=== PATIENT | female | born 1985 | race Caucasian/White ===

== ENCOUNTER → 2016-04-14 | Outpatient (CLI) | payer OTHER ==
[~2016-04-14] MED LIST: /QUET10TA OR; ACET50TA PO; ANUS2.5C2 PR; COLA50CA3 PO; DEPA500T2 OR; DEPO150I IM; EFFE150C OR; FLUO20SO2 OR; IBUP600T26 PO; MOM30SS PO; NAPR500T2 PO; NEUR300C PO; PRENTAB74 PO; PROT20TA11 PO; SERO1TAB PO; TRAM50TA2 OR; VIST50CA PO; ZANA2CAP PO
== END ==
LOC: M OUTALCOH 12:48
PROVIDERS: ATTEND Psychiatry & Neurology Psychiatry
DX: F11.20 Opioid dependence, uncomplicated (principal); F12.20 Cannabis dependence, uncomplicated

== ENCOUNTER 2016-05-23 10:00 | Outpatient (RCR) | payer OTHER | END 2016-05-26 | LOC: M OUTALCOH 10:00 | PROVIDERS: ATTEND Psychiatry & Neurology Psychiatry | DX: F11.20 Opioid dependence, uncomplicated (principal); F12.20 Cannabis dependence, uncomplicated ==

== ENCOUNTER → 2016-06-07 | Outpatient (REF) | payer MEDICAID | LOC: M LAB REF 19:18 | PROVIDERS: ATTEND Physician Assistant | DX: J06.9 Acute upper respiratory infection, unspecified (principal) ==

== ENCOUNTER 2016-06-20 10:00 | Outpatient (RCR) | payer MEDICAID | END 2016-06-25 | LOC: M OUTALCOH 10:00 | PROVIDERS: ATTEND Psychiatry & Neurology Psychiatry | DX: F11.20 Opioid dependence, uncomplicated (principal); F12.20 Cannabis dependence, uncomplicated ==

== ENCOUNTER 2016-07-18 16:44 | Emergency (ER) | payer MEDICAID, OTHER ==
[~2016-07-18] VITALS: Ht 170.2 cm; Wt 103.4 kg
[2016-07-18 16:45] VITALS: BP 108/67
[2016-07-18] MEDS ORDERED: [UNRECOGNIZED DRUG - OTHER] (16:58)
[2016-07-18] MEDS ORDERED: PROZ20CA11 PO (16:58)
[2016-07-18] MEDS ORDERED: TOPA100T8 PO (16:58)
[2016-07-18] MEDS ORDERED: SUBO8MIS SL (16:58)
[2016-07-18 19:10] LABS: MEAN CORPUSCULAR HEMOGLOBIN 27.9 pg (27.0-33.0); MEAN CORPUSCULAR HGB CONC 33.4 g/dl (32.0-36.5); MEAN CORPUSCULAR VOLUME 83.7 fl (80.0-96.0); RED CELL DISTRIBUTION WIDTH 12.7 % (11.5-14.5); WHITE BLOOD COUNT 8.5 K/mm3 (4.0-10.0)
[2016-07-18 19:17] LABS: CONTROL LINE HCG INT CTR LINE PRESENT
[2016-07-18 19:26] LABS: ALBUMIN 3.2 GM/DL (3.2-5.2); ALBUMIN/GLOBULIN RATIO 0.74 (1.00-1.93); ALKALINE PHOSPHATASE 71 U/L (45-117); ALT/SGPT 28 U/L (12-78); AST/SGOT 30 U/L (15-37); BILIRUBIN,DIRECT < 0.1 MG/DL (0.0-0.2); BILIRUBIN,TOTAL 0.2 MG/DL (0.2-1.0); TOTAL PROTEIN 7.5 GM/DL (6.4-8.2)
[2016-07-18] MEDS ORDERED: CLINDAMYCIN 900 MG in APPROPRIATE DILUENT 1 EA IV ONE (19:30)
[2016-07-18] MEDS ORDERED: CLEO300C2 PO (20:36)
== END 2016-07-18 20:59 | disposition home or self-care (01) ==
LOC: M ED 17:02
DX: L03.113 Cellulitis of right upper limb (principal); L03.114 Cellulitis of left upper limb; F17.200 Nicotine dependence, unspecified, uncomplicated; Z79.899 Other long term (current) drug therapy; Z88.5 Allergy status to narcotic agent

== ENCOUNTER → 2016-08-03 | Outpatient (CLI) | payer MEDICAID ==
[~2016-08-03] MED LIST changes: +CLEO300C2 PO; +PROZ20CA11 PO; +SUBO8MIS SL; +TOPA100T8 PO; +[UNRECOGNIZED DRUG - OTHER]
== END ==
LOC: M OUTALCOH 12:52
PROVIDERS: ATTEND Psychiatry & Neurology Psychiatry
DX: F11.20 Opioid dependence, uncomplicated (principal); F12.20 Cannabis dependence, uncomplicated

== ENCOUNTER → 2016-09-25 | Outpatient (CLI) | payer MEDICAID ==
[~2016-09-25] MED LIST changes: +CELE20TA PO; +CELE40TA PO; +CETI10TA PO; +CLON-412; +CLON-412 PO; +CLONI1TA PO; +COLA100C5 PO; +FLUO20CA19; +FLUO20CA19 PO; +FLUTISP; +GABA-282 PO; +GABA600T PO; +MIRT15TA3 PO; +MIRT30TA3 PO; +NAPR250T45 PO; -NAPR500T2 PO; +NAPR500T3 PO; +NAPR500T6 PO; +QUET1TAB8 PO; +TOPA100T12 PO; -TOPA100T8 PO; +TOPI100T9 PO; +TRAZ50TA11 PO; +TRAZO50TA PO
== END ==
LOC: M OUTALCOH 12:05
PROVIDERS: ATTEND Psychiatry & Neurology Psychiatry
DX: F11.20 Opioid dependence, uncomplicated (principal); F12.20 Cannabis dependence, uncomplicated

== ENCOUNTER 2016-11-15 09:19 | Inpatient (IN) | payer MEDICAID ==
[~2016-11-15] VITALS: Ht 170.2 cm; Wt 98.0 kg
[~2016-11-15 09:19] MED LIST changes: -CELE20TA PO; -CELE40TA PO; -CETI10TA PO; -CLON-412; -CLON-412 PO; -CLONI1TA PO; -COLA100C5 PO; -FLUO20CA19; -FLUO20CA19 PO; -FLUTISP; -GABA-282 PO; -GABA600T PO; -MIRT15TA3 PO; -MIRT30TA3 PO; -NAPR250T45 PO; -NAPR500T6 PO; -QUET1TAB8 PO; -TOPI100T9 PO; -TRAZ50TA11 PO; -TRAZO50TA PO
[2016-11-15] MEDS ORDERED: FLUO20CA19 (09:28)
[2016-11-15] MEDS ORDERED: CLON-412 (09:28)
[2016-11-15 11:23] LABS: METHADONE URINE NEGATIVE (NEGATIVE)
[2016-11-15 12:41] LABS: MEAN CORPUSCULAR HEMOGLOBIN 27.7 pg (27.0-33.0); MEAN CORPUSCULAR HGB CONC 31.7 g/dl (32.0-36.5); MEAN CORPUSCULAR VOLUME 87.2 fl (80.0-96.0); WHITE BLOOD COUNT 9.7 K/mm3 (4.0-10.0)
[2016-11-15 12:42] LABS: RED CELL DISTRIBUTION WIDTH 13.3 % (11.5-14.5)
[2016-11-15 13:34] LABS: BLOOD UREA NITROGEN 5 MG/DL (7-18); GLUCOSE, FASTING 110 MG/DL (70-105)
[2016-11-15 13:35] LABS: ALBUMIN 4.3 GM/DL (3.2-5.2); ALBUMIN/GLOBULIN RATIO 1.05 (1.00-1.93); ALKALINE PHOSPHATASE 80 U/L (45-117); ALT/SGPT 39 U/L (12-78); ANION GAP 8 MEQ/L (8-16); AST/SGOT 39 U/L (15-37); BILIRUBIN,DIRECT 0.2 MG/DL (0.0-0.2); BILIRUBIN,TOTAL 0.5 MG/DL (0.2-1.0); CALCIUM LEVEL 9.7 MG/DL (8.5-10.1); CARBON DIOXIDE LEVEL 25 MEQ/L (21-32); CHLORIDE LEVEL 105 MEQ/L (98-107); CREATININE FOR GFR 0.74 MG/DL (0.55-1.02); GLOMERULAR FILTRATION RATE > 60.0 (>60); POTASSIUM SERUM 4.5 MEQ/L (3.5-5.1); SODIUM LEVEL 138 MEQ/L (136-145); TOTAL PROTEIN 8.4 GM/DL (6.4-8.2)
[2016-11-15] MEDS ORDERED: GABA600T PO (19:00)
[2016-11-15] MEDS ORDERED: NAPR500T6 PO (19:00)
[2016-11-15] MEDS ORDERED: FLUO20CA19 PO (19:00)
[2016-11-15] MEDS ORDERED: TOPI100T9 PO (19:00)
[2016-11-15] MEDS ORDERED: SUBO8MIS SL (19:00)
[2016-11-15] MEDS ORDERED: CLON-412 PO (19:00)
[2016-11-15 20:02] VITALS: BP 128/79
[2016-11-15] MEDS ORDERED: MAALOX 30 ML SUSP *UDC PO PRN (21:00)
[2016-11-16 06:58] VITALS: BP 109/55
--- NOTE | 2016-11-16 09:47 | HPEPDOC ---
[facility] Medical History & Physical Date of Admission Nov 16, 2016 History and Physical PCP: Dr Brown ATTENDING: Dr. Nicholas Weber HPI: 31yoF admitted to [facility] for unspecified psychotic disorder, being medically examined today. Patient is a somewhat vague historian and reluctant to provide information at this time. Patient states she is prescribed Suboxone as per Dr. Debby Linares in [facility]. No acute medical complaints today. Denies any fevers, chills, weakness, fatigue , SEGURA, CP, SOB, cough, palpitations, abdominal pain, N/V/D or changes in bowel or bladder habits. PMHx: Anxiety Depression Bipolar disorder Self-mutilation Substance use Chronic back pain Chronic back pain Chronic shoulder pain Chronic pain Chronic headaches. Follows with neurology at [facility]. Follows with neurology at [facility] Astigmatism bilateral eyes. PSHX: Denies SOCHX: Resides in: [facility] Marital Status: Kids: 2 Employment: Unemployed Tobacco use: One half pack per day ETOH: Denies Illicit Drugs: Patient is reluctant to provide history. History of marijuana, opiates. IV Drug Use: Patient is reluctant to provide history, states methamphetamine a few weeks ago, Eboni. Tattoos done unprofessionally: Denies FAMHX: Mother: Unknown Father: Unknown Siblings: One sister Alive, well Children: Alive, diabetes Unexpected deaths due to medical reasons: None. ROS: As noted in HPI, otherwise 11pt ROS of systems reviewed and remarkable only for LMP 10/25/16. PE: GEN: 31 yo F, appears stated age. Well-nourished, well developed. No acute distress. Alert and oriented x 3. Avoids eye contact, reluctant to answer questions. HEENT: Normocephalic, atraumatic. Pupils are equal, round, and reactive to light. Extraocular movements are intact. No nystagmus appreciated. Sclera are nonicteric. Conjunctiva without injection. Nose midline. Nasal turbinates without bogginess. EACs both patent BL. TMs both visualized and beck with good cone of light, no bulging or erythema. No facial asymmetry. Moist mucous membranes. Dentition poor. Pharynx pink and moist. Neck supple, trachea midline. No lymphadenopathy or thyromegaly appreciated. CHEST: Regular rate and rhythm, +S1, +S2 LUNGS: Clear to auscultation bilaterally. No wheezes, rales, or rhonchi. Breathing appears symmetric and easy. Patient is speaking in full sentences. No accessory muscle use. ABD: Round, soft, non-tender, non-distended. +Bowel sounds throughout. No rebound or guarding. No costovertebral angle tenderness. EXT: Pulses 2+ bilaterally dorsalis pedis and radial. No lower extremity edema appreciated. SKIN: [place], dry, warm. Capillary refill <2sec. No rashes. NEURO: Alert and oriented x 3. Cranial nerves III-XII are intact. No focal deficits appreciated. EKG: Pending. A&P: 31yoF admitted to [facility] for unspecified psychotic disorder 1. Psych. Plan per Psychiatry. Obtain baseline EKG to assure the safety of psychiatric medications as they can prolong the QT interval. Check UA/urine culture. 2. Nicotine dependence. Patch available. 3. Chronic migraine headache. Continue Topamax 100 mg by mouth daily. Continue outpatient follow-up with neurology at [facility]. 4. Follow up with PCP on discharge. 5. Substance abuse. Per psychiatry. 6. History of IVDU. Patient declines HIV and hepatitis screening. 7. Chronic neck pain/chronic back pain/chronic shoulder pain/chronic pain. Patient states she does not feel she needs to be evaluated by pain management at this time. Continue gabapentin 600 mg by mouth twice a day. Continue naproxen 500 mg by mouth twice a day as needed. Continue outpatient follow-up. 8. Elevated AST. Recheck CMP in a.m. 9. Abnormal TSH. Recheck TFTs in a.m. 10. Staff member Josselyn SWANSON present throughout exam. Vital Signs Vital Signs Date Time Temp Pulse Resp B/P (MAP) Pulse Ox O2 Delivery O2 Flow Rate FiO2 11/16/16 06:58 98.5 81 16 109/55 (73) Room Air 11/15/16 20:02 18 Laboratory Data Labs 24H Laboratory Tests 2 11/15/16 10:19: Urine Amphetamines Screen NEGATIVE, Urine Benzodiazepines Screen NEGATIVE, Urine Opiates Screen NEGATIVE, Urine Methadone Screen NEGATIVE, Urine Barbiturates Screen NEGATIVE, Urine Phencyclidine Screen NEGATIVE, Urine Cocaine Metabolite Screen NEGATIVE, Urine Cannabinoids Screen NEGATIVE 11/15/16 12:19: Anion Gap 8, Glomerular Filtration Rate > 60.0, Calcium Level 9.7, Aspartate Amino Transf (AST/SGOT) 39H, Alanine Aminotransferase (ALT/SGPT) 39, Alkaline Phosphatase 80, Total Bilirubin 0.5, Direct Bilirubin 0.2, Total Protein 8.4H, Albumin 4.3, Albumin/Globulin Ratio 1.05, Thyroid Stimulating Hormone (TSH) 0.314L, Salicylates Level 5.1, Acetaminophen Level < 2.0L, Ethyl Alcohol Level < 0.003 CBC/BMP Laboratory Tests 11/15/16 12:18 Red Blood Count 5.37, Mean Corpuscular Volume 87.2, Mean Corpuscular Hemoglobin 27.7, Mean Corpuscular Hemoglobin Concent 31.7 L, Red Cell Distribution Width 13.3 11/15/16 12:19 Home Medications Scheduled Buprenorphine/Naloxone (Suboxone 8-2 mg) 1 Mis Mis, 1 MIS SL DAILY Clonidine Hydrochloride (Clonidine HCl) 0.1 Mg Tab, 0.1 MG PO QHS Fluoxetine Hcl (Fluoxetine HCl) 20 Mg Cap, 20 MG PO DAILY Gabapentin (Gabapentin) 600 Mg Tab, 600 MG PO BID Topiramate (Topiramate) 100 Mg Tab, 100 MG PO DAILY Scheduled PRN Naproxen (Naproxen Dr) 500 Mg Tab, 500 MG PO BID PRN for PAIN Allergies Coded Allergies: Codeine (Unverified Allergy, Intermediate, swelling, 11/05/14) Sherice Stack Nov 16, 2016 09:47
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
[2016-11-16] MEDS: TOPIRAMATE (TopAMAX) 100 MG TAB PO SCH (11:34)
[2016-11-16] MEDS: GABAPENTIN 300 MG CAP PO SCH ×2 (11:34→21:14)
[2016-11-16 18:00] VITALS: BP 114/58
--- NOTE | 2016-11-16 19:55 | ECGEPIP ---
Stationary ECG Study [facility] Test Date: 2016-11-16 Pat Name: ARPITA ALBRIGHT Department: Room: [place] [address] Gender: F [employer]: DANNI : 1985 Requested By: Sherice Stack Order Number: [id number] Reading MD: Librado Otero Measurements Intervals [place] Rate: 67 P: 54 MA: 169 QRS: 53 QRSD: 91 T: 28 QT: 399 QTc: 422 Interpretive Statements Normal sinus rhythm Nonspecific ST-T wave abnormalities No significant change when compared to prior tracing of 11/06/2014 Electronically Signed On 11-16-2016 19:55:09 EDT by Librado Otero
[2016-11-17 06:00] VITALS: BP 97/54
[2016-11-17] MEDS: GABAPENTIN 300 MG CAP PO SCH ×2 (09:41→20:03)
[2016-11-17] MEDS: TOPIRAMATE (TopAMAX) 100 MG TAB PO SCH (09:41)
[2016-11-17 10:57] LABS: ALBUMIN 3.7 GM/DL (3.2-5.2); ALBUMIN/GLOBULIN RATIO 1.09 (1.00-1.93); ALKALINE PHOSPHATASE 65 U/L (45-117); ALT/SGPT 31 U/L (12-78); ANION GAP 8 MEQ/L (8-16); AST/SGOT 22 U/L (15-37); BILIRUBIN,TOTAL 0.4 MG/DL (0.2-1.0); BLOOD UREA NITROGEN 11 MG/DL (7-18); CALCIUM LEVEL 9.5 MG/DL (8.5-10.1); CARBON DIOXIDE LEVEL 28 MEQ/L (21-32); CHLORIDE LEVEL 109 MEQ/L (98-107); CREATININE FOR GFR 0.79 MG/DL (0.55-1.02); GLOMERULAR FILTRATION RATE > 60.0 (>60); GLUCOSE, FASTING 87 MG/DL (70-105); POTASSIUM SERUM 4.1 MEQ/L (3.5-5.1); SODIUM LEVEL 145 MEQ/L (136-145); T UPTAKE 36 % (30-39); THYROXINE (T4) 9.4 UG/DL (4.5-12.0); TOTAL PROTEIN 7.1 GM/DL (6.4-8.2)
--- NOTE | 2016-11-17 12:27 | MHIPN ---
DATE: 11/17/2016 Wanda Pina seems slightly clearer today. She is exceptionally tearful. She stated she did Eboni two days ago. The rest of her discussion is vague. She states she does not know where she is going to live, that everyone hates her and that she wants to leave the hospital and that she has been sleeping constantly, but she does not know whether she has a home. MENTAL STATUS EXAMINATION: Her speech initially in the conversation was normal. Thought processes still delayed, poorly associated. The patient may still be having psychotic thoughts, but she is responding to her hallucinations. Judgment and insight are poor. She is fully oriented. Recent and remote memory not able to be determined. Attention and concentration poor. Fund of knowledge not able to be determined. Mood is low. Affect is tearful IMPRESSION: Depression by history. Substance abuse. Psychotic episode, drug induced. At this time, further observation with no immediate treatment decided.
[2016-11-17 12:39] VITALS: BP 124/77
[2016-11-17 18:23] VITALS: BP 115/57
[2016-11-17 19:54] LABS: CONTROL LINE HCG INT CTR LINE PRESENT
[2016-11-17] MEDS: OLANZapine ORAL DISINTEGRATING TAB 5MG PO PRN (20:03)
[2016-11-18 07:06] VITALS: BP 112/56
[2016-11-18] MEDS: TOPIRAMATE (TopAMAX) 100 MG TAB PO SCH (09:15)
[2016-11-18] MEDS: GABAPENTIN 300 MG CAP PO SCH ×2 (09:16→20:30)
[2016-11-18 11:53] VITALS: BP 104/58
--- NOTE | 2016-11-18 17:36 | IPN ---
DATE: 11/18/2016 SUBJECTIVE: Ms. Pina becomes tearful on interview. She feels she has screwed her life up. She is embarrassed that she has walked around town and everyone knows that she has been intoxicated on drugs. She states she would like to go home but she is unable to go home due to the problems she has caused her parents, and is stating she would like to go to rehabilitation. She was in rehabilitation in 2013. MENTAL STATUS EXAMINATION: Speech is sparse. Patient is exceptionally tearful. Thought processes somewhat scattered. No loose associations. No psychotic thoughts. Judgment and insight are good. Fully oriented. Recent and remote memory intact. Attention and concentration normal. No disturbance of language. Full fund of knowledge. Affect is tearful, mood is low. PLAN: At this time, consider preparing the patient to go to drug rehabilitation. DIAGNOSES: 1. Depression reaction. 2. Substance dependence and abuse.
[2016-11-18] MEDS: NAPROXEN 250 MG TAB PO PRN (17:40)
[2016-11-18] MEDS: OLANZapine ORAL DISINTEGRATING TAB 5MG PO PRN (17:41)
[2016-11-18 18:16] VITALS: BP 109/60
[2016-11-19 06:42] VITALS: BP 113/55
[2016-11-19] MEDS: TOPIRAMATE (TopAMAX) 100 MG TAB PO SCH (08:51)
[2016-11-19] MEDS: GABAPENTIN 300 MG CAP PO SCH ×2 (08:51→21:23)
[2016-11-19 12:05] VITALS: BP 112/60
[2016-11-19] MEDS: OLANZapine ORAL DISINTEGRATING TAB 5MG PO PRN ×2 (12:28→18:12)
--- NOTE | 2016-11-19 15:17 | MHIPN ---
DATE: 11/19/2016 Wanda again had difficulty with eye contact and became tearful. She states "I need to take my medicine." She states she wants to get out of here, but she has no significant plan. She says prior to her getting high, she was planning to go to a [facility]'s intermediate and go back to [facility]. She states, "I have no control of things when I am in here." She states, "I don't want anything to happen to my family." She is irritable and states, "I messed everything up." She has numerous worries and concerns, some of which she is sharing, for instance, will she be able to go back to her doctors in [place]. It is my opinion she has other concerns that she is not sharing yet. MENTAL STATUS EXAMINATION: Her thoughts are scattered. No loose associations. No disturbance of speech or language. No psychotic thoughts. Judgment and insight are poor. Fully oriented. Recent and remote memory hard to determine. Attention and concentration are poor. Fund of knowledge seems adequate. Mood is sad and downcast and affect is tearful. PLAN: Further information will be gathered. Patient is presently on her medications that she came in on, gabapentin and Topamax. DIAGNOSES: 1. Affective disorder not otherwise specified (NOS). 2. Substance dependence and abuse.
[2016-11-19] MEDS: ACETAMINOPHEN TAB 650MG DOSE (2X325MG) PO PRN (18:13)
[2016-11-19 18:21] VITALS: BP 116/66
[2016-11-19] MEDS: traZODone 50 MG TAB PO PRN (21:23)
[2016-11-20 06:28] VITALS: BP 120/64
[2016-11-20 06:38] VITALS: BP 110/65
[2016-11-20] MEDS: GABAPENTIN 300 MG CAP PO SCH ×2 (08:46→20:38)
[2016-11-20] MEDS: TOPIRAMATE (TopAMAX) 100 MG TAB PO SCH (08:46)
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
[2016-11-20] MEDS: CitaloPRAM (CeleXA) 20 MG TAB PO SCH (12:22)
[2016-11-20 12:24] VITALS: BP 125/70
[2016-11-20 18:00] VITALS: BP 113/51
[2016-11-20] MEDS: OLANZapine ORAL DISINTEGRATING TAB 5MG PO PRN (19:48)
[2016-11-20] MEDS: NAPROXEN 250 MG TAB PO PRN (20:39)
[2016-11-20 21:00] VITALS: BP 124/66
[2016-11-21 06:23] VITALS: BP 106/59
--- NOTE | 2016-11-21 07:59 | REP ---
Clinical: Abnormal thyroid function tests. Technique: Real time beck scale and color evaluation using linear high frequency transducer. Findings: The thyroid gland is normal in contour, size, echogenicity and overall appearance. No thyroid nodule or cystic changes are appreciated. Right lobe measures 5.6 x 1.9 x 1.8 cm. Left lobe measures 5.6 x 1.4 x 1.1 cm. Isthmus measures 3.3 mm in width. Impression: Normal thyroid ultrasound. Signed by Christopher Ramos MD 11/21/2016 07:50 A
[2016-11-21] MEDS: CitaloPRAM (CeleXA) 20 MG TAB PO SCH (08:48)
[2016-11-21] MEDS: GABAPENTIN 300 MG CAP PO SCH ×2 (08:49→21:33)
[2016-11-21] MEDS: TOPIRAMATE (TopAMAX) 100 MG TAB PO SCH (08:49)
[2016-11-21] MEDS: OLANZapine ORAL DISINTEGRATING TAB 5MG PO PRN ×2 (14:09→21:33)
[2016-11-21] MEDS: ACETAMINOPHEN TAB 650MG DOSE (2X325MG) PO PRN (14:11)
--- NOTE | 2016-11-21 16:42 | IPN ---
DATE: 11/20/2016 Wanda Pina is much clearer today. She states "I need to be tough on myself." She states "I am a piece of shit." She did previously think there were people out to hurt her or her family but she thinks it was due to the drugs. She states she needs to speak with her transitional living services ([facility]) worker and she needs to begin looking for inpatient rehabilitation. She is much clearer today. She was not tearful and was able to complete full sentences. She was less vague. MENTAL STATUS EXAMINATION: Speech was returned to normal. Thought processes seemed clearer and continuous. No loose associations. No psychotic thoughts expressed. Judgment and insight intact. Fully oriented. Recent and remote memory intact. Attention and concentration normal. Full fund of knowledge. Mood is sad. Affect is congruently downcast. IMPRESSION: 1. Acute psychotic reaction. 2. Drug-induced psychosis. 3. Polysubstance dependence. PLAN: To begin appointing the patient towards rehabilitation again.
[2016-11-21 18:00] VITALS: BP 100/50
[2016-11-21] MEDS: traZODone 50 MG TAB PO PRN (21:33)
[2016-11-22 06:55] VITALS: BP 127/71
[2016-11-22] MEDS: CitaloPRAM (CeleXA) 20 MG TAB PO SCH (08:22)
[2016-11-22] MEDS: TOPIRAMATE (TopAMAX) 100 MG TAB PO SCH (08:22)
[2016-11-22] MEDS: GABAPENTIN 300 MG CAP PO SCH ×2 (08:22→20:36)
[2016-11-22] MEDS: OLANZapine ORAL DISINTEGRATING TAB 5MG PO PRN (15:58)
--- NOTE | 2016-11-22 16:27 | MHIPN ---
DATE: 11/22/2016 Wanda Pina discussed how she had, under the influence of drugs, thought that she was being electronically bugged. She states that she needs to go to rehabilitation, but she continues to show ambivalence because she does not want to stay in the hospital and wants to go home prior to going to rehabilitation. She states that she spoke with her parents and that they would allow her to stay at home before going to rehabilitation. I am suggesting that she speak with the town planner, who then can speak with the parents and confirm treatment plan. MENTAL STATUS EXAMINATION: Speech is normal. No disturbance of thought processes. No loose associations. No psychotic thoughts. Judgment and insight are fair. Fully oriented. Recent and remote memory intact. Full attention and concentration. No disturbance of language. Full fund of knowledge. Mood is good. Affect is slightly anxious. DIAGNOSES: 1. Adjustment disorder with depressed mood. 2. Mixed substance abuse.
[2016-11-22 18:00] VITALS: BP 119/75
[2016-11-22] MEDS: NAPROXEN 250 MG TAB PO PRN (20:36)
[2016-11-22] MEDS: traZODone 50 MG TAB PO PRN (20:36)
[2016-11-23 06:00] VITALS: BP 100/55
[2016-11-23] MEDS: GABAPENTIN 300 MG CAP PO SCH ×2 (08:17→20:18)
[2016-11-23] MEDS: OLANZapine ORAL DISINTEGRATING TAB 5MG PO PRN ×2 (08:17→17:06)
[2016-11-23] MEDS: CitaloPRAM (CeleXA) 20 MG TAB PO SCH (08:17)
[2016-11-23] MEDS: TOPIRAMATE (TopAMAX) 100 MG TAB PO SCH (08:17)
--- NOTE | 2016-11-23 10:56 | MHIPN ---
DATE: 11/23/2016 Wanda Pina met with me today. Her mood is better. Her affect is brighter. She does admit that she was feeling that the staff had been talking about her and attempting to cause her harm. She states today she is not feeling that way. Most of these thoughts seem to be attributed to her drug use and the effect it has had on her. She also states that using Prozac also made her hear voices and become extremely anxious. She feels she has "no control" in here. MENTAL STATUS: The patient's speech is normal. Possible continuation of paranoid psychotic thoughts. No loose associations. Judgment and insight are poor. Fully oriented. Recent and remote memory intact. Attention and concentration intact. Full fund of knowledge. Mood is improved. Affect is brighter. DIAGNOSES: Substance induced psychosis. Depression. Polysubstance dependence and abuse. PLAN: Continued observation with regards to patient's paranoia related to drug use and continued planning on patient going to drug rehabilitation.
[2016-11-23] MEDS: ACETAMINOPHEN TAB 650MG DOSE (2X325MG) PO PRN (17:06)
[2016-11-23] MEDS: MOM 30ML SUSPENSION UDC PO PRN (17:46)
[2016-11-23 18:00] VITALS: BP 110/70
[2016-11-23] MEDS: NAPROXEN 250 MG TAB PO PRN (20:18)
[2016-11-23] MEDS: traZODone 50 MG TAB PO PRN (20:18)
[2016-11-24 06:26] VITALS: BP 104/56
[2016-11-24] MEDS: TOPIRAMATE (TopAMAX) 100 MG TAB PO SCH (08:55)
[2016-11-24] MEDS: GABAPENTIN 300 MG CAP PO SCH ×2 (08:55→20:38)
[2016-11-24] MEDS: CitaloPRAM (CeleXA) 20 MG TAB PO SCH (08:55)
--- NOTE | 2016-11-24 10:30 | MHIPN ---
DATE: 11/24/2016 Wanda Pina is anxious to hear which decisions need to be made regarding her going to rehabilitation. She is no longer feeling persecutory. Her mood is improving. Her affect is brighter. She is not denying any type of hallucinations or delusions. MENTAL STATUS EXAMINATION: Speech is normal. No disturbance of thought process. No loose associations. No psychotic thoughts at this time. Judgment and insight are improved. Fully oriented. Recent and remote memory intact. Attention and concentration are intact. No disturbance of language. Full fund of knowledge. Mood is good. Affect is improved, slightly anxious. The patient is having no difficulties with medication and is presently taking citalopram 40 mg by mouth daily, as well as her past medications, which include Topamax and gabapentin. DIAGNOSES: 1. Adjustment disorder with depressed mood. 2. Polysubstance dependence and abuse.
[2016-11-24] MEDS: ACETAMINOPHEN TAB 650MG DOSE (2X325MG) PO PRN (13:12)
[2016-11-24] MEDS: MOM 30ML SUSPENSION UDC PO PRN (13:12)
[2016-11-24] MEDS: OLANZapine ORAL DISINTEGRATING TAB 5MG PO PRN ×2 (13:13→20:38)
[2016-11-24 18:00] VITALS: BP 148/91
[2016-11-24] MEDS: traZODone 50 MG TAB PO PRN (20:39)
[2016-11-25 06:56] VITALS: BP 123/65
[2016-11-25] MEDS: CitaloPRAM (CeleXA) 20 MG TAB PO SCH (08:14)
[2016-11-25] MEDS: TOPIRAMATE (TopAMAX) 100 MG TAB PO SCH (08:14)
[2016-11-25] MEDS: GABAPENTIN 300 MG CAP PO SCH ×2 (08:14→22:19)
[2016-11-25] MEDS: NAPROXEN 250 MG TAB PO PRN ×2 (12:33→20:27)
[2016-11-25] MEDS: OLANZapine ORAL DISINTEGRATING TAB 5MG PO PRN ×2 (12:33→20:27)
[2016-11-25 18:00] VITALS: BP 99/57
[2016-11-25] MEDS: ACETAMINOPHEN TAB 650MG DOSE (2X325MG) PO PRN (18:09)
[2016-11-25] MEDS: traZODone 50 MG TAB PO PRN (20:26)
[2016-11-26 06:00] VITALS: BP 114/62
[2016-11-26] MEDS: TOPIRAMATE (TopAMAX) 100 MG TAB PO SCH (08:27)
[2016-11-26] MEDS: GABAPENTIN 300 MG CAP PO SCH ×2 (08:27→20:21)
[2016-11-26] MEDS: CitaloPRAM (CeleXA) 20 MG TAB PO SCH (08:27)
[2016-11-26] MEDS: NAPROXEN 250 MG TAB PO PRN ×2 (08:27→20:21)
[2016-11-26] MEDS: OLANZapine ORAL DISINTEGRATING TAB 5MG PO PRN ×2 (12:57→20:21)
[2016-11-26 18:00] VITALS: BP 103/59
[2016-11-26] MEDS: traZODone 50 MG TAB PO PRN (20:21)
[2016-11-27 06:38] VITALS: BP 106/63
[2016-11-27] MEDS: TOPIRAMATE (TopAMAX) 100 MG TAB PO SCH (09:03)
[2016-11-27] MEDS: GABAPENTIN 300 MG CAP PO SCH ×2 (09:03→20:35)
[2016-11-27] MEDS: CitaloPRAM (CeleXA) 20 MG TAB PO SCH (09:03)
[2016-11-27] MEDS: OLANZapine ORAL DISINTEGRATING TAB 5MG PO PRN ×2 (09:03→16:55)
--- NOTE | 2016-11-27 15:33 | MHIPNPDOC ---
[facility] Progress Note Progress Note DATE OF SERVICE: 11/27/16 HISTORY: . Patient is a 31 years old female that was admitted to the inpatient unit with acute psychotic symptoms, possible due to substance induced. She was smoking amphetamines. Just before she presented with disorganized thought processes and paranoia. Currently, she denied any psychotic symptoms, however, feels with depressed mood. Currently taking Topamax, citalopram without any side effects. She carried a diagnosis of bipolar disorder that seems to be possible mood disorder due to substance abuse. She denied any ideas of self harm, harm to others. She has fair insight about her substance use, benefits and consequences of use met amphetamine VITAL SIGNS: See below. NEW TEST RESULTS: . CURRENT MEDICATIONS: See below. MENTAL STATUS EXAMINATION: Patient is a 31 years old, female, casually dressed, looks stated age Speech: Is . Clear and coherent Language skills are . Normal Thought processes including: . Linear and goal-directed Thought content: . Abstract reasoning, and computation: . Description of associations: . No ideas of self-harm or harm to others. No hallucinations. No delusions elicited Description of abnormal or psychotic thoughts: . No psychosis Judgment: . Fair to limited Insight: very limited, good, fair. poor. Fair Orientation: . Oriented by 3 Recent and remote memory: . Intact Attention span and concentration: . Adequate Language: . Fluent and coherent Fund of knowledge: . Adequate Mood: ." Ok" Affect: . Full range DIAGNOSES: 1. . Amphetamines abuse versus dependence. Rule out polysubstance abuse 2. . Substance-induced psychosis, resolved Substance-induced mood disorder 3. . ASSESSMENT: 31 years old female that came with symptoms of acute psychosis in the context of substance abuse, currently without psychosis, endorsing depressed mood and anxiety at the tolerating well medications without side effects. Patient is willing to participate in an outpatient substance abuse program MANAGEMENT PLAN: . Continue current medications including citalopram and Trileptal. Discharge plan outpatient substance abuse program TIME SPENT: 25 minutes. Vital Signs Vital Signs Date Time Temp Pulse Resp B/P (MAP) Pulse Ox O2 Delivery O2 Flow Rate FiO2 11/27/16 06:38 97.7 69 14 106/63 (77) 11/26/16 06:00 Room Air Current Medications Current Medications Acetaminophen (Tylenol Tab) 650 mg Q6HP PRN PO HEADACHE or DISCOMFORT Last administered on 11/25/16 18:09; Start 11/15/16 at 21:00; Stop 12/15/16 at 20: 59 Al Hydrox/Mg Hydrox/Simethicone (Mylanta) 30 ml Q4HP PRN PO HEARTBURN/ INDIGESTION; Start 11/15/16 at 21:00; Stop 12/15/16 at 20:59 Citalopram Hydrobromide (CeleXA) 20 mg DAILY PO Last administered on 11/23/16 08:17; Start 11/20/16 at 09:00; Stop 11/24/16 at 06:47; Status DC Citalopram Hydrobromide (CeleXA) 40 mg DAILY PO Last administered on 11/27/16 09:03; Start 11/24/16 at 09:00; Stop 12/24/16 at 08:59 Gabapentin (Neurontin) 600 mg BID PO Last administered on 11/27/16 09:03; Start 11/16/16 at 09:00; Stop 12/16/16 at 08:59 Home Med (Med Rec Complete!) ASDIRECTED XX ; Start 11/15/16 at 19:15; Stop at 19:15; Status DC Magnesium Hydroxide (Milk Of Magnesia) 30 ml DAILYPRN PRN PO CONSTIPATION Last administered on 11/24/16 13:12; Start 11/15/16 at 21:00; Stop 12/15/16 at 20: 59 Naproxen (Naprosyn) 500 mg BID PRN PO PAIN Last administered on 11/26/16 20:21 ; Start 11/16/16 at 09:45; Stop 12/16/16 at 09:44 Olanzapine (ZyPREXA ZYDIS) 5 mg Q4HP PRN PO AGITATION Last administered on 11/27/16 09:03; Start 11/15/16 at 21:00; Stop 12/15/16 at 20:59 Topiramate (TopAMAX) 100 mg DAILY PO Last administered on 11/27/16 09:03; Start 11/16/16 at 09:00; Stop 12/16/16 at 08:59 Trazodone HCl (Desyrel) 50 mg QHSP PRN PO INSOMNIA Last administered on 20:21; Start 11/15/16 at 21:00; Stop 12/15/16 at 20:59 Allergies Coded Allergies: Codeine (Unverified Allergy, Intermediate, swelling, 11/05/14) LISSETTE HUTCHINSON MD Nov 27, 2016 15:33
[2016-11-27] MEDS: ACETAMINOPHEN TAB 650MG DOSE (2X325MG) PO PRN (16:55)
[2016-11-27 18:10] VITALS: BP 102/54
[2016-11-27] MEDS: traZODone 50 MG TAB PO PRN (20:36)
[2016-11-28 06:37] VITALS: BP 117/67
[2016-11-28] MEDS: GABAPENTIN 300 MG CAP PO SCH (08:31)
[2016-11-28] MEDS: CitaloPRAM (CeleXA) 20 MG TAB PO SCH (08:32)
[2016-11-28] MEDS: TOPIRAMATE (TopAMAX) 100 MG TAB PO SCH (08:32)
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
[2016-11-28] MEDS ORDERED: CELE20TA PO (11:14)
[2016-11-28] MEDS ORDERED: TRAZO50TA PO (11:14)
[2016-11-28] MEDS: ACETAMINOPHEN TAB 650MG DOSE (2X325MG) PO PRN (11:57)
== END 2016-11-28 13:15 | disposition home or self-care (01) | DRG 896 ==
LOC: M ED 09:19 → M ED INP 18:29 → M PSY 19:58
PROVIDERS: ADMIT Psychiatry & Neurology Psychiatry; ATTEND Psychiatry & Neurology Psychiatry
DX: F19.94 Other psychoactive substance use, unspecified with psychoactive substance-induced mood disorder (principal); G93.5 Compression of brain; F31.9 Bipolar disorder, unspecified; F15.10 Other stimulant abuse, uncomplicated; G47.00 Insomnia, unspecified; Z88.5 Allergy status to narcotic agent; M54.5 Low back pain; G89.29 Other chronic pain; G43.909 Migraine, unspecified, not intractable, without status migrainosus; M54.2 Cervicalgia; E07.89 Other specified disorders of thyroid; R94.5 Abnormal results of liver function studies; Z79.899 Other long term (current) drug therapy

== ENCOUNTER 2016-11-30 02:44 | Emergency (ER) | payer MEDICAID, OTHER ==
[~2016-11-30] VITALS: Ht 170.2 cm; Wt 107.0 kg
[~2016-11-30 02:44] MED LIST changes: +CELE20TA PO; +CLON-412; +CLON-412 PO; +FLUO20CA19; +FLUO20CA19 PO; +GABA600T PO; +NAPR500T6 PO; +TOPI100T9 PO; +TRAZO50TA PO
[2016-11-30 04:38] LABS: METHADONE URINE NEGATIVE (NEGATIVE)
[2016-11-30 04:48] LABS: MEAN CORPUSCULAR HEMOGLOBIN 27.4 pg (27.0-33.0); MEAN CORPUSCULAR HGB CONC 32.5 g/dl (32.0-36.5); MEAN CORPUSCULAR VOLUME 84.3 fl (80.0-96.0); RED CELL DISTRIBUTION WIDTH 13.6 % (11.5-14.5)
[2016-11-30 05:13] LABS: CONTROL LINE HCG INT CTR LINE PRESENT
[2016-11-30 05:28] LABS: ALBUMIN 4.2 GM/DL (3.2-5.2); ALKALINE PHOSPHATASE 72 U/L (45-117); ALT/SGPT 28 U/L (12-78); ANION GAP 11 MEQ/L (8-16); AST/SGOT 13 U/L (15-37); BILIRUBIN,DIRECT < 0.1 MG/DL (0.0-0.2); BILIRUBIN,TOTAL 0.3 MG/DL (0.2-1.0); BLOOD UREA NITROGEN 8 MG/DL (7-18); CALCIUM LEVEL 9.2 MG/DL (8.5-10.1); CARBON DIOXIDE LEVEL 28 MEQ/L (21-32); CHLORIDE LEVEL 101 MEQ/L (98-107); CREATININE FOR GFR 0.83 MG/DL (0.55-1.02); GLOMERULAR FILTRATION RATE > 60.0 (>60); GLUCOSE, FASTING 120 MG/DL (70-105); POTASSIUM SERUM 4.3 MEQ/L (3.5-5.1); SODIUM LEVEL 140 MEQ/L (136-145); TOTAL PROTEIN 8.4 GM/DL (6.4-8.2)
[2016-11-30] MEDS ORDERED: SERO1TAB PO ×2 (09:44→21:28)
[2016-11-30 10:15] VITALS: BP 137/88
[2016-11-30] MEDS ORDERED: CELE40TA PO (21:28)
[2016-11-30] MEDS ORDERED: MIRT30TA3 PO (21:28)
[2016-11-30] MEDS ORDERED: TRAZ50TA11 PO (21:28)
--- NOTE | 2016-12-01 08:20 | ECGEPIP ---
Stationary ECG Study [facility] - ED Test Date: 2016-11-30 Pat Name: ARPITA ALBRIGHT Department: Room: - Gender: F Watch Assembly Inspector: negrita : 1985 Requested By: Samira Metzger Order Number: [id number] Reading MD: Samira Metzger Measurements Intervals [place] Rate: 72 P: 49 WA: 171 QRS: 46 QRSD: 82 T: -3 QT: 381 QTc: 419 Interpretive Statements SINUS RHYTHM NONSPECIFIC T-WAVE ABNORMALITY SIMILAR 11/16/16 Electronically Signed On 12-01-2016 8:20:03 EDT by Samira Metzger
== END 2016-11-30 10:16 | disposition home or self-care (01) ==
LOC: M ED 02:44
DX: F99 Mental disorder, not otherwise specified (principal); F19.10 Other psychoactive substance abuse, uncomplicated; F17.200 Nicotine dependence, unspecified, uncomplicated; Z79.899 Other long term (current) drug therapy; Z88.5 Allergy status to narcotic agent

== ENCOUNTER 2016-11-30 18:42 | Inpatient (IN) | payer OTHER ==
[~2016-11-30] VITALS: Ht 170.2 cm; Wt 97.3 kg
[2016-11-30 20:18] LABS: METHADONE URINE NEGATIVE (NEGATIVE)
[2016-11-30 20:24] LABS: MEAN CORPUSCULAR HEMOGLOBIN 27.9 pg (27.0-33.0); MEAN CORPUSCULAR VOLUME 84.4 fl (80.0-96.0); RED CELL DISTRIBUTION WIDTH 13.6 % (11.5-14.5); WHITE BLOOD COUNT 13.4 10^3/uL (4.0-10.0)
[2016-11-30 20:52] LABS: CONTROL LINE HCG INT CTR LINE PRESENT
[2016-11-30] MEDS: GABAPENTIN 300 MG CAP PO SCH (21:00)
[2016-11-30] MEDS: cloNIDine 0.1 MG TAB PO SCH (21:00)
[2016-11-30 21:03] LABS: ALBUMIN 4.5 GM/DL (3.2-5.2); ALBUMIN/GLOBULIN RATIO 1.25 (1.00-1.93); ALKALINE PHOSPHATASE 69 U/L (45-117); ALT/SGPT 27 U/L (12-78); ANION GAP 10 MEQ/L (8-16); AST/SGOT 14 U/L (15-37); BILIRUBIN,DIRECT 0.1 MG/DL (0.0-0.2); BILIRUBIN,TOTAL 0.3 MG/DL (0.2-1.0); BLOOD UREA NITROGEN 7 MG/DL (7-18); CALCIUM LEVEL 9.3 MG/DL (8.5-10.1); CARBON DIOXIDE LEVEL 28 MEQ/L (21-32); CHLORIDE LEVEL 103 MEQ/L (98-107); CREATININE FOR GFR 0.83 MG/DL (0.55-1.02); GLOMERULAR FILTRATION RATE > 60.0 (>60); GLUCOSE, FASTING 102 MG/DL (70-105); POTASSIUM SERUM 4.5 MEQ/L (3.5-5.1); SODIUM LEVEL 141 MEQ/L (136-145); TOTAL PROTEIN 8.1 GM/DL (6.4-8.2)
[2016-11-30] MEDS ORDERED: MAALOX 30 ML SUSP *UDC PO PRN (21:15)
[2016-11-30] MEDS ORDERED: traZODone 50 MG TAB PO PRN (21:15)
[2016-11-30] MEDS ORDERED: SERO1TAB PO (21:28)
[2016-11-30] MEDS ORDERED: MIRT30TA3 PO (21:28)
[2016-11-30] MEDS ORDERED: TRAZ50TA11 PO (21:28)
[2016-11-30] MEDS ORDERED: CELE40TA PO (21:28)
[2016-11-30] MEDS ORDERED: OLANZapine ORAL DISINTEGRATING TAB 5MG PO ONE (21:30)
[2016-11-30] MEDS ORDERED: NAPROXEN 250 MG TAB PO PRN (22:00)
[2016-11-30] MEDS ORDERED: QUEtiapine FUMARATE 50 MG TAB PO ONE (22:00)
[2016-12-01 01:01] VITALS: BP 126/93
--- NOTE | 2016-12-01 09:12 | HPEPDOC ---
[facility] Medical History & Physical Date of Admission Nov 30, 2016 History and Physical PCP: Dr Brown ATTENDING: Dr. Nicholas Weber HPI: 31yoF admitted to [facility] for unspecified depressive disorder, being medically examined today. Patient is a somewhat vague historian and has difficult time to provide information at this time. Patient states she is prescribed Suboxone as per Dr. Debby Linares in [facility]. No acute medical complaints today. Denies any fevers, chills, weakness, fatigue , SEGURA, CP, SOB, cough, palpitations, abdominal pain, N/V/D or changes in bowel or bladder habits. PMHx: Anxiety Depression Bipolar disorder Self-mutilation Substance use Chronic back pain Chronic back pain Chronic shoulder pain Chronic pain Chronic headaches. Follows with neurology at [facility]. Follows with neurology at [facility] Astigmatism bilateral eyes. Obesity. BMI 33.6 PSHX: Denies SOCHX: Resides in: [facility] Marital Status: Kids: 2 Employment: Unemployed Tobacco use: One half pack per day ETOH: Denies Illicit Drugs: Patient is reluctant to provide history. History of marijuana, opiates. IV Drug Use: Patient is reluctant to provide history, states methamphetamine a few weeks ago, [place]. Tattoos done unprofessionally: Denies FAMHX: Mother: Unknown Father: Unknown Siblings: One sister Alive, well Children: Alive, diabetes Unexpected deaths due to medical reasons: None. ROS: As noted in HPI, otherwise 11pt ROS of systems reviewed and remarkable only for LMP pt states unknown. PE: GEN: 31 yo F, appears stated age. Well-nourished, well developed. No acute distress. Alert and oriented x 3. Avoids eye contact, reluctant to answer questions. HEENT: Normocephalic, atraumatic. Pupils are equal, round, and reactive to light. Extraocular movements are intact. No nystagmus appreciated. Sclera are nonicteric. Conjunctiva without injection. Nose midline. Nasal turbinates without bogginess. EACs both patent BL. TMs both visualized and beck with good cone of light, no bulging or erythema. No facial asymmetry. Moist mucous membranes. Dentition poor. Pharynx pink and moist. Neck supple, trachea midline. No lymphadenopathy or thyromegaly appreciated. CHEST: Regular rate and rhythm, +S1, +S2 LUNGS: Clear to auscultation bilaterally. No wheezes, rales, or rhonchi. Breathing appears symmetric and easy. Patient is speaking in full sentences. No accessory muscle use. ABD: Round, soft, non-tender, non-distended. +Bowel sounds throughout. No rebound or guarding. No costovertebral angle tenderness. EXT: Pulses 2+ bilaterally dorsalis pedis and radial. No lower extremity edema appreciated. SKIN: [place], dry, warm. Capillary refill <2sec. No rashes. NEURO: Alert and oriented x 3. Cranial nerves III-XII are intact. No focal deficits appreciated. EKG: Pending. A&P: 31yoF admitted to [facility] for unspecified depressive disorder 1. Psych. Plan per Psychiatry. Obtain baseline EKG to assure the safety of psychiatric medications as they can prolong the QT interval. 2. Nicotine dependence. Patch available. 3. Chronic migraine headache. Continue Topamax 100 mg by mouth daily. Continue outpatient follow-up with neurology at [facility]. 4. Follow up with PCP on discharge. 5. Substance use. Per psychiatry. Suboxone as per Dr Vijay CARDONA. 6. History of IVDU. Patient declines HIV and hepatitis screening. 7. Chronic neck pain/chronic back pain/chronic shoulder pain/chronic pain. Patient states she does not feel she needs to be evaluated by pain management at this time. Continue gabapentin 600 mg by mouth twice a day. Continue naproxen 500 mg by mouth twice a day as needed. Continue outpatient follow-up. 8. Leukocytosis. Pt afebrile, asymptomatic. Recheck CBC in AM. 9. Staff member Mahnaz present throughout exam. Vital Signs Vital Signs Date Time Temp Pulse Resp B/P (MAP) Pulse Ox O2 Delivery O2 Flow Rate FiO2 12/01/16 01:01 97.2 73 20 126/93 (104) Room Air 12/01/16 00:50 95 Laboratory Data Labs 24H Laboratory Tests 2 11/30/16 19:44: Urine Amphetamines Screen NEGATIVE, Urine Benzodiazepines Screen NEGATIVE, Urine Opiates Screen NEGATIVE, Urine Methadone Screen NEGATIVE, Urine Barbiturates Screen NEGATIVE, Urine Phencyclidine Screen NEGATIVE, Urine Cocaine Metabolite Screen NEGATIVE, Urine Cannabinoids Screen NEGATIVE 11/30/16 20:13: Anion Gap 10, Glomerular Filtration Rate > 60.0, Calcium Level 9.3, Aspartate Amino Transf (AST/SGOT) 14L, Alanine Aminotransferase (ALT/SGPT) 27, Alkaline Phosphatase 69, Total Bilirubin 0.3, Direct Bilirubin 0.1, Total Protein 8.1, Albumin 4.5, Albumin/Globulin Ratio 1.25, Thyroid Stimulating Hormone (TSH) 2.270, Human Chorionic Gonadotropin, Qual NEGATIVE, Salicylates Level 2.5L, Acetaminophen Level < 2.0L, Ethyl Alcohol Level < 0.003 CBC/BMP Laboratory Tests 11/30/16 20:13 Red Blood Count 5.24, Mean Corpuscular Volume 84.4, Mean Corpuscular Hemoglobin 27.9, Mean Corpuscular Hemoglobin Concent 33.0, Red Cell Distribution Width 13.6 Home Medications Scheduled Buprenorphine/Naloxone (Suboxone 8-2 mg) 1 Mis Mis, 1 MIS SL DAILY Citalopram Hydrobromide (Celexa) 40 Mg Tab, 40 MG PO DAILY Clonidine Hydrochloride (Clonidine HCl) 0.1 Mg Tab, 0.1 MG PO BID Gabapentin (Gabapentin) 600 Mg Tab, 600 MG PO BID Quetiapine Fumerate (Seroquel) 100 Mg Tab, 100 MG PO QHS PATIENT HAS NOT STARTED YET Topiramate (Topiramate) 100 Mg Tab, 100 MG PO DAILY Scheduled PRN Mirtazapine (Mirtazapine) 30 Mg Tab, 30 MG PO QHS PRN for SLEEP Naproxen (Naproxen Dr) 500 Mg Tab, 500 MG PO BID PRN for PAIN Trazodone HCl (Trazodone HCl) 50 Mg Tab, 50 MG PO QHS PRN for INSOMNIA Allergies Coded Allergies: Codeine (Unverified Allergy, Intermediate, swelling, 11/05/14) Sherice Stack Dec 01, 2016 09:12
[2016-12-01] MEDS: BUPRENORPHINE/NALOXONE 8-2MG SUBLINGUAL TABLET(SUBOXONE) SL SCH (09:13)
[2016-12-01] MEDS: CitaloPRAM (CeleXA) 20 MG TAB PO SCH (09:14)
[2016-12-01] MEDS: GABAPENTIN 300 MG CAP PO SCH ×2 (09:14→20:28)
[2016-12-01] MEDS: cloNIDine 0.1 MG TAB PO SCH ×2 (09:14→20:28)
[2016-12-01] MEDS: TOPIRAMATE (TopAMAX) 100 MG TAB PO SCH (09:14)
[2016-12-01] MEDS: QUEtiapine FUMARATE 50 MG TAB PO SCH (09:16)
--- NOTE | 2016-12-01 15:46 | MHHPEPDOC ---
[facility] History & Physical History and Physical DATE OF ADMISSION: Nov 30, 2016 at 21:09 LEGAL STATUS AT ADMISSION: . 9:39 emergency admission CHIEF COMPLAINT: . Worsening paranoid delusions, ideas of self-harm danger to others at home HISTORY OF THE PRESENT ILLNESS: Patient is a 31-year-old female, who was discharged last week from the unit after being admitted inpatient for about 2 weeks. Patient went home and according to the mother started to elicit paranoid delusions, ideas of self-harm with plans to overdose on pills. Mother is concerned as patient has a daughter living with her home and she has been paranoid with the daughter telling her that she will hurt herself. Mother doesn' t feel safe with her at home. Mother thinks that if she is going out of the house by herself, She will hurt herself or hurt other people as she is paranoid. On interview yesterday morning in the E.D she did not elicit any delusions, denied any symptoms of psychosis or ideas of self-harm. Patient then went home and began with the described behaviors and was brought to ED then admitted. Patient has been isolated mostly in bed. Reports that she is tired, denied any symptoms of psychosis, denied making any statements of self harm. Denied had any paranoid ideas. Patient was taken the medications after discharge as prescribed. She is scheduled to go to inpatient rehabilitation program next Sunday. Patient was started on the medications that she had on discharge and was started on Seroquel 150 mg daily to be titrated to therapeutic doses. Patient denied smoking or using any other drugs after discharged. Urine toxicology is negative PSYCHIATRIC REVIEW OF SYSTEMS: Affective: . Endorsed depressed mood Anxiety: . Denied Trauma: . Denied recent trauma Psychosis: . No psychosis observed, but reported paranoid ideas and self-harm ideas PAST PSYCHIATRIC HISTORY: Prior Psychiatric Disorder: . Suspected bipolar disorder versus substance- induced psychosis/mood disorder Outpatient Treatment: . He has included multiple substance abuse treatments before Suicidal/Self injurious: . No known Psychotropic Medication History: . Patient has been taking antipsychotic somewhat stubborn answers before reportedly has taken Seroquel before with improvement of symptoms. However, she has been compliant on and off due to substance abuse ALLERGIES: Please see below. FAMILY PSYCHIATRIC HISTORY: . Unknown SOCIAL HISTORY: Patient is single, unemployed, living with parents, and she has a daughter. Family is very supportive SUBSTANCE ABUSE HISTORY: . History of amphetamines, alcohol, marijuana recent use of amphetamines that led her to a recent inpatient admission due to psychosis after smoking PAST MEDICAL/SURGICAL HISTORY: VITAL SIGNS: Temperature , pulse , respiratory rate , blood pressure , pulse oximetry % on room air. MENTAL STATUS EXAMINATION: General appearance: Patient 31 years old female looks stated age with fair grooming and hygiene, cooperative Speech: . Fluent and coherent Thought processes: . Linear and goal directed Thought content: . No suicidal or homicidal ideas. No delusions elicited. No perceptual disturbances Abstract reasoning and computation: . Intact Description of associations: . Adequate Description of abnormal or psychotic thoughts: . No psychosis Judgment: . Limited Insight: . Limited Orientation: . Oriented 3 Recent and remote memory: . Intact Attention span and concentration: . Adequate Fund of knowledge: . Average Mood: "I think okay." Affect: Constricted. DIAGNOSES: 1. . Substance-induced psychosis/ mood disorder 2. . 3. . ASSESSMENT: None 11 years old female readmitted to the inpatient unit after being discharged several days ago, according to family patient was paranoid, endorsing ideas of self-harm by overdosing on pills. Patient is a danger to others ,cannot function in the community. Patient is scheduled to go to a substance abuse rehabilitation program next week. She is starting Seroquel 150 mg daily to be titrated for treatment of symptoms of psychosis and mood stabilization PROBLEM LIST: 1. . Mood Symptoms, psychotic symptoms 2. . Substance abuse including amphetamines, alcohol, cannabis 3. . INITIAL TREATMENT PLAN: 1. Patient was admitted on an involuntary basis 2. Complete history was obtained. 3. With patients permission, family will be contacted and database will be expanded. 4. Patients medication regimen will be reviewed and changed accordingly. 5. Patient will be provided with protected environment. 6. Patient will be treated with individual, group, and milieu therapies. 7. Patient will receive supportive psych-education. 8. Discharge planning will commence immediately. 9. Outpatient follow-up treatment will be strongly recommended. 10. The initial treatment plan will focus initially on: * Depression/psychotic symptoms. * Substance abuse. ESTIMATED LENGTH OF STAY: 4-6 days TIME SPENT COUNSELING AND COORDINATING INITIAL CARE: 50 minutes. Laboratory Data 24H Labs Laboratory Tests 2 11/30/16 19:44: Urine Amphetamines Screen NEGATIVE, Urine Benzodiazepines Screen NEGATIVE, Urine Opiates Screen NEGATIVE, Urine Methadone Screen NEGATIVE, Urine Barbiturates Screen NEGATIVE, Urine Phencyclidine Screen NEGATIVE, Urine Cocaine Metabolite Screen NEGATIVE, Urine Cannabinoids Screen NEGATIVE 11/30/16 20:13: Anion Gap 10, Glomerular Filtration Rate > 60.0, Calcium Level 9.3, Aspartate Amino Transf (AST/SGOT) 14L, Alanine Aminotransferase (ALT/SGPT) 27, Alkaline Phosphatase 69, Total Bilirubin 0.3, Direct Bilirubin 0.1, Total Protein 8.1, Albumin 4.5, Albumin/Globulin Ratio 1.25, Thyroid Stimulating Hormone (TSH) 2.270, Human Chorionic Gonadotropin, Qual NEGATIVE, Salicylates Level 2.5L, Acetaminophen Level < 2.0L, Ethyl Alcohol Level < 0.003 CBC/BMP Laboratory Tests 11/30/16 20:13 Red Blood Count 5.24, Mean Corpuscular Volume 84.4, Mean Corpuscular Hemoglobin 27.9, Mean Corpuscular Hemoglobin Concent 33.0, Red Cell Distribution Width 13.6 Medications Scheduled Buprenorphine/Naloxone (Suboxone 8-2 mg) 1 Mis Mis, 1 MIS SL DAILY, (Reported) Citalopram Hydrobromide (Celexa) 40 Mg Tab, 40 MG PO DAILY, (Reported) Clonidine Hydrochloride (Clonidine HCl) 0.1 Mg Tab, 0.1 MG PO BID, (Reported) Gabapentin (Gabapentin) 600 Mg Tab, 600 MG PO BID, (Reported) Quetiapine Fumerate (Seroquel) 100 Mg Tab, 100 MG PO QHS, (Reported) PATIENT HAS NOT STARTED YET Topiramate (Topiramate) 100 Mg Tab, 100 MG PO DAILY, (Reported) Scheduled PRN Mirtazapine (Mirtazapine) 30 Mg Tab, 30 MG PO QHS PRN for SLEEP, (Reported) Naproxen (Naproxen Dr) 500 Mg Tab, 500 MG PO BID PRN for PAIN, (Reported) Trazodone HCl (Trazodone HCl) 50 Mg Tab, 50 MG PO QHS PRN for INSOMNIA, ( Reported) Allergies Coded Allergies: Codeine (Unverified Allergy, Intermediate, swelling, 11/05/14) LISSETTE HUTCHINSON MD Dec 01, 2016 15:37
[2016-12-01 18:00] VITALS: BP 126/76
[2016-12-01] MEDS: MIRTAZAPINE 15 MG TAB PO SCH (20:27)
[2016-12-01] MEDS: ACETAMINOPHEN TAB 650MG DOSE (2X325MG) PO PRN (20:29)
[2016-12-01] MEDS ORDERED: QUEtiapine FUMARATE 100 MG TAB PO SCH (21:00)
[2016-12-02 07:02] LABS: MEAN CORPUSCULAR HEMOGLOBIN 27.5 pg (27.0-33.0); MEAN CORPUSCULAR HGB CONC 32.2 g/dl (32.0-36.5); MEAN CORPUSCULAR VOLUME 85.3 fl (80.0-96.0); RED CELL DISTRIBUTION WIDTH 13.8 % (11.5-14.5); WHITE BLOOD COUNT 8.1 10^3/uL (4.0-10.0)
[2016-12-02 07:03] VITALS: BP 82/52
[2016-12-02] MEDS: BUPRENORPHINE/NALOXONE 8-2MG SUBLINGUAL TABLET(SUBOXONE) SL SCH (08:44)
[2016-12-02] MEDS: CitaloPRAM (CeleXA) 20 MG TAB PO SCH (08:44)
[2016-12-02] MEDS: GABAPENTIN 300 MG CAP PO SCH ×2 (08:45→21:08)
[2016-12-02] MEDS: TOPIRAMATE (TopAMAX) 100 MG TAB PO SCH (08:45)
[2016-12-02] MEDS: QUEtiapine FUMARATE 50 MG TAB PO SCH (08:46)
[2016-12-02] MEDS: cloNIDine 0.1 MG TAB PO SCH ×2 (08:46→21:08)
--- NOTE | 2016-12-02 13:37 | MHIPNPDOC ---
[facility] Progress Note Progress Note DATE OF SERVICE: 12/02/16 HISTORY: . Patient is a 31-year-old full female with history of substance abuse, suspected bipolar disorder by history that was readmitted to the unit after reported paranoid delusions and self-harm ideas at home. Patient denied any symptoms of psychosis. No delusions elicited. No ideas of self-harm. Denied any side effects of medications. Patient is scheduled for going to long-term rehabilitation earlier next week and was started recently in Seroquel and will continue titrating the medication to therapeutic doses VITAL SIGNS: See below. NEW TEST RESULTS: . CURRENT MEDICATIONS: See below. MENTAL STATUS EXAMINATION: General appearance: Patient 31 years old female looks stated age with fair grooming and hygiene, cooperative Speech: . Fluent and coherent Thought processes: . Linear and goal directed Thought content: . No suicidal or homicidal ideas. No delusions elicited. No perceptual disturbances Abstract reasoning and computation: . Intact Description of associations: . Adequate Description of abnormal or psychotic thoughts: . No psychosis Judgment: . Limited Insight: . Limited Orientation: . Oriented 3 Recent and remote memory: . Intact Attention span and concentration: . Adequate Fund of knowledge: . Average Mood: "okay." Affect: Constricted. DIAGNOSES: 1. . Substance-induced psychosis versus substance-induced mood disorder 2. . 3. . ASSESSMENT: 31-year-old female was admitted due to paranoid delusions and self-harm ideas clearly doing better. No symptoms of psychosis. No mood symptoms or self-harm ideas. Patient scheduled to be discharged to long-term rehabilitation facility earlier next week MANAGEMENT PLAN: . Continue current medications including titration of Seroquel to therapeutic doses Discharge to long-term rehabilitation earlier in the week TIME SPENT: 25 minutes. Vital Signs Vital Signs Date Time Temp Pulse Resp B/P (MAP) Pulse Ox O2 Delivery O2 Flow Rate FiO2 12/02/16 08:46 128/75 12/02/16 07:03 97.3 81 18 12/01/16 01:01 Room Air 12/01/16 00:50 95 Laboratory Data CBC/BMP Laboratory Tests 12/02/16 06:54 Red Blood Count 4.84, Mean Corpuscular Volume 85.3, Mean Corpuscular Hemoglobin 27.5, Mean Corpuscular Hemoglobin Concent 32.2, Red Cell Distribution Width 13.8 Current Medications Current Medications Acetaminophen (Tylenol Tab) 650 mg Q6HP PRN PO HEADACHE or DISCOMFORT Last administered on 12/01/16 20:29; Start 11/30/16 at 21:15; Stop 12/30/16 at 21:14 Al Hydrox/Mg Hydrox/Simethicone (Mylanta) 30 ml Q4HP PRN PO HEARTBURN/ INDIGESTION; Start 11/30/16 at 21:15; Stop 12/30/16 at 21:14 Buprenorphine/ Naloxone (Suboxone 8/2mg) 1 tab DAILY SL Last administered on 08:44; Start 12/01/16 at 09:00; Stop 12/08/16 at 08:59 Citalopram Hydrobromide (CeleXA) 40 mg DAILY PO Last administered on 12/02/16 08:44; Start 12/01/16 at 09:00; Stop 12/31/16 at 08:59 Clonidine HCl (Catapres) 0.1 mg BID PO Last administered on 12/02/16 08:46; Start 11/30/16 at 21:00; Stop 12/30/16 at 20:59 Gabapentin (Neurontin) 600 mg BID PO Last administered on 12/02/16 08:45; Start 11/30/16 at 21:00; Stop 12/30/16 at 20:59 Home Med (Med Rec Complete!) ASDIRECTED XX ; Start 11/30/16 at 21:30; Stop 11/30/16 at 21:33; Status DC Magnesium Hydroxide (Milk Of Magnesia) 30 ml DAILYPRN PRN PO CONSTIPATION; Start 11/30/16 at 21:15; Stop 12/30/16 at 21:14 Mirtazapine (Remeron) 30 mg QHS PO Last administered on 12/01/16 20:27; Start 12/01/16 at 21:00; Stop 12/31/16 at 20:59 Naproxen (Naprosyn) 500 mg BIDP PRN PO PAIN; Start 11/30/16 at 22:00; Stop 12/30/16 at 21:59 Quetiapine Fumarate (SEROquel) 50 mg QAM PO Last administered on 12/02/16 08: 46; Start 12/01/16 at 09:00; Stop 12/31/16 at 08:59 Quetiapine Fumarate (SEROquel) 100 mg QHS PO Last administered on 12/01/16 20: 28; Start 12/01/16 at 21:00; Stop 12/31/16 at 20:59 Topiramate (TopAMAX) 100 mg DAILY PO Last administered on 12/02/16 08:45; Start 12/01/16 at 09:00; Stop 12/31/16 at 08:59 Trazodone HCl (Desyrel) 50 mg QHSP PRN PO INSOMNIA; Start 11/30/16 at 21:15; Stop 11/30/16 at 22:11; Status DC Allergies Coded Allergies: Codeine (Unverified Allergy, Intermediate, swelling, 11/05/14) LISSETTE HUTCHINSON MD Dec 02, 2016 13:37
[2016-12-02] MEDS ORDERED: QUEtiapine FUMARATE 200 MG TAB PO SCH (21:00)
[2016-12-02] MEDS: MIRTAZAPINE 15 MG TAB PO SCH (21:08)
[2016-12-02] MEDS: MOM 30ML SUSPENSION UDC PO PRN (21:08)
[2016-12-03 06:33] VITALS: BP 101/51
[2016-12-03] MEDS: GABAPENTIN 300 MG CAP PO SCH ×2 (08:31→21:04)
[2016-12-03] MEDS: BUPRENORPHINE/NALOXONE 8-2MG SUBLINGUAL TABLET(SUBOXONE) SL SCH (08:32)
[2016-12-03] MEDS: CitaloPRAM (CeleXA) 20 MG TAB PO SCH (08:32)
[2016-12-03] MEDS: cloNIDine 0.1 MG TAB PO SCH ×2 (08:32→21:05)
[2016-12-03] MEDS: TOPIRAMATE (TopAMAX) 100 MG TAB PO SCH (08:32)
[2016-12-03] MEDS: ACETAMINOPHEN TAB 650MG DOSE (2X325MG) PO PRN (13:43)
--- NOTE | 2016-12-03 14:23 | MHIPNPDOC ---
[facility] Progress Note Progress Note DATE OF SERVICE: 12/03/16 HISTORY: . Patient is a 31-year-old full female with history of substance abuse, suspected bipolar disorder by history that was readmitted to the unit after reported paranoid delusions and self-harm ideas at home. Patient denied any symptoms of psychosis. No delusions elicited. No ideas of self-harm. Denied any side effects of medications. Will continue to titrate seroquel to therapeutic doses. VITAL SIGNS: See below. NEW TEST RESULTS: . CURRENT MEDICATIONS: See below. MENTAL STATUS EXAMINATION: General appearance: Patient 31 years old female looks stated age with fair grooming and hygiene, cooperative Speech: . Fluent and coherent Thought processes: . Linear and goal directed Thought content: . No suicidal or homicidal ideas. No delusions elicited. No perceptual disturbances Abstract reasoning and computation: . Intact Description of associations: . Adequate Description of abnormal or psychotic thoughts: . No psychosis Judgment: . Limited Insight: . Limited Orientation: . Oriented 3 Recent and remote memory: . Intact Attention span and concentration: . Adequate Fund of knowledge: . Average Mood: "okay." Affect: Constricted. DIAGNOSES: 1. . Substance-induced psychosis versus substance-induced mood disorder 2. . 3. . ASSESSMENT: 31-year-old female was admitted due to paranoid delusions and self-harm ideas clearly doing better. No symptoms of psychosis. No mood symptoms or self-harm ideas. Patient scheduled to be discharged to long-term rehabilitation facility earlier next week MANAGEMENT PLAN: . Continue current medications including titration of Seroquel to therapeutic doses Discharge to long-term rehabilitation earlier in the week TIME SPENT: 25 minutes. Vital Signs Vital Signs Date Time Temp Pulse Resp B/P (MAP) Pulse Ox O2 Delivery O2 Flow Rate FiO2 12/03/16 08:32 114/59 12/03/16 06:33 98.1 69 18 12/01/16 01:01 Room Air 12/01/16 00:50 95 Current Medications Current Medications Acetaminophen (Tylenol Tab) 650 mg Q6HP PRN PO HEADACHE or DISCOMFORT Last administered on 12/03/16t 13:43; Start 11/30/16 at 21:15; Stop 12/30/16 at 21:14 Al Hydrox/Mg Hydrox/Simethicone (Mylanta) 30 ml Q4HP PRN PO HEARTBURN/ INDIGESTION; Start 11/30/16 at 21:15; Stop 12/30/16 at 21:14 Buprenorphine/ Naloxone (Suboxone 8/2mg) 1 tab DAILY SL Last administered on 08:32; Start 12/01/16 at 09:00; Stop 12/08/16 at 08:59 Citalopram Hydrobromide (CeleXA) 40 mg DAILY PO Last administered on 12/03/16 08:32; Start 12/01/16 at 09:00; Stop 12/31/16 at 08:59 Clonidine HCl (Catapres) 0.1 mg BID PO Last administered on 12/03/16 08:32; Start 11/30/16 at 21:00; Stop 12/30/16 at 20:59 Gabapentin (Neurontin) 600 mg BID PO Last administered on 12/03/16 08:31; Start 11/30/16 at 21:00; Stop 12/30/16 at 20:59 Home Med (Med Rec Complete!) ASDIRECTED XX ; Start 11/30/16 at 21:30; Stop 11/30/16 at 21:33; Status DC Magnesium Hydroxide (Milk Of Magnesia) 30 ml DAILYPRN PRN PO CONSTIPATION Last administered on 12/02/16 21:08; Start 11/30/16 at 21:15; Stop 12/30/16 at 21:14 Mirtazapine (Remeron) 30 mg QHS PO Last administered on 12/02/16 21:08; Start 12/01/16 at 21:00; Stop 12/31/16 at 20:59 Naproxen (Naprosyn) 500 mg BIDP PRN PO PAIN; Start 11/30/16 at 22:00; Stop 12/30/16 at 21:59 Quetiapine Fumarate (SEROquel) 50 mg QAM PO Last administered on 12/02/16 08: 46; Start 12/01/16 at 09:00; Stop 12/02/16 at 13:38; Status DC Quetiapine Fumarate (SEROquel) 100 mg QHS PO Last administered on 12/01/16 20: 28; Start 12/01/16 at 21:00; Stop 12/02/16 at 13:38; Status DC Quetiapine Fumarate (SEROquel) 200 mg QHS PO ; Start 12/02/16 at 21:00; Stop at 20:59 Topiramate (TopAMAX) 100 mg DAILY PO Last administered on 12/03/16t 08:32; Start 12/01/16 at 09:00; Stop 12/31/16 at 08:59 Trazodone HCl (Desyrel) 50 mg QHSP PRN PO INSOMNIA; Start 11/30/16 at 21:15; Stop 11/30/16 at 22:11; Status DC Allergies Coded Allergies: Codeine (Unverified Allergy, Intermediate, swelling, 11/05/14) LISSETTE HUTCHINSON MD Dec 03, 2016 14:23
[2016-12-03] MEDS: MOM 30ML SUSPENSION UDC PO PRN (15:11)
[2016-12-03 18:00] VITALS: BP 113/55
[2016-12-03] MEDS: QUEtiapine FUMARATE 100 MG TAB PO SCH (21:04)
[2016-12-03] MEDS: MIRTAZAPINE 15 MG TAB PO SCH (21:05)
[2016-12-04 07:16] VITALS: BP 109/55
[2016-12-04] MEDS: BUPRENORPHINE/NALOXONE 8-2MG SUBLINGUAL TABLET(SUBOXONE) SL SCH (08:36)
[2016-12-04] MEDS: CitaloPRAM (CeleXA) 20 MG TAB PO SCH (08:37)
[2016-12-04] MEDS: cloNIDine 0.1 MG TAB PO SCH ×2 (08:37→20:18)
[2016-12-04] MEDS: GABAPENTIN 300 MG CAP PO SCH ×2 (08:37→20:17)
[2016-12-04] MEDS: TOPIRAMATE (TopAMAX) 100 MG TAB PO SCH (08:37)
--- NOTE | 2016-12-04 14:11 | MHIPNPDOC ---
[facility] Progress Note Progress Note DATE OF SERVICE: 12/04/16 HISTORY: . Patient is a 31-year-old full female with history of substance abuse, suspected bipolar disorder by history that was readmitted to the unit after reported paranoid delusions and self-harm ideas at home. Patient denied any symptoms of psychosis. No delusions elicited. No ideas of self-harm. Denied any side effects of medications. Will continue to titrate seroquel to therapeutic doses. She complained of urinary retention, it takes her sometime to be able to void. Denied dysuria, urgency or burning on urination. UA is negative, no UTI. VITAL SIGNS: See below. NEW TEST RESULTS: . CURRENT MEDICATIONS: See below. MENTAL STATUS EXAMINATION: General appearance: Patient 31 years old female looks stated age with fair grooming and hygiene, cooperative Speech: . Fluent and coherent Thought processes: . Linear and goal directed Thought content: . No suicidal or homicidal ideas. No delusions elicited. No perceptual disturbances Abstract reasoning and computation: . Intact Description of associations: . Adequate Description of abnormal or psychotic thoughts: . No psychosis Judgment: . Limited Insight: . Limited Orientation: . Oriented 3 Recent and remote memory: . Intact Attention span and concentration: . Adequate Fund of knowledge: . Average Mood: "okay." Affect: Constricted. DIAGNOSES: 1. . Substance-induced psychosis versus substance-induced mood disorder 2. . 3. . ASSESSMENT: 31-year-old female was admitted due to paranoid delusions and self-harm ideas clearly doing better. No symptoms of psychosis. No mood symptoms or self-harm ideas. Patient scheduled to be discharged to rehab on 12/05 in am. MANAGEMENT PLAN: . Continue current medications including titration of Seroquel to therapeutic doses Discharge plan will consult medical services fro urinary retention TIME SPENT: 25 minutes. Vital Signs Vital Signs Date Time Temp Pulse Resp B/P (MAP) Pulse Ox O2 Delivery O2 Flow Rate FiO2 12/04/16 08:37 109/55 12/04/16 07:16 98.8 79 18 Room Air 12/01/16 00:50 95 Laboratory Data 24H Labs Laboratory Tests 2 12/03/16 17:55: Urine Appearance CLEAR, Urine Color STRAW, Urine pH 7.0, Urine Specific [place] 1.004, Urine Protein NEGATIVE, Urine Glucose (UA) NEGATIVE, Urine Ketones NEGATIVE, Urine Urobilinogen 0.2, Urine Bilirubin NEGATIVE, Urine Leukocyte Esterase NEGATIVE, Urine Blood NEGATIVE, Urine Nitrite NEGATIVE, Urine WBC (Auto ) 0, Urine RBC (Auto) 0, Urine Hyaline Casts (Auto) 0, Urine Bacteria (Auto) 1+H , Urine Squamous Epithelial Cells 0, Urine Mucus (Auto) SMALL, Urine Sperm (Auto ) Current Medications Current Medications Acetaminophen (Tylenol Tab) 650 mg Q6HP PRN PO HEADACHE or DISCOMFORT Last administered on 12/03/16 13:43; Start 11/30/16 at 21:15; Stop 12/30/16 at 21:14 Al Hydrox/Mg Hydrox/Simethicone (Mylanta) 30 ml Q4HP PRN PO HEARTBURN/ INDIGESTION; Start 11/30/16 at 21:15; Stop 12/30/16 at 21:14 Buprenorphine/ Naloxone (Suboxone 8/2mg) 1 tab DAILY SL Last administered on 08:36; Start 12/01/16 at 09:00; Stop 12/08/16 at 08:59 Citalopram Hydrobromide (CeleXA) 40 mg DAILY PO Last administered on 12/04/16 08:37; Start 12/01/16 at 09:00; Stop 12/31/16 at 08:59 Clonidine HCl (Catapres) 0.1 mg BID PO Last administered on 12/04/16 08:37; Start 11/30/16 at 21:00; Stop 12/30/16 at 20:59 Gabapentin (Neurontin) 600 mg BID PO Last administered on 12/04/16 08:37; Start 11/30/16 at 21:00; Stop 12/30/16 at 20:59 Home Med (Med Rec Complete!) ASDIRECTED XX ; Start 11/30/16 at 21:30; Stop 11/30/16 at 21:33; Status DC Magnesium Hydroxide (Milk Of Magnesia) 30 ml DAILYPRN PRN PO CONSTIPATION Last administered on 12/03/16 15:11; Start 11/30/16 at 21:15; Stop 12/30/16 at 21:14 Mirtazapine (Remeron) 30 mg QHS PO Last administered on 12/03/16 21:05; Start 12/01/16 at 21:00; Stop 12/31/16 at 20:59 Naproxen (Naprosyn) 500 mg BIDP PRN PO PAIN; Start 11/30/16 at 22:00; Stop 12/30/16 at 21:59 Quetiapine Fumarate (SEROquel) 50 mg QAM PO Last administered on 12/02/16 08: 46; Start 12/01/16 at 09:00; Stop 12/02/16 at 13:38; Status DC Quetiapine Fumarate (SEROquel) 100 mg QHS PO Last administered on 12/01/16 20: 28; Start 12/01/16 at 21:00; Stop 12/02/16 at 13:38; Status DC Quetiapine Fumarate (SEROquel) 200 mg QHS PO ; Start 12/02/16 at 21:00; Stop at 16:01; Status DC Quetiapine Fumarate (SEROquel) 250 mg QHS PO Last administered on 12/03/16 21: 04; Start 12/03/16 at 21:00; Stop 01/02/17 at 20:59 Topiramate (TopAMAX) 100 mg DAILY PO Last administered on 12/04/16 08:37; Start 12/01/16 at 09:00; Stop 12/31/16 at 08:59 Trazodone HCl (Desyrel) 50 mg QHSP PRN PO INSOMNIA; Start 11/30/16 at 21:15; Stop 11/30/16 at 22:11; Status DC Allergies Coded Allergies: Codeine (Unverified Allergy, Intermediate, swelling, 11/05/14) LISSETTE HUTCHINSON MD Dec 04, 2016 14:11
[2016-12-04 18:00] VITALS: BP 115/57
[2016-12-04] MEDS: MIRTAZAPINE 15 MG TAB PO SCH (20:17)
[2016-12-04] MEDS: QUEtiapine FUMARATE 100 MG TAB PO SCH (21:00)
[2016-12-05 06:57] VITALS: BP 109/56
[2016-12-05] MEDS: MOM 30ML SUSPENSION UDC PO PRN (08:37)
[2016-12-05] MEDS: TOPIRAMATE (TopAMAX) 100 MG TAB PO SCH (08:38)
[2016-12-05] MEDS: cloNIDine 0.1 MG TAB PO SCH ×2 (08:38→20:49)
[2016-12-05] MEDS: CitaloPRAM (CeleXA) 20 MG TAB PO SCH (08:38)
[2016-12-05] MEDS: BUPRENORPHINE/NALOXONE 8-2MG SUBLINGUAL TABLET(SUBOXONE) SL SCH (08:39)
[2016-12-05] MEDS: GABAPENTIN 300 MG CAP PO SCH ×2 (08:39→20:48)
[2016-12-05] MEDS ORDERED: MIRALAX *UNIT DOSE* 17GM PACKET PO PRN (09:00)
[2016-12-05] MEDS ORDERED: DOCUSATE SODIUM 100 MG CAP PO PRN (09:00)
--- NOTE | 2016-12-05 09:06 | IPNPDOC ---
Date Seen The patient was seen on 12/05/16. Progress Note HPI: 31yoF admitted to [facility] for unspecified depressive disorder, being medically examined today. Patient states she is prescribed Suboxone as per Dr. Debby Linares in [facility]. I'm requested to reevaluate the patient today. Patient states she is having constipation. She uses milk of magnesia on December 02 and , she states with no results. She is denying abdominal pain. No nausea, vomiting, or diarrhea. She states she is having some dysuria. No frequency, urgency, or hematuria. She did have a UA completed which was unremarkable. She states she is having some throat irritation with postnasal drip. Some pressure in her ears. Some rhinorrhea which has been clear. Eyes any sinus pressure. No cough. No sputum production. No fevers or chills. Denies any weakness, fatigue, SEGURA, CP, SOB, palpitations, N/V/D. PMHx: Anxiety Depression Bipolar disorder Self-mutilation Substance use Chronic back pain Chronic back pain Chronic shoulder pain Chronic pain Chronic headaches. Follows with neurology at [facility] Chiari malformation. Follows with neurology at [facility] Astigmatism bilateral eyes. Obesity. BMI 33.6 PSHX: Denies PE: GEN: 31 yo F, appears stated age. Well-nourished, well developed. No acute distress. Alert and oriented x 3. Avoids eye contact, reluctant to answer questions. HEENT: Normocephalic, atraumatic. No tenderness with palpation over sinus areas. Pupils are equal, round, and reactive to light. Extraocular movements are intact. No nystagmus appreciated. Sclera are nonicteric. Conjunctiva without injection. Nose midline. Nasal turbinates without bogginess. EACs both patent BL. TMs both visualized and beck with good cone of light, no bulging or erythema. No facial asymmetry. Moist mucous membranes. Dentition poor. Pharynx pink and moist, no exudate. Neck supple, trachea midline. No lymphadenopathy or thyromegaly appreciated. CHEST: Regular rate and rhythm, +S1, +S2 LUNGS: Clear to auscultation bilaterally. No wheezes, rales, or rhonchi. Breathing appears symmetric and easy. Patient is speaking in full sentences. No accessory muscle use. ABD: Round, soft, non-tender, non-distended. +Bowel sounds throughout. No rebound or guarding. No costovertebral angle tenderness. EXT: Pulses 2+ bilaterally dorsalis pedis and radial. No lower extremity edema appreciated. SKIN: [place], dry, warm. Capillary refill <2sec. No rashes. NEURO: No focal deficits appreciated. EKG: Pending. A&P: 31yoF admitted to [facility] for unspecified depressive disorder 1. Psych. Plan per Psychiatry. Obtain baseline EKG to assure the safety of psychiatric medications as they can prolong the QT interval. 2. Nicotine dependence. Patch available. 3. Chronic migraine headache. Continue Topamax 100 mg by mouth daily. Continue outpatient follow-up with neurology at [facility]. 4. Follow up with PCP on discharge. 5. Substance use. Per psychiatry. Suboxone as per Dr Vijay CADRONA. 6. History of IVDU. Patient declines HIV and hepatitis screening. 7. Chronic neck pain/chronic back pain/chronic shoulder pain/chronic pain. Patient states she does not feel she needs to be evaluated by pain management at this time. Continue gabapentin 600 mg by mouth twice a day. Continue naproxen 500 mg by mouth twice a day as needed. Continue outpatient follow-up. 8. Dysuria. Update UA/urine culture. 9. Postnasal drip/nasal congestion. Patient is afebrile. CBC 12/02 with no leukocytosis. Rhinorrhea has been clear. Possible mild viral illness versus allergic rhinitis. Patient is in agreement. Add Zyrtec 10 mg daily. Flonase 2 sprays each nostril daily. Monitor. 10. Constipation. Add Colace 100 mg twice a day as needed, MiraLAX daily as needed. Continue with milk of magnesia daily as needed. Monitor. 11. Staff member Adeline present throughout exam. VS, I&O, 24H, Fishbone Vital Signs/I&O Vital Signs Date Time Temp Pulse Resp B/P (MAP) Pulse Ox O2 Delivery O2 Flow Rate FiO2 12/05/16 08:38 109/56 12/05/16 06:57 98.0 60 16 Room Air 12/01/16 00:50 95 Sherice Stack Dec 05, 2016 09:06
[2016-12-05] MEDS: CETIRIZINE (ZyrTEC) 10 MG TAB PO SCH (09:50)
[2016-12-05] MEDS: FLUTICASONE PROP 0.05% NASAL SPRAY 16 GM (FLONASE) SCH (09:51)
[2016-12-05] MEDS ORDERED: CETI10TA PO (11:44)
[2016-12-05] MEDS ORDERED: GABA-282 PO (11:44)
[2016-12-05] MEDS ORDERED: QUET1TAB8 PO (11:44)
[2016-12-05] MEDS ORDERED: COLA100C5 PO (11:44)
[2016-12-05] MEDS ORDERED: CLONI1TA PO (11:44)
[2016-12-05] MEDS ORDERED: MIRT15TA3 PO (11:44)
[2016-12-05] MEDS ORDERED: TOPA100T12 PO (11:44)
[2016-12-05] MEDS ORDERED: NAPR250T45 PO (11:44)
[2016-12-05] MEDS ORDERED: FLUTISP (11:44)
[2016-12-05] MEDS ORDERED: CELE20TA PO (11:44)
--- NOTE | 2016-12-05 14:02 | MHIPNPDOC ---
[facility] Progress Note Progress Note DATE OF SERVICE: 12/05/16 HISTORY: . Patient is a 31-year-old full female with history of substance abuse, suspected bipolar disorder by history that was readmitted to the unit after reported paranoid delusions and self-harm ideas at home. Patient denied any symptoms of psychosis. No delusions elicited. No ideas of self-harm. Denied any side effects of medications. She has been refusing on-off doses of Seroquel, education was given about benefits from this medication .Reported feeling better and is determined to get the help that she needs for her substance abuse problem at the rehab program that she will go tomorrow. Denied any urinary difficulty today or urinary tract symptoms. VITAL SIGNS: See below. NEW TEST RESULTS: . CURRENT MEDICATIONS: See below. MENTAL STATUS EXAMINATION: General appearance: Patient 31 years old female looks stated age with fair grooming and hygiene, cooperative Speech: . Fluent and coherent Thought processes: . Linear and goal directed Thought content: . No suicidal or homicidal ideas. No delusions elicited. No perceptual disturbances Abstract reasoning and computation: . Intact Description of associations: . Adequate Description of abnormal or psychotic thoughts: . No psychosis Judgment: . Limited Insight: . Limited Orientation: . Oriented 3 Recent and remote memory: . Intact Attention span and concentration: . Adequate Fund of knowledge: . Average Mood: "okay." Affect: full range DIAGNOSES: 1. . Substance-induced psychosis versus substance-induced mood disorder 2. . 3. . ASSESSMENT: 31-year-old female was admitted due to paranoid delusions and self-harm ideas clearly doing better. No symptoms of psychosis. No mood symptoms or self-harm ideas. Patient scheduled to be discharged to rehab on 12/06 in am. MANAGEMENT PLAN: . Continue current medications including titration of Seroquel to therapeutic doses Discharge plan TIME SPENT: 25 minutes. Vital Signs Vital Signs Date Time Temp Pulse Resp B/P (MAP) Pulse Ox O2 Delivery O2 Flow Rate FiO2 12/05/16 08:38 109/56 12/05/16 06:57 98.0 60 16 Room Air 12/01/16 00:50 95 Laboratory Data 24H Labs Laboratory Tests 2 12/05/16 10:30: Urine Appearance CLEAR, Urine Color STRAW, Urine pH 7.0, Urine Specific [place] 1.002, Urine Protein NEGATIVE, Urine Glucose (UA) NEGATIVE, Urine Ketones NEGATIVE, Urine Urobilinogen 0.2, Urine Bilirubin NEGATIVE, Urine Leukocyte Esterase NEGATIVE, Urine Blood NEGATIVE, Urine Nitrite NEGATIVE, Urine WBC (Auto ) 1, Urine RBC (Auto) 1, Urine Hyaline Casts (Auto) 0, Urine Bacteria (Auto) 1+H , Urine Squamous Epithelial Cells 0, Urine Sperm (Auto) Current Medications Current Medications Acetaminophen (Tylenol Tab) 650 mg Q6HP PRN PO HEADACHE or DISCOMFORT Last administered on 12/03/16 13:43; Start 11/30/16 at 21:15; Stop 12/30/16 at 21:14 Al Hydrox/Mg Hydrox/Simethicone (Mylanta) 30 ml Q4HP PRN PO HEARTBURN/ INDIGESTION; Start 11/30/16 at 21:15; Stop 12/30/16 at 21:14 Buprenorphine/ Naloxone (Suboxone 8/2mg) 1 tab DAILY SL Last administered on 08:39; Start 12/01/16 at 09:00; Stop 12/08/16 at 08:59 Cetirizine HCl (ZyrTEC) 10 mg DAILY PO Last administered on 12/05/16 09:50; Start 12/05/16 at 09:00; Stop 01/04/17 at 08:59 Citalopram Hydrobromide (CeleXA) 40 mg DAILY PO Last administered on 08:38; Start 12/01/16 at 09:00; Stop 12/31/16 at 08:59 Clonidine HCl (Catapres) 0.1 mg BID PO Last administered on 12/05/16 08:38; Start 11/30/16 at 21:00; Stop 12/30/16 at 20:59 Docusate Sodium (Colace) 100 mg BIDP PRN PO CONSTIPATION; Start 12/05/16 at 09 :00; Stop 01/04/17 at 08:59 Fluticasone Propionate (Flonase 0.05% Nasal [place]) 2 spray DAILY NA Last administered on 12/05/16 09:51; Start 12/05/16 at 09:00; Stop 01/04/17 at 08: 59 Gabapentin (Neurontin) 600 mg BID PO Last administered on 12/05/16 08:39; Start 11/30/16 at 21:00; Stop 12/30/16 at 20:59 Home Med (Med Rec Complete!) ASDIRECTED XX ; Start 11/30/16 at 21:30; Stop 11/30/16 at 21:33; Status DC Magnesium Hydroxide (Milk Of Magnesia) 30 ml DAILYPRN PRN PO CONSTIPATION Last administered on 12/05/16 08:37; Start 11/30/16 at 21:15; Stop 12/30/16 at 21: 14 Mirtazapine (Remeron) 30 mg QHS PO Last administered on 12/04/16 20:17; Start 12/01/16 at 21:00; Stop 12/31/16 at 20:59 Naproxen (Naprosyn) 500 mg BIDP PRN PO PAIN Last administered on 12/05/16 08: 39; Start 11/30/16 at 22:00; Stop 12/30/16 at 21:59 Polyethylene Glycol (Miralax) 1 pkt DAILYPRN PRN PO CONSTIPATION; Start at 09:00; Stop 01/04/17 at 08:59 Quetiapine Fumarate (SEROquel) 50 mg QAM PO Last administered on 12/02/16 08: 46; Start 12/01/16 at 09:00; Stop 12/02/16 at 13:38; Status DC Quetiapine Fumarate (SEROquel) 100 mg QHS PO Last administered on 12/01/16 20: 28; Start 12/01/16 at 21:00; Stop 12/02/16 at 13:38; Status DC Quetiapine Fumarate (SEROquel) 200 mg QHS PO ; Start 12/02/16 at 21:00; Stop at 16:01; Status DC Quetiapine Fumarate (SEROquel) 250 mg QHS PO Last administered on 12/03/16 21: 04; Start 12/03/16 at 21:00; Stop 01/02/17 at 20:59 Topiramate (TopAMAX) 100 mg DAILY PO Last administered on 12/05/16 08:38; Start 12/01/16 at 09:00; Stop 12/31/16 at 08:59 Trazodone HCl (Desyrel) 50 mg QHSP PRN PO INSOMNIA; Start 11/30/16 at 21:15; Stop 11/30/16 at 22:11; Status DC Allergies Coded Allergies: Codeine (Unverified Allergy, Intermediate, swelling, 11/05/14) LISSETTE HUTCHINSON MD Dec 05, 2016 14:02
--- NOTE | 2016-12-05 14:16 | MHDSPDOC ---
[facility] Discharge Summary Discharge Summary DATE OF ADMISSION: Nov 30, 2016 at 21:09 DATE OF DISCHARGE: November AT 7:00 DISCHARGE DIAGNOSES: 1. . 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 . REASON FOR ADMISSION: Worsening paranoid delusions, ideas of self-harm danger to others at home HISTORY OF THE PRESENT ILLNESS: Patient is a 31-year-old female, who was discharged last week from the unit after being admitted inpatient for about 2 weeks. Patient went home and according to the mother started to elicit paranoid delusions, ideas of self-harm with plans to overdose on pills. Mother is concerned as patient has a daughter living with her home and she has been paranoid with the daughter telling her that she will hurt herself. Mother doesn' t feel safe with her at home. Mother thinks that if she is going out of the house by herself, She will hurt herself or hurt other people as she is paranoid. On interview yesterday morning in the E.D she did not elicit any delusions, denied any symptoms of psychosis or ideas of self-harm. Patient then went home and began with the described behaviors and was brought to ED then admitted. Patient has been isolated mostly in bed. Reports that she is tired, denied any symptoms of psychosis, denied making any statements of self harm. Denied had any paranoid ideas. Patient was taken the medications after discharge as prescribed. She is scheduled to go to inpatient rehabilitation program next Sunday. Patient was started on the medications that she had on discharge and was started on Seroquel 150 mg daily to be titrated to therapeutic doses. Patient denied smoking or using any other drugs after discharged. Urine toxicology is negative CONSULTANTS INVOLVED: none TREATMENT AND PROGRESS ON THE UNIT : . She was readmitted to the unit after being at home for 2 days after discharged, according to the mother, she was getting worsening paranoid ideas and having suicidal ideas with a plan to overdose on her pills. She was not sleeping, she was locking herself in the home as she was feeling that someone wanted to hurt her. Patient denied using any drugs after she was discharged from the hospital. She was seen the morning of admission in the emergency room and discharged as she was not psychotic. During the unit stay this time, she was isolated at the beginning and doesn't depressed mood, but denying any suicidal ideas or any symptoms of psychosis. She was restarted in Seroquel for mood stabilization and for symptoms of psychosis and was titrated up to 250 mg daily at bedtime. However, she lost not compliance several times with the medications as reported that she was tired and that the Seroquel will make her more tired and sleepy. She reported feeling at her baseline and ready to be discharged to her 28 days rehabilitation program in [facility] COURSE: DISCHARGE ASSESSMENT: Patient is a 31-year-old full female with history of substance abuse, suspected bipolar disorder by history that was readmitted to the unit after reported paranoid delusions and self-harm ideas at home. Patient denied any symptoms of psychosis. No delusions elicited. No ideas of self-harm. Denied any side effects of medications. Will continue her home medications and seroquel was started for mood stabilization and symptoms of psychosis.Patient will continue follow up at a rehab/[facility] program in [place]. MENTAL STATUS EXAMINATION ON DISCHARGE: General appearance: Patient 31 years old female looks stated age with fair grooming and hygiene, cooperative Speech: . Fluent and coherent Thought processes: . Linear and goal directed Thought content: . No suicidal or homicidal ideas. No delusions elicited. No perceptual disturbances Abstract reasoning and computation: . Intact Description of associations: . Adequate Description of abnormal or psychotic thoughts: . No psychosis Judgment: . Limited Insight: . Limited Orientation: . Oriented 3 Recent and remote memory: . Intact Attention span and concentration: . Adequate Fund of knowledge: . Average Mood: "okay." Affect: Constricted. MEDICATIONS ON DISCHARGE: Buprenorphine/ Naloxone (Suboxone 8/2mg) 1 tab DAILY SL Cetirizine HCl (ZyrTEC) 10 mg DAILY PO Citalopram Hydrobromide (CeleXA) 40 mg DAILY PO Clonidine HCl (Catapres) 0.1 mg BID PO Fluticasone Propionate (Flonase 0.05% Nasal [place]) 2 spray DAILY NA Gabapentin (Neurontin) 600 mg BID PO Mirtazapine (Remeron) 30 mg QHS PO Quetiapine Fumarate (SEROquel) 50 mg QAM PO Quetiapine Fumarate (SEROquel) 100 mg QHS PO Quetiapine Fumarate (SEROquel) 200 mg QHS PO ; Quetiapine Fumarate (SEROquel) 250 mg QHS PO Topiramate (TopAMAX) 100 mg DAILY PO Trazodone HCl (Desyrel) 50 mg QHSP PRN PO INSOMNIA; PLAN/FOLLOWUP ARRANGEMENTS: . Patient will be discharged to a substance rehabilitation program tomorrow morning, December 06. In [place], [place] The amount of time spent in the coordination of care for this patient was approximately 30 minutes. Vital Signs/I&Os Vital Signs Date Time Temp Pulse Resp B/P (MAP) Pulse Ox O2 Delivery O2 Flow Rate FiO2 12/05/16 08:38 109/56 12/05/16 06:57 98.0 60 16 Room Air 12/01/16 00:50 95 Laboratory Data Labs 24H Laboratory Tests 2 12/05/16 10:30: Urine Appearance CLEAR, Urine Color STRAW, Urine pH 7.0, Urine Specific [place] 1.002, Urine Protein NEGATIVE, Urine Glucose (UA) NEGATIVE, Urine Ketones NEGATIVE, Urine Urobilinogen 0.2, Urine Bilirubin NEGATIVE, Urine Leukocyte Esterase NEGATIVE, Urine Blood NEGATIVE, Urine Nitrite NEGATIVE, Urine WBC (Auto ) 1, Urine RBC (Auto) 1, Urine Hyaline Casts (Auto) 0, Urine Bacteria (Auto) 1+H , Urine Squamous Epithelial Cells 0, Urine Sperm (Auto) Microbiology Microbiology 12/05/16 Urine Culture, Received Pending Medications Scheduled Buprenorphine/Naloxone (Suboxone 8-2 mg) 1 Mis Mis, 1 MIS SL DAILY, (Reported) Cetirizine HCl (Cetirizine HCl) 10 Mg Tab, 10 MG PO DAILY for alergies, #14 Citalopram Hydrobromide (Celexa) 40 Mg Tab, 40 MG PO DAILY, (Reported) Citalopram Hydrobromide (Celexa) 20 Mg Tab, 40 MG PO DAILY for DEPRESSION, #14 Clonidine Hcl (Catapres) 0.1 Mg Tab, 0.1 MG PO BID for hypertension, #14 Clonidine Hydrochloride (Clonidine HCl) 0.1 Mg Tab, 0.1 MG PO BID, (Reported) Fluticasone Propionate (Fluticasone Propionate) 50 Mcg/Act Spr, 2 SPRAY NA DAILY for asthma, #1 Gabapentin (Gabapentin) 600 Mg Tab, 600 MG PO BID, (Reported) Gabapentin (Gabapentin) 300 Mg Cap, 600 MG PO BID for anxiety, neuropathy, #20 Mirtazapine (Mirtazapine) 15 Mg Tab, 30 MG PO QHS for DEPRESSION, #14 Quetiapine Fumerate (Quetiapine Fumarate) 100 Mg Tab, 250 MG PO QHS for MOOD, # 20 Topiramate (Topiramate) 100 Mg Tab, 100 MG PO DAILY, (Reported) Topiramate (Topamax) 100 Mg Tab, 100 MG PO DAILY for bipolar disorder, #14 Scheduled PRN Docusate Sodium (Colace) 100 Mg Cap, 100 MG PO BIDP PRN for CONSTIPATION, #28 Mirtazapine (Mirtazapine) 30 Mg Tab, 30 MG PO QHS PRN for SLEEP, (Reported) Naproxen (Naproxen Dr) 500 Mg Tab, 500 MG PO BID PRN for PAIN, (Reported) Naproxen (Naprosyn) 250 Mg Tab, 500 MG PO BIDP PRN for PAIN, #20 Trazodone HCl (Trazodone HCl) 50 Mg Tab, 50 MG PO QHS PRN for INSOMNIA, ( Reported) Allergies Coded Allergies: Codeine (Unverified Allergy, Intermediate, swelling, 11/05/14) LISSETTE HUTCHINSON MD Dec 05, 2016 11:46
--- NOTE | 2016-12-05 17:06 | ECGEPIP ---
Stationary ECG Study [facility] Test Date: 2016-12-05 Pat Name: ARPITA ALBRIGHT Department: Room: [place] [address] Gender: F [employer]er [employer] Photo Inspector: : 1985 Requested By: Sherice Stack Order Number: [id number] Reading MD: Hallie Lawson Measurements Intervals [place] Rate: 62 P: 42 PA: 187 QRS: 48 QRSD: 90 T: 17 QT: 405 QTc: 413 Interpretive Statements SINUS RHYTHM NORMAL STABLE C/W 11/30/16 Electronically Signed On 12-05-2016 17:06:25 EDT by Hallie Lawson
[2016-12-05 18:00] VITALS: BP 107/59
[2016-12-05] MEDS: MIRTAZAPINE 15 MG TAB PO SCH (20:48)
[2016-12-05] MEDS: QUEtiapine FUMARATE 100 MG TAB PO SCH (20:49)
[2016-12-06 06:00] VITALS: BP 122/83
[2016-12-06 08:06] VITALS: BP 122/83
[2016-12-06] MEDS: FLUTICASONE PROP 0.05% NASAL SPRAY 16 GM (FLONASE) SCH (08:06)
[2016-12-06] MEDS: CETIRIZINE (ZyrTEC) 10 MG TAB PO SCH (08:06)
[2016-12-06] MEDS: TOPIRAMATE (TopAMAX) 100 MG TAB PO SCH (08:06)
[2016-12-06] MEDS: GABAPENTIN 300 MG CAP PO SCH (08:06)
[2016-12-06] MEDS: cloNIDine 0.1 MG TAB PO SCH (08:06)
[2016-12-06] MEDS: CitaloPRAM (CeleXA) 20 MG TAB PO SCH (08:06)
[2016-12-06] MEDS: BUPRENORPHINE/NALOXONE 8-2MG SUBLINGUAL TABLET(SUBOXONE) SL SCH (08:07)
== END 2016-12-06 08:45 | DRG 776 ==
LOC: M ED 18:42 → M ED INP 21:09 → M PSY 12-01 00:56
PROVIDERS: ADMIT Psychiatry & Neurology Psychiatry; ATTEND Psychiatry & Neurology Psychiatry
DX: F19.94 Other psychoactive substance use, unspecified with psychoactive substance-induced mood disorder (principal); F31.9 Bipolar disorder, unspecified; F15.10 Other stimulant abuse, uncomplicated; Z79.899 Other long term (current) drug therapy; Z88.5 Allergy status to narcotic agent; E66.9 Obesity, unspecified; M54.5 Low back pain; G89.29 Other chronic pain; Z68.33 Body mass index [BMI] 33.0-33.9, adult; G93.5 Compression of brain; H52.203 Unspecified astigmatism, bilateral; F17.200 Nicotine dependence, unspecified, uncomplicated; G43.909 Migraine, unspecified, not intractable, without status migrainosus; M54.2 Cervicalgia; D72.829 Elevated white blood cell count, unspecified; K59.00 Constipation, unspecified

== ENCOUNTER 2017-01-27 18:37 | Inpatient (IN) | payer OTHER ==
[~2017-01-27] VITALS: Ht 170.2 cm; Wt 104.0 kg
[~2017-01-27 18:37] MED LIST changes: +CELE40TA PO; +CETI10TA PO; +CLONI1TA PO; +COLA100C5 PO; +FLUTISP; +GABA-282 PO; +MIRT15TA3 PO; +MIRT30TA3 PO; +NAPR250T45 PO; +QUET1TAB8 PO; +TRAZ50TA11 PO
[2017-01-27] MEDS ORDERED: LORazepam 1 MG TAB PO STA (19:48)
[2017-01-27 20:11] LABS: MEAN CORPUSCULAR HEMOGLOBIN 27.5 pg (27.0-33.0); MEAN CORPUSCULAR HGB CONC 33.1 g/dl (32.0-36.5); MEAN CORPUSCULAR VOLUME 83.2 fl (80.0-96.0); PLATELET COUNT, AUTOMATED 317 10^3/uL (150-450); RED CELL DISTRIBUTION WIDTH 13.5 % (11.5-14.5); WHITE BLOOD COUNT 12.2 10^3/uL (4.0-10.0)
[2017-01-27 20:29] LABS: CONTROL LINE HCG INT CTR LINE PRESENT
[2017-01-27 20:50] LABS: ALKALINE PHOSPHATASE 68 U/L (45-117); ALT/SGPT 28 U/L (12-78); ANION GAP 9 MEQ/L (8-16); AST/SGOT 39 U/L (7-37); BILIRUBIN,DIRECT 0.2 MG/DL (0.0-0.2); BILIRUBIN,TOTAL 0.6 MG/DL (0.2-1.0); BLOOD UREA NITROGEN 13 MG/DL (7-18); CARBON DIOXIDE LEVEL 24 MEQ/L (21-32); CHLORIDE LEVEL 105 MEQ/L (98-107); CREATININE FOR GFR 0.79 MG/DL (0.55-1.02); GLOMERULAR FILTRATION RATE > 60.0 (>60); GLUCOSE, FASTING 93 MG/DL (70-105); POTASSIUM SERUM 3.8 MEQ/L (3.5-5.1); SODIUM LEVEL 138 MEQ/L (136-145)
[2017-01-27] MEDS ORDERED: TRAZ50TA11 PO (20:56)
[2017-01-27] MEDS ORDERED: TOPI50TA9 PO (20:56)
[2017-01-27] MEDS ORDERED: GABA-283 PO (20:56)
[2017-01-27] MEDS ORDERED: NAPR375T4 PO (20:56)
[2017-01-27] MEDS ORDERED: SERO1TAB2 PO (20:56)
[2017-01-27] MEDS ORDERED: CITA40TA4 PO (20:56)
[2017-01-27] MEDS ORDERED: STOO100C PO (20:56)
[2017-01-27] MEDS ORDERED: HYDR1CAP25 PO (20:56)
[2017-01-27] MEDS ORDERED: CETI10TA PO (20:56)
[2017-01-27] MEDS ORDERED: CLON-412 PO (20:56)
[2017-01-27 22:16] LABS: METHADONE URINE NEGATIVE (NEGATIVE)
[2017-01-27] MEDS ORDERED: METOPROLOL SUCC *XL* 25MG TAB (TopROL *XL*) PO ONE (22:45)
[2017-01-28] MEDS ORDERED: MOM 30ML SUSPENSION UDC PO PRN (01:15)
[2017-01-28] MEDS ORDERED: DOCUSATE SODIUM 100 MG CAP PO PRN (01:15)
[2017-01-28] MEDS ORDERED: MAALOX 30 ML SUSP *UDC PO PRN (01:15)
[2017-01-28] MEDS ORDERED: NAPROXEN 250 MG TAB PO PRN (01:15)
[2017-01-28 06:44] VITALS: BP 115/63
[2017-01-28] MEDS: TOPIRAMATE (TopAMAX) 25 MG TAB PO SCH (09:17)
[2017-01-28] MEDS: GABAPENTIN 400 MG CAP PO SCH (09:17)
[2017-01-28] MEDS: CitaloPRAM (CeleXA) 20 MG TAB PO SCH (09:17)
[2017-01-28] MEDS: cloNIDine 0.1 MG TAB PO SCH ×2 (09:18→21:51)
[2017-01-28] MEDS: NICOTINE 21MG/24HR 1 EA TRANSDERMAL TD SCH (09:18)
[2017-01-28] MEDS: CETIRIZINE (ZyrTEC) 10 MG TAB PO SCH (09:18)
[2017-01-28] MEDS: OLANZapine ORAL DISINTEGRATING TAB 5MG PO PRN (09:50)
[2017-01-28] MEDS: BUPRENORPHINE/NALOXONE 8-2MG SUBLINGUAL TABLET(SUBOXONE) SL SCH (09:50)
[2017-01-28 12:00] VITALS: BP 132/76
[2017-01-28 18:00] VITALS: BP 129/73
[2017-01-28] MEDS ORDERED: QUEtiapine FUMARATE 100 MG TAB PO SCH (21:00)
[2017-01-29 07:00] VITALS: BP 90/48
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
[2017-01-29 08:22] LABS: THYROXINE (T4) 12.1 UG/DL (4.5-12.0)
[2017-01-29] MEDS ORDERED: INFLUENZA QUADRIVALENT PF VACCINE 0.5ML SYRINGE (90686) IM ONE (09:00)
[2017-01-29] MEDS: cloNIDine 0.1 MG TAB PO SCH ×2 (09:12→22:10)
[2017-01-29] MEDS: GABAPENTIN 400 MG CAP PO SCH (09:12)
[2017-01-29] MEDS: CitaloPRAM (CeleXA) 20 MG TAB PO SCH (09:12)
[2017-01-29] MEDS: BUPRENORPHINE/NALOXONE 8-2MG SUBLINGUAL TABLET(SUBOXONE) SL SCH (09:12)
[2017-01-29] MEDS: TOPIRAMATE (TopAMAX) 25 MG TAB PO SCH (09:12)
[2017-01-29] MEDS: CETIRIZINE (ZyrTEC) 10 MG TAB PO SCH (09:13)
[2017-01-29] MEDS: NICOTINE 21MG/24HR 1 EA TRANSDERMAL TD SCH (09:14)
[2017-01-29 18:00] VITALS: BP 115/57
--- NOTE | 2017-01-29 18:06 | MHIPNPDOC ---
[facility] Progress Note Progress Note DATE OF SERVICE: 01/29/17 HISTORY: According to Dr. Medina's progress note: "Has a history of bipolar disorder, and has been misusing methamphetamines. She was in rehabilitation in [facility], just completed a 30-day stay, and this is per the patient and the emergency room (ER) records. She was discharged in the last week or so, and has relapsed using methamphetamines." The patient says she has been taking Suboxone for 2 years. she relapsed on methamphetamines because she had relationship problems VITAL SIGNS: See below. NEW TEST RESULTS: 24H Labs Laboratory Tests 2 01/29/17 07:15: Thyroid Stimulating Hormone (TSH) 2.280, Free Thyroxine Index 3.6, Thyroxine (T4 ) 12.1H, Triiodothyronine (T3) Uptake 30, HIV Antigen/Antibody Combo Qual NEGATIVE CURRENT MEDICATIONS: See below. MENTAL STATUS EXAMINATION: Patient is a 31-year old female, who is alert, cooperative, dressed in hospital clothes, . Speech: Coherent. Language skills are fair Thought processes including: Intact Thought content: Anxious about finding an apartment, finding a job, about her children Abstract reasoning, and computation: Not assessed at this time Description of associations: Good Description of abnormal or psychotic thoughts: Denies A/V hallucinations, feels a little bit paranoid, denies SI/HI Judgment: Poor Insight: Poor Orientation: oriented x 3 Recent and remote memory: Intact Attention span and concentration: Easily distractible Language: Fair Fund of knowledge: Limited. Mood: "I feel anxious" Affect: irritable/constricted DIAGNOSES: 1. Schizoaffective disorder 2. Borderline Personality disorder ASSESSMENT: Patient is very sedated, she received suboxone and Seroquel 300 mgs. last night. suboxone has been changed to Suboxone 2/0.5 mgs sublingual BID. Patient is irritable due to high anxiety levels and she is sleepy. she can t provide much information right now. MANAGEMENT PLAN: continue with the same medications TIME SPENT: 20 minutes. Vital Signs Vital Signs Date Time Temp Pulse Resp B/P (MAP) Pulse Ox O2 Delivery O2 Flow Rate FiO2 01/29/17 10:37 Room Air 01/29/17 09:12 122/64 01/29/17 07:00 98.5 69 14 01/27/17 23:23 98 Laboratory Data 24H Labs Laboratory Tests 2 01/29/17 07:15: Thyroid Stimulating Hormone (TSH) 2.280, Free Thyroxine Index 3.6, Thyroxine (T4 ) 12.1H, Triiodothyronine (T3) Uptake 30, HIV Antigen/Antibody Combo Qual NEGATIVE Current Medications Current Medications Al Hydrox/Mg Hydrox/Simethicone (Mylanta) 30 ml Q4HP PRN PO HEARTBURN/ INDIGESTION; Start 01/28/17 at 01:15; Stop 02/27/17 at 01:14 Buprenorphine/ Naloxone (Suboxone 2/ 0.5mg) 1 tab BID SL ; Start 01/29/17 at 21: 00; Stop 02/05/17 at 20:59 Buprenorphine/ Naloxone (Suboxone 8/2mg) 1 tab DAILY SL Last administered on 09:12; Start 01/28/17 at 09:00; Stop 01/29/17 at 13:34; Status DC Cetirizine HCl (ZyrTEC) 10 mg DAILY PO Last administered on 01/29/17 09:13; Start 01/28/17 at 09:00; Stop 02/27/17 at 08:59 Citalopram Hydrobromide (CeleXA) 40 mg DAILY PO Last administered on 01/29/17 09:12; Start 01/28/17 at 09:00; Stop 02/27/17 at 08:59 Clonidine HCl (Catapres) 0.1 mg BID PO Last administered on 01/29/17 09:12; Start 01/28/17 at 09:00; Stop 02/27/17 at 08:59 Docusate Sodium (Colace) 100 mg BID PRN PO CONSTIPATION; Start 01/28/17 at 01: 15; Stop 02/27/17 at 01:14 Gabapentin (Neurontin) 400 mg DAILY PO Last administered on 01/29/17 09:12; Start 01/28/17 at 09:00; Stop 02/27/17 at 08:59 Home Med (Med Rec Complete!) ASDIRECTED XX ; Start 01/27/17 at 21:00; Stop 01/27/17 at 21:04; Status DC Lorazepam (Ativan) 1 mg STAT STAT PO Last administered on 01/27/17 19:53; Start 01/27/17 at 19:48; Stop 01/27/17 at 19:49; Status DC Magnesium Hydroxide (Milk Of Magnesia) 30 ml DAILYPRN PRN PO CONSTIPATION; Start 01/28/17 at 01:15; Stop 02/27/17 at 01:14 Naproxen (Naprosyn) 375 mg BIDP PRN PO PAIN OR DISCOMFORT; Start 01/28/17 at 01 :15; Stop 02/27/17 at 01:14 Nicotine (Nicoderm Cq 21mg) 1 patch DAILY TD Last administered on 01/29/17 09: 14; Start 01/28/17 at 09:00; Stop 02/27/17 at 08:59 Olanzapine (ZyPREXA ZYDIS) 5 mg Q4HP PRN PO ANXIETY/AGITATION Last administered on 01/28/17 09:50; Start 01/28/17 at 01:15; Stop 02/27/17 at 01:14 Quetiapine Fumarate (SEROquel) 150 mg QHS PO ; Start 01/29/17 at 21:00; Stop 02/28/17 at 20:59 Quetiapine Fumarate (SEROquel) 300 mg QHS PO Last administered on 01/28/17 21: 51; Start 01/28/17 at 21:00; Stop 01/29/17 at 13:32; Status DC Topiramate (TopAMAX) 50 mg DAILY PO Last administered on 01/29/17 09:12; Start 01/28/17 at 09:00; Stop 02/27/17 at 08:59 Trazodone HCl (Desyrel) 50 mg QHS PRN PO INSOMNIA; Start 01/28/17 at 01:15; Stop 02/27/17 at 01:14 Allergies Coded Allergies: Codeine (Unverified Allergy, Intermediate, swelling, 11/05/14) LAYNE RODRIGUES MD Jan 29, 2017 18:06
[2017-01-29] MEDS: QUEtiapine FUMARATE 50 MG TAB PO SCH (22:09)
[2017-01-29] MEDS: BUPRENORPHINE/NALOXONE 2-0.5MG SUBLINGUAL TABLET(SUBOXONE) SL SCH (22:09)
[2017-01-30 07:00] VITALS: BP 103/56
[2017-01-30 07:26] LABS: BASO % 0.3 % (0.0-1.0); EOS # 0.2 10^3/uL (0.0-0.50); EOS % 3.1 % (0.0-3.0); IMMATURE GRANULOCYTE % 0.3 % (0-0); LYMPH % 41.5 % (24.0-44.0); MEAN CORPUSCULAR HEMOGLOBIN 27.8 pg (27.0-33.0); MEAN CORPUSCULAR HGB CONC 32.3 g/dl (32.0-36.5); MEAN CORPUSCULAR VOLUME 86.2 fl (80.0-96.0); MONO # 0.5 10^3/uL (0.0-0.8); NEUTROPHILS # 3.5 10^3/uL (1.8-7.7); NEUTROPHILS % 47.8 % (36.0-66.0); PLATELET COUNT, AUTOMATED 260 10^3/uL (150-450); RED CELL DISTRIBUTION WIDTH 13.6 % (11.5-14.5); WHITE BLOOD COUNT 7.3 10^3/uL (4.0-10.0)
[2017-01-30 07:53] LABS: ALBUMIN 3.1 GM/DL (3.2-5.2); ALBUMIN/GLOBULIN RATIO 0.86 (1.00-1.93); ALKALINE PHOSPHATASE 60 U/L (45-117); ALT/SGPT 21 U/L (12-78); ANION GAP 8 MEQ/L (8-16); AST/SGOT 14 U/L (7-37); BILIRUBIN,TOTAL 0.1 MG/DL (0.2-1.0); BLOOD UREA NITROGEN 10 MG/DL (7-18); CALCIUM LEVEL 8.4 MG/DL (8.5-10.1); CARBON DIOXIDE LEVEL 26 MEQ/L (21-32); CHLORIDE LEVEL 109 MEQ/L (98-107); CREATININE FOR GFR 0.73 MG/DL (0.55-1.02); GLOMERULAR FILTRATION RATE > 60.0 (>60); GLUCOSE, FASTING 92 MG/DL (70-105); POTASSIUM SERUM 4.4 MEQ/L (3.5-5.1); SODIUM LEVEL 143 MEQ/L (136-145); TOTAL PROTEIN 6.7 GM/DL (6.4-8.2)
--- NOTE | 2017-01-30 08:13 | HPE ---
DATE OF ADMISSION: 01/27/2017 HISTORY OF THE PRESENT ILLNESS: Please refer to psychiatric history and evaluation for further details on this admission. This examination and history is intended for medical issues, which may need treatment, follow-up or consult on this 31-year-old female. ALLERGIES: 1. CODEINE. SOCIAL HISTORY: She is . She lives in [place]. She smokes half a pack of cigarettes per day. ETOH none. PRIMARY CARE PROVIDER: Dr. Brown. She has a history of opiate abuse, she takes Suboxone. She follows with Dr. Debby Linares in [place]. PAST MEDICAL HISTORY: Anxiety. Depression. Bipolar disorder. Self mutilation. Substance abuse. Chronic back pain. Chronic shoulder pain. Chronic headaches. Follows with neurology at [facility]. Chiari malformation. Follows with neurology at [facility]. Astigmatism bilateral eyes. Obesity. PAST SURGICAL HISTORY: Negative. FAMILY HISTORY: Noncontributory. REVIEW OF SYSTEMS: 10-systems review was done and other than chronic back pain and headaches, the patient states she would like HIV testing. She states her was unfaithful to her. HIV testing will be ordered. She would like a OCCASIONAL BABYSITTER consult to check for sexually transmitted diseases. No complaints of any vaginal irritation or discharge. LABORATORY STUDIES: WBC 12, hemoglobin and hematocrit 13.1 and 39.6, platelet count 317. Electrolytes were normal. BUN 13, creatinine 0.79, AST 39, ALT 28, TSH 5.27. Toxicology showed positive for amphetamines. HOME MEDICATIONS: - gabapentin 400 mg by mouth three times a day - hydroxyzine 25 mg by mouth three times a day as needed anxiety - Seroquel 600 mg by mouth at bedtime - naproxen 375 mg by mouth twice a day as needed for pain PHYSICAL EXAMINATION: GENERAL: 31-year-old female in no acute distress. Height 67 inches, weight 97.3 kg, BMI 33.6, blood pressure 132/76, pulse 90, respirations 16, temperature 98. The patient is alert and oriented times three. HEENT: Pupils equal and react to light. EOM's are intact. Cornea and sclerae are clear. Conjunctivae are normal. No facial asymmetry. Pharynx, tongue and gums are pink and moist. Tongue is midline. NECK: Supple without lymphadenopathy. No thyromegaly. No goiter. Carotids 2+ without bruit. CHEST: Clear to auscultation without wheeze or retraction. HEART: Regular. ABDOMEN: Benign. Bowel sounds are positive. /RECTAL: Not done. EXTREMITIES: Show equal strength. Full [id number]. No cyanosis, clubbing or edema. Superficial laceration left forearm, self inflicted. No redness or drainage, is scabbed. Peripheral pulses are equal and palpable bilaterally. SKIN: Warm and dry. IMPRESSION/PLAN: 1. Psychiatric plan per psychiatry. 2. HIV testing ordered. Patient requesting OCCASIONAL BABYSITTER consult, is asymptomatic. Recommended she follow for testing. [facility], which is where she goes for her gynecologic care. 3. Chronic migraines headaches. Continue outpatient followup with neurology at [facility]. 4. Substance abuse use. Followup with Dr. Linares in [place]. 5. Leukocytosis. Will recheck CBC. 6. Slightly elevated liver enzyme. Will recheck in the morning. 7. Slightly elevated TSH. Will order thyroid profile.
[2017-01-30] MEDS: CitaloPRAM (CeleXA) 20 MG TAB PO SCH (09:37)
[2017-01-30] MEDS: GABAPENTIN 400 MG CAP PO SCH (09:37)
[2017-01-30] MEDS: TOPIRAMATE (TopAMAX) 25 MG TAB PO SCH (09:37)
[2017-01-30] MEDS: cloNIDine 0.1 MG TAB PO SCH ×2 (09:37→20:41)
[2017-01-30] MEDS: BUPRENORPHINE/NALOXONE 2-0.5MG SUBLINGUAL TABLET(SUBOXONE) SL SCH ×2 (09:37→20:39)
[2017-01-30] MEDS: CETIRIZINE (ZyrTEC) 10 MG TAB PO SCH (09:37)
[2017-01-30] MEDS: NICOTINE 21MG/24HR 1 EA TRANSDERMAL TD SCH (09:38)
--- NOTE | 2017-01-30 11:37 | MHIPNPDOC ---
[facility] Progress Note Progress Note DATE OF SERVICE: 01/30/17 HISTORY: According to Dr. Medina's progress note: "Has a history of bipolar disorder, and has been misusing methamphetamines. She was in rehabilitation in [facility], just completed a 30-day stay, and this is per the patient and the emergency room (ER) records. She was discharged in the last week or so, and has relapsed using methamphetamines." The patient says she has been taking Suboxone for 2 years. she relapsed on methamphetamines because she had relationship problems VITAL SIGNS: See below. NEW TEST RESULTS: [facility] Laboratory Tests 2 01/29/17 07:15: Thyroid Stimulating Hormone (TSH) 2.280, Free Thyroxine Index 3.6, Thyroxine (T4 ) 12.1H, Triiodothyronine (T3) Uptake 30, HIV Antigen/Antibody Combo Qual NEGATIVE CURRENT MEDICATIONS: See below. MENTAL STATUS EXAMINATION: Patient is a 31-year old female, who is alert, mildly uncooperative, dressed in hospital clothes,guarded. Speech: Sparse but normal in rate, tone and volume Language skills are fair Thought processes including: Intact Thought content: Anxious about finding an apartment, finding a job, about her children Abstract reasoning, and computation: Fair Description of associations: Normal Description of abnormal or psychotic thoughts: Denies A/V hallucinations, feels a little bit paranoid, denies SI/HI Judgment: Poor Insight: Poor Orientation: oriented x 3 Recent and remote memory: Fair Attention span and concentration: Easily distractible Language: Fair Fund of knowledge: Limited. Mood: "I continue to feel anxious" Affect: irritable/constricted DIAGNOSES: 1. Schizoaffective disorder 2. Borderline Personality disorder ASSESSMENT: The patient had no complaints, she continues to feel sleepy, she says this dose of Suboxone is holding her well, she thinks that Seroquel 150 mgs PO QHS is good enough. She says that she is sleeping well, she feels less anxious and less depressed, her appetite is good but she still has low energy levels, which could be secondary to Suboxone. MANAGEMENT PLAN: Continue with the same medications T Vital Signs Vital Signs Date Time Temp Pulse Resp B/P (MAP) Pulse Ox O2 Delivery O2 Flow Rate FiO2 01/30/17 09:37 116/56 01/30/17 09:24 Room Air 01/30/17 07:00 97.9 58 16 01/27/17 23:23 98 Laboratory Data [facility] Laboratory Tests 2 01/30/17 07:12: Immature Granulocyte % (Auto) 0.3H, White Blood Count 7.3, Red Blood Count 4.35 , Hemoglobin 12.1, Hematocrit 37.5, Mean Corpuscular Volume 86.2, Mean Corpuscular Hemoglobin 27.8, Mean Corpuscular Hemoglobin Concent 32.3, Red Cell Distribution Width 13.6, Platelet Count 260, Neutrophils (%) (Auto) 47.8, Lymphocytes (%) (Auto) 41.5, Monocytes (%) (Auto) 7.0H, Eosinophils (%) (Auto) 3.1H, Basophils (%) (Auto) 0.3, Neutrophils # (Auto) 3.5, Lymphocytes # (Auto) 3.0, Monocytes # (Auto) 0.5, Eosinophils # (Auto) 0.2, Basophils # (Auto) 0.0, Immature Granulocyte # (Auto) 0.0, Nucleated Red Blood Cells % (auto) 0.0, Anion Gap 8, Glomerular Filtration Rate > 60.0, Blood Urea Nitrogen 10, Creatinine 0.73, Sodium Level 143, Potassium Level 4.4, Chloride Level 109H, Carbon Dioxide Level 26, Calcium Level 8.4L, Aspartate Amino Transf (AST/SGOT) 14, Alanine Aminotransferase (ALT/SGPT) 21, Alkaline Phosphatase 60, Total Bilirubin 0.1#L, Total Protein 6.7, Albumin 3.1#L, Albumin/Globulin Ratio 0.86L CBC/BMP Laboratory Tests 01/30/17 07:12 Red Blood Count 4.35, Mean Corpuscular Volume 86.2, Mean Corpuscular Hemoglobin 27.8, Mean Corpuscular Hemoglobin Concent 32.3, Red Cell Distribution Width 13.6 , Neutrophils (%) (Auto) 47.8, Lymphocytes (%) (Auto) 41.5, Monocytes (%) (Auto ) 7.0 H, Eosinophils (%) (Auto) 3.1 H, Basophils (%) (Auto) 0.3, Neutrophils # ( Auto) 3.5, Lymphocytes # (Auto) 3.0, Monocytes # (Auto) 0.5, Eosinophils # (Auto ) 0.2, Basophils # (Auto) 0.0, Calcium Level 8.4 L, Aspartate Amino Transf (AST/ SGOT) 14, Alanine Aminotransferase (ALT/SGPT) 21, Alkaline Phosphatase 60, Total Bilirubin 0.1 #L, Total Protein 6.7, Albumin 3.1 #L Current Medications Current Medications Al Hydrox/Mg Hydrox/Simethicone (Mylanta) 30 ml Q4HP PRN PO HEARTBURN/ INDIGESTION; Start 01/28/17 at 01:15; Stop 02/27/17 at 01:14 Buprenorphine/ Naloxone (Suboxone 2/ 0.5mg) 1 tab BID SL Last administered on 01/30/17 09:37; Start 01/29/17 at 21:00; Stop 02/05/17 at 20:59 Buprenorphine/ Naloxone (Suboxone 8/2mg) 1 tab DAILY SL Last administered on 09:12; Start 01/28/17 at 09:00; Stop 01/29/17 at 13:34; Status DC Cetirizine HCl (ZyrTEC) 10 mg DAILY PO Last administered on 01/30/17 09:37; Start 01/28/17 at 09:00; Stop 02/27/17 at 08:59 Citalopram Hydrobromide (CeleXA) 40 mg DAILY PO Last administered on 01/30/17 09:37; Start 01/28/17 at 09:00; Stop 02/27/17 at 08:59 Clonidine HCl (Catapres) 0.1 mg BID PO Last administered on 01/30/17 09:37; Start 01/28/17 at 09:00; Stop 02/27/17 at 08:59 Docusate Sodium (Colace) 100 mg BID PRN PO CONSTIPATION; Start 01/28/17 at 01: 15; Stop 02/27/17 at 01:14 Gabapentin (Neurontin) 400 mg DAILY PO Last administered on 01/30/17 09:37; Start 01/28/17 at 09:00; Stop 02/27/17 at 08:59 Home Med (Med Rec Complete!) ASDIRECTED XX ; Start 01/27/17 at 21:00; Stop 01/27/17 at 21:04; Status DC Lorazepam (Ativan) 1 mg STAT STAT PO Last administered on 12/2/17at 19:53; Start 01/27/17 at 19:48; Stop 01/27/17 at 19:49; Status DC Magnesium Hydroxide (Milk Of Magnesia) 30 ml DAILYPRN PRN PO CONSTIPATION; Start 01/28/17 at 01:15; Stop 02/27/17 at 01:14 Naproxen (Naprosyn) 375 mg BIDP PRN PO PAIN OR DISCOMFORT; Start 01/28/17 at 01 :15; Stop 02/27/17 at 01:14 Nicotine (Nicoderm Cq 21mg) 1 patch DAILY TD Last administered on 01/30/17 09: 38; Start 01/28/17 at 09:00; Stop 02/27/17 at 08:59 Olanzapine (ZyPREXA ZYDIS) 5 mg Q4HP PRN PO ANXIETY/AGITATION Last administered on 01/28/17 09:50; Start 01/28/17 at 01:15; Stop 02/27/17 at 01:14 Quetiapine Fumarate (SEROquel) 150 mg QHS PO Last administered on 01/29/17 22: 09; Start 01/29/17 at 21:00; Stop 02/28/17 at 20:59 Quetiapine Fumarate (SEROquel) 300 mg QHS PO Last administered on 01/28/17 21: 51; Start 01/28/17 at 21:00; Stop 01/29/17 at 13:32; Status DC Topiramate (TopAMAX) 50 mg DAILY PO Last administered on 01/30/17 09:37; Start 01/28/17 at 09:00; Stop 02/27/17 at 08:59 Trazodone HCl (Desyrel) 50 mg QHS PRN PO INSOMNIA; Start 01/28/17 at 01:15; Stop 02/27/17 at 01:14 Allergies Coded Allergies: Codeine (Unverified Allergy, Intermediate, swelling, 11/05/14) LAYNE RODRIGUES MD Jan 30, 2017 11:37
[2017-01-30 18:00] VITALS: BP 108/66
[2017-01-30] MEDS: QUEtiapine FUMARATE 50 MG TAB PO SCH (20:41)
[2017-01-31 06:44] VITALS: BP 98/53
[2017-01-31] MEDS: CETIRIZINE (ZyrTEC) 10 MG TAB PO SCH (09:00)
[2017-01-31] MEDS: NICOTINE 21MG/24HR 1 EA TRANSDERMAL TD SCH (09:00)
[2017-01-31] MEDS ORDERED: CEPACOL LOZENGE PO PRN (15:15)
[2017-01-31] MEDS ORDERED: IBUPROFEN 600 MG TAB PO PRN (15:15)
--- NOTE | 2017-01-31 15:23 | MHIPNPDOC ---
[facility] Progress Note Progress Note DATE OF SERVICE: 01/31/17 HISTORY: According to Dr. Medina's progress note: "Has a history of bipolar disorder, and has been misusing methamphetamines. She was in rehabilitation in [facility], just completed a 30-day stay, and this is per the patient and the emergency room (ER) records. She was discharged in the last week or so, and has relapsed using methamphetamines." The patient says she has been taking Suboxone for 2 years. She relapsed on methamphetamines because she had relationship problems VITAL SIGNS: See below. NEW TEST RESULTS: N/A CURRENT MEDICATIONS: See below. MENTAL STATUS EXAMINATION: Patient is a 31-year old female, who is alert, dressed in hospital clothes, guarded, mildly cooperative Speech: Sparse speech, low in volume, normal tone, normal rate Language skills are f good Thought processes including: Linear, coherent Thought content: Worried about feeling sick, she's got a sore throat Abstract reasoning, and computation: Fair Description of associations: Normal Description of abnormal or psychotic thoughts: Denies A/V hallucinations, continues to feel a little bit paranoid, denies SI/HI Judgment: Poor Insight: Poor Orientation: oriented x 3 Recent and remote memory: Fair Attention span and concentration: A little less distractible Language: Fair Fund of knowledge: Limited. Mood: "I feel very tired " Affect: Constricted DIAGNOSES: 1. Schizoaffective disorder 2. Borderline Personality disorder ASSESSMENT: Patient complains of having sore throat, muscle aches and pains and a green sputum. I ordered chest x-rays, PA and lateral + Cepacol 1 lozenge by mouth every 3-4 hours when necessary for sore throat, ibuprofen 600 mg every 6 hours by mouth when necessary for fever and pain. Order a CBC with differential to decide whether we should give her antibiotics or not. She continues to say that she feels depressed and tired, but her upper respiratory infection is contributing to this. MANAGEMENT PLAN: Continue with the same medications and started on ibuprofen and Cepacol for sore throat, pain and fever. Chest x-ray and CBC with differential to rule out bacterial infection (bronchitis/pneumonia) Vital Signs Vital Signs Date Time Temp Pulse Resp B/P (MAP) Pulse Ox O2 Delivery O2 Flow Rate FiO2 01/31/17 06:44 99.6 59 18 98/53 (68) 01/30/17 09:24 Room Air 01/27/17 23:23 98 Current Medications Current Medications Al Hydrox/Mg Hydrox/Simethicone (Mylanta) 30 ml Q4HP PRN PO HEARTBURN/ INDIGESTION; Start 01/28/17 at 01:15; Stop 02/27/17 at 01:14 Buprenorphine/ Naloxone (Suboxone 2/ 0.5mg) 1 tab BID SL Last administered on 01/30/17 20:39; Start 01/29/17 at 21:00; Stop 01/31/17 at 09:18; Status DC Buprenorphine/ Naloxone (Suboxone 2/ 0.5mg) 1 tab DAILY SL ; Start 01/31/17 at 09:00; Stop 02/07/17 at 08:59 Buprenorphine/ Naloxone (Suboxone 8/2mg) 1 tab DAILY SL Last administered on 09:12; Start 01/28/17 at 09:00; Stop 01/29/17 at 13:34; Status DC Cetirizine HCl (ZyrTEC) 10 mg DAILY PO Last administered on 01/30/17 09:37; Start 01/28/17 at 09:00; Stop 02/27/17 at 08:59 Citalopram Hydrobromide (CeleXA) 40 mg DAILY PO Last administered on 01/30/17 09:37; Start 01/28/17 at 09:00; Stop 02/27/17 at 08:59 Clonidine HCl (Catapres) 0.1 mg BID PO Last administered on 01/30/17 20:41; Start 01/28/17 at 09:00; Stop 01/31/17 at 09:18; Status DC Clonidine HCl (Catapres) 0.1 mg QHS PO ; Start 01/31/17 at 21:00; Stop 02/27/17 at 08:59 Docusate Sodium (Colace) 100 mg BID PRN PO CONSTIPATION; Start 01/28/17 at 01: 15; Stop 02/27/17 at 01:14 Gabapentin (Neurontin) 400 mg DAILY PO Last administered on 01/30/17 09:37; Start 01/28/17 at 09:00; Stop 02/27/17 at 08:59 Home Med (Med Rec Complete!) ASDIRECTED XX ; Start 01/27/17 at 21:00; Stop 01/27/17 at 21:04; Status DC Lorazepam (Ativan) 1 mg STAT STAT PO Last administered on 01/27/17 19:53; Start 01/27/17 at 19:48; Stop 01/27/17 at 19:49; Status DC Magnesium Hydroxide (Milk Of Magnesia) 30 ml DAILYPRN PRN PO CONSTIPATION; Start 01/28/17 at 01:15; Stop 02/27/17 at 01:14 Naproxen (Naprosyn) 375 mg BIDP PRN PO PAIN OR DISCOMFORT; Start 01/28/17 at 01 :15; Stop 02/27/17 at 01:14 Nicotine (Nicoderm Cq 21mg) 1 patch DAILY TD Last administered on 01/30/17 09: 38; Start 01/28/17 at 09:00; Stop 02/27/17 at 08:59 Olanzapine (ZyPREXA ZYDIS) 5 mg Q4HP PRN PO ANXIETY/AGITATION Last administered on 01/28/17 09:50; Start 01/28/17 at 01:15; Stop 02/27/17 at 01:14 Quetiapine Fumarate (SEROquel) 75 mg QHS PO ; Start 01/31/17 at 21:00; Stop 03/02 at 20:59 Quetiapine Fumarate (SEROquel) 150 mg QHS PO Last administered on 01/30/17 20: 41; Start 01/29/17 at 21:00; Stop 01/31/17 at 09:18; Status DC Quetiapine Fumarate (SEROquel) 300 mg QHS PO Last administered on 01/28/17 21: 51; Start 01/28/17 at 21:00; Stop 01/29/17 at 13:32; Status DC Topiramate (TopAMAX) 50 mg DAILY PO Last administered on 01/30/17 09:37; Start 01/28/17 at 09:00; Stop 02/27/17 at 08:59 Trazodone HCl (Desyrel) 50 mg QHS PRN PO INSOMNIA; Start 01/28/17 at 01:15; Stop 02/27/17 at 01:14 Allergies Coded Allergies: Codeine (Unverified Allergy, Intermediate, swelling, 11/05/14) LAYNE RODRIGUES MD Jan 31, 2017 15:23
[2017-01-31] MEDS: TOPIRAMATE (TopAMAX) 25 MG TAB PO SCH (15:24)
[2017-01-31] MEDS: BUPRENORPHINE/NALOXONE 2-0.5MG SUBLINGUAL TABLET(SUBOXONE) SL SCH (15:24)
[2017-01-31] MEDS: CitaloPRAM (CeleXA) 20 MG TAB PO SCH (15:24)
[2017-01-31] MEDS: GABAPENTIN 400 MG CAP PO SCH (15:24)
[2017-01-31 16:06] LABS: BASO % 0.5 % (0.0-1.0); EOS # 0.2 10^3/uL (0.0-0.50); EOS % 2.1 % (0.0-3.0); IMMATURE GRANULOCYTE % 0.3 % (0-0); LYMPH # 2.6 10^3/uL (1.5-6.5); LYMPH % 33.6 % (24.0-44.0); MEAN CORPUSCULAR HEMOGLOBIN 27.5 pg (27.0-33.0); MEAN CORPUSCULAR HGB CONC 32.3 g/dl (32.0-36.5); MONO # 0.5 10^3/uL (0.0-0.8); MONO % 6.1 % (0.0-5.0); NEUTROPHILS # 4.4 10^3/uL (1.8-7.7); NEUTROPHILS % 57.4 % (36.0-66.0); PLATELET COUNT, AUTOMATED 291 10^3/uL (150-450); RED CELL DISTRIBUTION WIDTH 13.3 % (11.5-14.5); WHITE BLOOD COUNT 7.7 10^3/uL (4.0-10.0)
[2017-01-31 18:00] VITALS: BP 120/64
--- NOTE | 2017-01-31 19:05 | REP ---
CHEST X-RAY PA AND LATERAL: 01/31/2017. Comparison: 06/12/2013. Clinical history: Productive cough, green sputum. Findings: The two-views show the lung meier well inflated. There is no dense consolidation, pleural effusion, atelectasis or mass. The heart, mediastinal, and hilar contours are normal. A few cuffed bronchi in the perihilar regions are noted that may reflect reactive airway disease or bronchitis. No bony abnormalities. No free air under the diaphragm. Impression: 1. Some perihilar changes of bronchitis or reactive airway disease. No dense consolidation or effusion. Signed by Demar Vail MD 01/31/2017 07:50 P
[2017-01-31] MEDS: AUGMENTIN 875 MG TAB PO SCH (22:08)
[2017-01-31] MEDS: QUEtiapine FUMARATE 50 MG TAB PO SCH (22:09)
[2017-01-31] MEDS: cloNIDine 0.1 MG TAB PO SCH (22:09)
[2017-02-01 06:36] VITALS: BP 99/53
[2017-02-01] MEDS: CETIRIZINE (ZyrTEC) 10 MG TAB PO SCH (09:00)
[2017-02-01] MEDS: NICOTINE 21MG/24HR 1 EA TRANSDERMAL TD SCH (09:00)
[2017-02-01] MEDS: AUGMENTIN 875 MG TAB PO SCH ×2 (10:02→21:18)
[2017-02-01] MEDS: TOPIRAMATE (TopAMAX) 25 MG TAB PO SCH (10:02)
[2017-02-01] MEDS: CitaloPRAM (CeleXA) 20 MG TAB PO SCH (10:02)
[2017-02-01] MEDS: GABAPENTIN 400 MG CAP PO SCH (10:02)
[2017-02-01] MEDS: BUPRENORPHINE/NALOXONE 2-0.5MG SUBLINGUAL TABLET(SUBOXONE) SL SCH (10:02)
--- NOTE | 2017-02-01 16:01 | MHIPNPDOC ---
[facility] Progress Note Progress Note DATE OF SERVICE: 02/01/17 HISTORY: According to Dr. Medina's progress note: "Has a history of bipolar disorder, and has been misusing methamphetamines. She was in rehabilitation in [facility], just completed a 30-day stay, and this is per the patient and the emergency room (ER) records. She was discharged in the last week or so, and has relapsed using methamphetamines." The patient says she has been taking Suboxone for 2 years. She relapsed on methamphetamines because she had relationship problems VITAL SIGNS: See below. NEW TEST RESULTS: N/A CURRENT MEDICATIONS: See below. MENTAL STATUS EXAMINATION: Patient is a 31-year old female, who is alert, dressed in hospital clothes, irritable,poor eye contact Speech: Low volume, slow, normal tone. Language skills are fair Thought processes including: coherent Thought content: Anxious thoughts about having a sore throat and getting a cold Abstract reasoning, and computation: Fair Description of associations: Normal Description of abnormal or psychotic thoughts: Denies A/V hallucinations, continues to feel a little bit paranoid, denies SI/HI Judgment: Improving Insight: Improving Orientation: oriented x 3 Recent and remote memory: Fair Attention span and concentration: A little less distractible Language: Fair Fund of knowledge: Limited. Mood: "I feel very a little better" Affect: Constricted DIAGNOSES: 1. Schizoaffective disorder 2. Borderline Personality disorder ASSESSMENT: Patient says she has been having chills, has a sore throat, is not coughing, has a stuffy nose, has not been running a fever. Patient was started on Flonase, nasal spray, she was started last night on Augmentin. She has been advised to contact her nurse in case she feels she is getting worse, because she is still taking Suboxone and we want to prevent any respiratory problems. Before i spoke to her today, she was speaking with someone over the phone on the hallway and she was pretty angry, searing and cursing. MANAGEMENT PLAN: will continue on the same psychiatric medications and will add flonase and nasal spray for upper respiratory infection. TIME SPENT: 20 minutes. Vital Signs Vital Signs Date Time Temp Pulse Resp B/P (MAP) Pulse Ox O2 Delivery O2 Flow Rate FiO2 02/01/17 08:23 Room Air 02/01/17 06:36 97.9 53 14 99/53 (68) 01/27/17 23:23 98 Current Medications Current Medications Al Hydrox/Mg Hydrox/Simethicone (Mylanta) 30 ml Q4HP PRN PO HEARTBURN/ INDIGESTION; Start 01/28/17 at 01:15; Stop 02/27/17 at 01:14 Amoxicillin/ Clavulanate Potassium (Augmentin) 875 mg BID PO Last administered on 02/01/17 10:02; Start 01/31/17 at 21:00; Stop 02/07/17 at 21:00 Buprenorphine/ Naloxone (Suboxone 2/ 0.5mg) 1 tab BID SL Last administered on 01/30/17 20:39; Start 01/29/17 at 21:00; Stop 01/31/17 at 09:18; Status DC Buprenorphine/ Naloxone (Suboxone 2/ 0.5mg) 1 tab DAILY SL Last administered on 02/01/17 10:02; Start 01/31/17 at 09:00; Stop 02/07/17 at 08:59 Buprenorphine/ Naloxone (Suboxone 8/2mg) 1 tab DAILY SL Last administered on 09:12; Start 01/28/17 at 09:00; Stop 01/29/17 at 13:34; Status DC Cetirizine HCl (ZyrTEC) 10 mg DAILY PO Last administered on 01/30/17 09:37; Start 01/28/17 at 09:00; Stop 02/27/17 at 08:59 Cetylpyridinium Chloride (Cepacol) 1 kevin Q3HP PRN PO SORE THROAT Last administered on 01/31/17 15:23; Start 01/31/17 at 15:15; Stop 03/02/17 at 15:14 Citalopram Hydrobromide (CeleXA) 40 mg DAILY PO Last administered on 02/01/17 10:02; Start 01/28/17 at 09:00; Stop 02/27/17 at 08:59 Clonidine HCl (Catapres) 0.1 mg BID PO Last administered on 01/30/17 20:41; Start 01/28/17 at 09:00; Stop 01/31/17 at 09:18; Status DC Clonidine HCl (Catapres) 0.1 mg QHS PO Last administered on 01/31/17 22:09; Start 01/31/17 at 21:00; Stop 02/27/17 at 08:59 Docusate Sodium (Colace) 100 mg BID PRN PO CONSTIPATION; Start 01/28/17 at 01: 15; Stop 02/27/17 at 01:14 Gabapentin (Neurontin) 400 mg DAILY PO Last administered on 02/01/17 10:02; Start 01/28/17 at 09:00; Stop 02/27/17 at 08:59 Home Med (Med Rec Complete!) ASDIRECTED XX ; Start 01/27/17 at 21:00; Stop 01/27/17 at 21:04; Status DC Ibuprofen (Advil) 600 mg Q6HP PRN PO FEVER AND PAIN; Start 01/31/17 at 15:15; Stop 03/02/17 at 15:14 Lorazepam (Ativan) 1 mg STAT STAT PO Last administered on 01/27/17 19:53; Start 01/27/17 at 19:48; Stop 01/27/17 at 19:49; Status DC Magnesium Hydroxide (Milk Of Magnesia) 30 ml DAILYPRN PRN PO CONSTIPATION; Start 01/28/17 at 01:15; Stop 02/27/17 at 01:14 Naproxen (Naprosyn) 375 mg BIDP PRN PO PAIN OR DISCOMFORT Last administered on 01/31/17 15:24; Start 01/28/17 at 01:15; Stop 02/27/17 at 01:14 Nicotine (Nicoderm Cq 21mg) 1 patch DAILY TD Last administered on 01/30/17 09: 38; Start 01/28/17 at 09:00; Stop 02/27/17 at 08:59 Olanzapine (ZyPREXA ZYDIS) 5 mg Q4HP PRN PO ANXIETY/AGITATION Last administered on 01/28/17 09:50; Start 01/28/17 at 01:15; Stop 02/27/17 at 01:14 Quetiapine Fumarate (SEROquel) 75 mg QHS PO Last administered on 01/31/17 22: 09; Start 01/31/17 at 21:00; Stop 03/02/17 at 20:59 Quetiapine Fumarate (SEROquel) 150 mg QHS PO Last administered on 01/30/17 20: 41; Start 01/29/17 at 21:00; Stop 01/31/17 at 09:18; Status DC Quetiapine Fumarate (SEROquel) 300 mg QHS PO Last administered on 01/28/17 21: 51; Start 01/28/17 at 21:00; Stop 01/29/17 at 13:32; Status DC Topiramate (TopAMAX) 50 mg DAILY PO Last administered on 02/01/17 10:02; Start 01/28/17 at 09:00; Stop 02/27/17 at 08:59 Trazodone HCl (Desyrel) 50 mg QHS PRN PO INSOMNIA; Start 01/28/17 at 01:15; Stop 02/27/17 at 01:14 Allergies Coded Allergies: Codeine (Unverified Allergy, Intermediate, swelling, 11/05/14) LAYNE RODRIGUES MD Feb 01, 2017 16:00
[2017-02-01] MEDS: OLANZapine ORAL DISINTEGRATING TAB 5MG PO PRN (16:15)
[2017-02-01 18:00] VITALS: BP 115/62
[2017-02-01] MEDS: cloNIDine 0.1 MG TAB PO SCH (21:00)
[2017-02-01] MEDS: FLUTICASONE PROP 0.05% NASAL SPRAY 16 GM (FLONASE) SCH (21:17)
[2017-02-01] MEDS: SODIUM CHLORIDE NASAL 0.65% SPRAY BTL (OCEAN) SCH (21:17)
[2017-02-01] MEDS: QUEtiapine FUMARATE 50 MG TAB PO SCH (21:18)
[2017-02-02 06:41] VITALS: BP 96/51
[2017-02-02] MEDS: NICOTINE 21MG/24HR 1 EA TRANSDERMAL TD SCH (09:00)
[2017-02-02] MEDS: CETIRIZINE (ZyrTEC) 10 MG TAB PO SCH (09:39)
[2017-02-02] MEDS: CitaloPRAM (CeleXA) 20 MG TAB PO SCH (09:39)
[2017-02-02] MEDS: BUPRENORPHINE/NALOXONE 2-0.5MG SUBLINGUAL TABLET(SUBOXONE) SL SCH (09:39)
[2017-02-02] MEDS: TOPIRAMATE (TopAMAX) 25 MG TAB PO SCH (09:39)
[2017-02-02] MEDS: AUGMENTIN 875 MG TAB PO SCH ×2 (09:39→22:32)
[2017-02-02] MEDS: GABAPENTIN 400 MG CAP PO SCH (09:39)
[2017-02-02] MEDS: FLUTICASONE PROP 0.05% NASAL SPRAY 16 GM (FLONASE) SCH ×3 (09:40→22:35)
[2017-02-02] MEDS: SODIUM CHLORIDE NASAL 0.65% SPRAY BTL (OCEAN) SCH ×3 (09:40→22:35)
[2017-02-02 10:02] VITALS: BP 96/51
--- NOTE | 2017-02-02 11:00 | MHIPNPDOC ---
[facility] Progress Note Progress Note DATE OF SERVICE: 02/02/17 HISTORY: According to Dr. Medina's progress note: "Has a history of bipolar disorder, and has been misusing methamphetamines. She was in rehabilitation in [facility], just completed a 30-day stay, and this is per the patient and the emergency room (ER) records. She was discharged in the last week or so, and has relapsed using methamphetamines." The patient says she has been taking Suboxone for 2 years. She relapsed on methamphetamines because she had relationship problems VITAL SIGNS: See below. NEW TEST RESULTS: N/A CURRENT MEDICATIONS: See below. MENTAL STATUS EXAMINATION: Patient is a 31-year old female, who is alert, dressed in hospital clothes, in a good mood, improved eye contact, failrly groomed, good hygiene Speech: Normal in tone, rate and volume Language skills are good Thought processes including: coherent Thought content: her anxious thoughts about her personal problems, are starting to decrease. Abstract reasoning, and computation: Fair Description of associations: Good Description of abnormal or psychotic thoughts: Denies A/V hallucinations, denies a/V hallucinations and denies thought delusions Judgment: Improving Insight: Improving Orientation: oriented x 3 Recent and remote memory: Fair Attention span and concentration: Improving Language: Fair Fund of knowledge: Limited. Mood: "I feel very a little better" Affect: Constricted DIAGNOSES: 1. Schizoaffective disorder 2. Borderline Personality disorder ASSESSMENT: Patient says her mood is better, she feels less irritable, she feels calmer today but she has body aches. This is because she has a cold, she reports her nasal congestion and sore throat have decreased. MANAGEMENT PLAN: will continue on the same psychiatric medications. Because she has a cold, I will change the frequency of her Flonase from BID to TID and her Ibuprofen, from Q6H to Q4H. will f/u/ TIME SPENT: 20 minutes. Vital Signs Vital Signs Date Time Temp Pulse Resp B/P (MAP) Pulse Ox O2 Delivery O2 Flow Rate FiO2 02/02/17 10:02 97.9 57 14 96/51 98 Room Air Current Medications Current Medications Al Hydrox/Mg Hydrox/Simethicone (Mylanta) 30 ml Q4HP PRN PO HEARTBURN/ INDIGESTION; Start 01/28/17 at 01:15; Stop 02/27/17 at 01:14 Amoxicillin/ Clavulanate Potassium (Augmentin) 875 mg BID PO Last administered on 02/02/17 09:39; Start 01/31/17 at 21:00; Stop 02/07/17 at 21:00 Buprenorphine/ Naloxone (Suboxone 2/ 0.5mg) 1 tab BID SL Last administered on 01/30/17 20:39; Start 01/29/17 at 21:00; Stop 01/31/17 at 09:18; Status DC Buprenorphine/ Naloxone (Suboxone 2/ 0.5mg) 1 tab DAILY SL Last administered on 02/02/17 09:39; Start 01/31/17 at 09:00; Stop 02/07/17 at 08:59 Buprenorphine/ Naloxone (Suboxone 8/2mg) 1 tab DAILY SL Last administered on 09:12; Start 01/28/17 at 09:00; Stop 01/29/17 at 13:34; Status DC Cetirizine HCl (ZyrTEC) 10 mg DAILY PO Last administered on 02/02/17 09:39; Start 01/28/17 at 09:00; Stop 02/27/17 at 08:59 Cetylpyridinium Chloride (Cepacol) 1 kevin Q3HP PRN PO SORE THROAT Last administered on 01/31/17 15:23; Start 01/31/17 at 15:15; Stop 03/02/17 at 15:14 Citalopram Hydrobromide (CeleXA) 40 mg DAILY PO Last administered on 02/02/17 09:39; Start 01/28/17 at 09:00; Stop 02/27/17 at 08:59 Clonidine HCl (Catapres) 0.1 mg BID PO Last administered on 01/30/17 20:41; Start 01/28/17 at 09:00; Stop 01/31/17 at 09:18; Status DC Clonidine HCl (Catapres) 0.1 mg QHS PO Last administered on 01/31/17 22:09; Start 01/31/17 at 21:00; Stop 02/27/17 at 08:59 Docusate Sodium (Colace) 100 mg BID PRN PO CONSTIPATION; Start 01/28/17 at 01: 15; Stop 02/27/17 at 01:14 Fluticasone Propionate (Flonase 0.05% Nasal [place]) 1 spray BID NA Last administered on 02/02/17 09:40; Start 02/01/17 at 21:00; Stop 03/03/17 at 20:59 Gabapentin (Neurontin) 400 mg DAILY PO Last administered on 02/02/17 09:39; Start 01/28/17 at 09:00; Stop 02/27/17 at 08:59 Home Med (Med Rec Complete!) ASDIRECTED XX ; Start 01/27/17 at 21:00; Stop 01/27/17 at 21:04; Status DC Ibuprofen (Advil) 600 mg Q6HP PRN PO FEVER AND PAIN Last administered on 16:15; Start 01/31/17 at 15:15; Stop 03/02/17 at 15:14 Lorazepam (Ativan) 1 mg STAT STAT PO Last administered on 01/27/17 19:53; Start 01/27/17 at 19:48; Stop 01/27/17 at 19:49; Status DC Magnesium Hydroxide (Milk Of Magnesia) 30 ml DAILYPRN PRN PO CONSTIPATION; Start 01/28/17 at 01:15; Stop 02/27/17 at 01:14 Naproxen (Naprosyn) 375 mg BIDP PRN PO PAIN OR DISCOMFORT Last administered on 01/31/17 15:24; Start 01/28/17 at 01:15; Stop 02/01/17 at 16:08; Status DC Nicotine (Nicoderm Cq 21mg) 1 patch DAILY TD Last administered on 01/30/17 09: 38; Start 01/28/17 at 09:00; Stop 02/27/17 at 08:59 Olanzapine (ZyPREXA ZYDIS) 5 mg Q4HP PRN PO ANXIETY/AGITATION Last administered on 02/01/17 16:15; Start 01/28/17 at 01:15; Stop 02/27/17 at 01:14 Quetiapine Fumarate (SEROquel) 75 mg QHS PO Last administered on 02/01/17 21: 18; Start 01/31/17 at 21:00; Stop 03/02/17 at 20:59 Quetiapine Fumarate (SEROquel) 150 mg QHS PO Last administered on 01/30/17 20: 41; Start 01/29/17 at 21:00; Stop 01/31/17 at 09:18; Status DC Quetiapine Fumarate (SEROquel) 300 mg QHS PO Last administered on 01/28/17 21: 51; Start 01/28/17 at 21:00; Stop 01/29/17 at 13:32; Status DC Sodium Chloride ([place] Nasal [place]) 2 spray TID NA Last administered on 09:40; Start 02/01/17 at 21:00; Stop 03/03/17 at 20:59 Topiramate (TopAMAX) 50 mg DAILY PO Last administered on 02/02/17 09:39; Start 01/28/17 at 09:00; Stop 02/27/17 at 08:59 Trazodone HCl (Desyrel) 50 mg QHS PRN PO INSOMNIA; Start 01/28/17 at 01:15; Stop 02/27/17 at 01:14 Allergies Coded Allergies: Codeine (Unverified Allergy, Intermediate, swelling, 11/05/14) LAYNE RODRIGUES MD Feb 02, 2017 11:00
[2017-02-02] MEDS ORDERED: IBUPROFEN 600 MG TAB PO PRN (13:00)
[2017-02-02] MEDS: OLANZapine ORAL DISINTEGRATING TAB 5MG PO PRN (14:46)
[2017-02-02 18:00] VITALS: BP 92/48
[2017-02-02] MEDS: cloNIDine 0.1 MG TAB PO SCH (22:34)
[2017-02-02] MEDS: QUEtiapine FUMARATE 50 MG TAB PO SCH (22:35)
[2017-02-02] MEDS: traZODone 50 MG TAB PO PRN (22:35)
[2017-02-03 06:30] VITALS: BP 96/60
[2017-02-03] MEDS: AUGMENTIN 875 MG TAB PO SCH ×2 (09:59→21:01)
[2017-02-03] MEDS: FLUTICASONE PROP 0.05% NASAL SPRAY 16 GM (FLONASE) SCH ×3 (09:59→21:01)
[2017-02-03] MEDS: BUPRENORPHINE/NALOXONE 2-0.5MG SUBLINGUAL TABLET(SUBOXONE) SL SCH (09:59)
[2017-02-03] MEDS: SODIUM CHLORIDE NASAL 0.65% SPRAY BTL (OCEAN) SCH ×3 (09:59→21:01)
[2017-02-03] MEDS: TOPIRAMATE (TopAMAX) 25 MG TAB PO SCH (09:59)
[2017-02-03] MEDS: CETIRIZINE (ZyrTEC) 10 MG TAB PO SCH (09:59)
[2017-02-03] MEDS: GABAPENTIN 400 MG CAP PO SCH (09:59)
[2017-02-03] MEDS: CitaloPRAM (CeleXA) 20 MG TAB PO SCH (09:59)
[2017-02-03] MEDS: NICOTINE 21MG/24HR 1 EA TRANSDERMAL TD SCH (10:00)
[2017-02-03 18:00] VITALS: BP 112/62
[2017-02-03] MEDS: cloNIDine 0.1 MG TAB PO SCH (21:01)
[2017-02-03] MEDS: QUEtiapine FUMARATE 50 MG TAB PO SCH (21:02)
[2017-02-04 07:01] VITALS: BP 113/62
[2017-02-04] MEDS: CETIRIZINE (ZyrTEC) 10 MG TAB PO SCH (09:21)
[2017-02-04] MEDS: FLUTICASONE PROP 0.05% NASAL SPRAY 16 GM (FLONASE) SCH ×3 (09:21→20:21)
[2017-02-04] MEDS: SODIUM CHLORIDE NASAL 0.65% SPRAY BTL (OCEAN) SCH ×3 (09:21→20:21)
[2017-02-04] MEDS: AUGMENTIN 875 MG TAB PO SCH ×2 (09:21→20:21)
[2017-02-04] MEDS: BUPRENORPHINE/NALOXONE 2-0.5MG SUBLINGUAL TABLET(SUBOXONE) SL SCH (09:21)
[2017-02-04] MEDS: TOPIRAMATE (TopAMAX) 25 MG TAB PO SCH (09:21)
[2017-02-04] MEDS: GABAPENTIN 400 MG CAP PO SCH (09:21)
[2017-02-04] MEDS: CitaloPRAM (CeleXA) 20 MG TAB PO SCH (09:21)
[2017-02-04] MEDS: NICOTINE 21MG/24HR 1 EA TRANSDERMAL TD SCH (09:22)
[2017-02-04] MEDS: OLANZapine ORAL DISINTEGRATING TAB 5MG PO PRN (14:28)
[2017-02-04 18:00] VITALS: BP 98/50
[2017-02-04] MEDS: cloNIDine 0.1 MG TAB PO SCH (20:22)
[2017-02-04] MEDS: QUEtiapine FUMARATE 50 MG TAB PO SCH (20:22)
[2017-02-05 06:00] VITALS: BP 120/58
[2017-02-05] MEDS ORDERED: NALTREXONE 50 MG TAB PO SCH (09:00)
[2017-02-05] MEDS: BUPRENORPHINE/NALOXONE 2-0.5MG SUBLINGUAL TABLET(SUBOXONE) SL SCH (09:00)
[2017-02-05] MEDS: CitaloPRAM (CeleXA) 20 MG TAB PO SCH (09:42)
[2017-02-05] MEDS: AUGMENTIN 875 MG TAB PO SCH ×2 (09:42→19:40)
[2017-02-05] MEDS: TOPIRAMATE (TopAMAX) 25 MG TAB PO SCH (09:42)
[2017-02-05] MEDS: CETIRIZINE (ZyrTEC) 10 MG TAB PO SCH (09:42)
[2017-02-05] MEDS: GABAPENTIN 400 MG CAP PO SCH (09:42)
[2017-02-05] MEDS: SODIUM CHLORIDE NASAL 0.65% SPRAY BTL (OCEAN) SCH ×3 (09:43→19:40)
[2017-02-05] MEDS: FLUTICASONE PROP 0.05% NASAL SPRAY 16 GM (FLONASE) SCH ×3 (09:43→19:40)
[2017-02-05] MEDS: NICOTINE 21MG/24HR 1 EA TRANSDERMAL TD SCH (09:43)
--- NOTE | 2017-02-05 12:06 | MHIPNPDOC ---
[facility] Progress Note Progress Note DATE OF SERVICE: 02/05/17 HISTORY: According to Dr. Medina's progress note: "Has a history of bipolar disorder, and has been misusing methamphetamines. She was in rehabilitation in [facility], just completed a 30-day stay, and this is per the patient and the emergency room (ER) records. She was discharged in the last week or so, and has relapsed using methamphetamines." Today the patient was taken off suboxone because we needed to make sure she was going to keep going toa provider taht would prescribe the medication. Again, she reassured me she had been at the program for two years in [place] VITAL SIGNS: See below. NEW TEST RESULTS: N/A CURRENT MEDICATIONS: See below. MENTAL STATUS EXAMINATION: Patient is a 31-year old female, who is alert, dressed in hospital clothes, stressed, poor eye contact, poorly groomed, fair hygiene Speech: Normal in tone, rate and volume Language skills are impaired today, patient is moaning because she says she is missing her suboxone Thought processes including: coherent Thought content: her anxious thoughts about not being able to take Suboxone Abstract reasoning, and computation: Not assessed today. Patient was stressed out and not cooperative at this time Description of associations: Not able to assess. Patient is moaning, saying she' s in pain due to the lack of suboxone today. Description of abnormal or psychotic thoughts: Denies A/V hallucinations, denies a/V hallucinations and denies thought delusions Judgment: Limited Insight: Limited Orientation: oriented x 3 Recent and remote memory: Fair Attention span and concentration: Limited Language: Fair Fund of knowledge: Limited. Mood: "I want my suboxone" Affect: Anxious DIAGNOSES: 1. Schizoaffective disorder 2. Borderline Personality disorder ASSESSMENT: Patient is focused on receiving Suboxone. According to the workforce planner and social workers as well as nursing staff patient was not receiving Suboxone previously and she will need to be connected to an outpatient facility where she will be receiving it. Patient reassures all of us that she has been taking Suboxone for 2 years at a program in [place]. technical planner was able to confirm it, she will receiving Suboxone, that minimum dose daily. Patient wants to be discharged home and mother doesn't want her to be discharged because mother thinks the patient is completely psychotic and that she should go to [facility] but she doesn't fulfill the criteria for going to [place]. When she was admitted she said that one of her biggest problems was her relationship with her , besides financial problems and family problems but now she says she wants to go back to her . MANAGEMENT PLAN: Continue Suboxone 2 mg/0.5, daily and probably will discharge her tomorrow TIME SPENT: 20 minutes. Vital Signs Vital Signs Date Time Temp Pulse Resp B/P (MAP) Pulse Ox O2 Delivery O2 Flow Rate FiO2 02/05/17 06:00 98.7 52 20 120/58 (78) 02/03/17 09:37 Room Air 02/02/17 10:02 98 Current Medications Current Medications Al Hydrox/Mg Hydrox/Simethicone (Mylanta) 30 ml Q4HP PRN PO HEARTBURN/ INDIGESTION; Start 01/28/17 at 01:15; Stop 02/27/17 at 01:14 Amoxicillin/ Clavulanate Potassium (Augmentin) 875 mg BID PO Last administered on 02/05/17 09:42; Start 01/31/17 at 21:00; Stop 02/07/17 at 21:00 Buprenorphine/ Naloxone (Suboxone 2/ 0.5mg) 1 tab BID SL Last administered on 01/30/17 20:39; Start 01/29/17 at 21:00; Stop 01/31/17 at 09:18; Status DC Buprenorphine/ Naloxone (Suboxone 2/ 0.5mg) 1 tab DAILY SL Last administered on 02/04/17 09:21; Start 01/31/17 at 09:00; Stop 02/05/17 at 09:04; Status DC Buprenorphine/ Naloxone (Suboxone 8/2mg) 1 tab DAILY SL Last administered on 09:12; Start 01/28/17 at 09:00; Stop 01/29/17 at 13:34; Status DC Cetirizine HCl (ZyrTEC) 10 mg DAILY PO Last administered on 02/05/17 09:42; Start 01/28/17 at 09:00; Stop 02/27/17 at 08:59 Cetylpyridinium Chloride (Cepacol) 1 kevin Q3HP PRN PO SORE THROAT Last administered on 01/31/17 15:23; Start 01/31/17 at 15:15; Stop 03/02/17 at 15:14 Citalopram Hydrobromide (CeleXA) 40 mg DAILY PO Last administered on 09:42; Start 01/28/17 at 09:00; Stop 02/27/17 at 08:59 Clonidine HCl (Catapres) 0.1 mg BID PO Last administered on 01/30/17 20:41; Start 01/28/17 at 09:00; Stop 01/31/17 at 09:18; Status DC Clonidine HCl (Catapres) 0.1 mg QHS PO Last administered on 02/04/17 20:22; Start 01/31/17 at 21:00; Stop 02/27/17 at 08:59 Docusate Sodium (Colace) 100 mg BID PRN PO CONSTIPATION; Start 01/28/17 at 01: 15; Stop 02/27/17 at 01:14 Fluticasone Propionate (Flonase 0.05% Nasal [place]) 1 spray BID NA Last administered on 02/02/17 09:40; Start 02/01/17 at 21:00; Stop 02/02/17 at 12:47 ; Status DC Fluticasone Propionate (Flonase 0.05% Nasal [place]) 1 spray TID NA Last administered on 02/05/17 09:43; Start 02/02/17 at 16:00; Stop 03/03/17 at 20:59 Gabapentin (Neurontin) 400 mg DAILY PO Last administered on 02/05/17 09:42; Start 01/28/17 at 09:00; Stop 02/27/17 at 08:59 Home Med (Med Rec Complete!) ASDIRECTED XX ; Start 01/27/17 at 21:00; Stop 01/27/17 at 21:04; Status DC Ibuprofen (Advil) 600 mg Q4HP PRN PO FEVER AND PAIN; Start 02/02/17 at 13:00; Stop 03/02/17 at 15:14 Ibuprofen (Advil) 600 mg Q6HP PRN PO FEVER AND PAIN Last administered on 16:15; Start 01/31/17 at 15:15; Stop 02/02/17 at 12:49; Status DC Lorazepam (Ativan) 1 mg STAT STAT PO Last administered on 01/27/17 19:53; Start 01/27/17 at 19:48; Stop 01/27/17 at 19:49; Status DC Magnesium Hydroxide (Milk Of Magnesia) 30 ml DAILYPRN PRN PO CONSTIPATION; Start 01/28/17 at 01:15; Stop 02/27/17 at 01:14 Naltrexone HCl (Revia) 50 mg QAM PO Last administered on 02/05/17 09:42; Start 02/05/17 at 09:00; Stop 03/07/17 at 08:59 Naproxen (Naprosyn) 375 mg BIDP PRN PO PAIN OR DISCOMFORT Last administered on 01/31/17 15:24; Start 01/28/17 at 01:15; Stop 02/01/17 at 16:08; Status DC Nicotine (Nicoderm Cq 21mg) 1 patch DAILY TD Last administered on 02/05/17 09 :43; Start 01/28/17 at 09:00; Stop 02/27/17 at 08:59 Olanzapine (ZyPREXA ZYDIS) 5 mg Q4HP PRN PO ANXIETY/AGITATION Last administered on 02/04/17 14:28; Start 01/28/17 at 01:15; Stop 02/27/17 at 01:14 Quetiapine Fumarate (SEROquel) 75 mg QHS PO Last administered on 02/04/17 20: 22; Start 01/31/17 at 21:00; Stop 03/02/17 at 20:59 Quetiapine Fumarate (SEROquel) 150 mg QHS PO Last administered on 01/30/17 20: 41; Start 01/29/17 at 21:00; Stop 01/31/17 at 09:18; Status DC Quetiapine Fumarate (SEROquel) 300 mg QHS PO Last administered on 01/28/17 21: 51; Start 01/28/17 at 21:00; Stop 01/29/17 at 13:32; Status DC Sodium Chloride (Suring Nasal Madison) 2 spray TID NA Last administered on 09:43; Start 02/01/17 at 21:00; Stop 03/03/17 at 20:59 Topiramate (TopAMAX) 50 mg DAILY PO Last administered on 02/05/17 09:42; Start 01/28/17 at 09:00; Stop 02/27/17 at 08:59 Trazodone HCl (Desyrel) 50 mg QHS PRN PO INSOMNIA Last administered on 22:35; Start 01/28/17 at 01:15; Stop 02/27/17 at 01:14 Allergies Coded Allergies: Codeine (Unverified Allergy, Intermediate, swelling, 11/05/14) LAYNE RODRIGUES MD Feb 05, 2017 12:06
[2017-02-05] MEDS ORDERED: BUPRENORPHINE/NALOXONE 2-0.5MG SUBLINGUAL TABLET(SUBOXONE) SL ONE (12:15)
[2017-02-05 18:00] VITALS: BP 130/78
[2017-02-05] MEDS: QUEtiapine FUMARATE 50 MG TAB PO SCH (19:40)
[2017-02-05 19:41] VITALS: BP 133/75
[2017-02-05] MEDS: OLANZapine ORAL DISINTEGRATING TAB 5MG PO PRN (19:41)
[2017-02-05] MEDS: cloNIDine 0.1 MG TAB PO SCH (19:41)
[2017-02-05] MEDS: traZODone 50 MG TAB PO PRN (23:29)
[2017-02-06 06:40] VITALS: BP 107/55
[2017-02-06] MEDS ORDERED: BUPRENORPHINE/NALOXONE 2-0.5MG SUBLINGUAL TABLET(SUBOXONE) SL SCH (09:00)
[2017-02-06] MEDS: FLUTICASONE PROP 0.05% NASAL SPRAY 16 GM (FLONASE) SCH (09:00)
[2017-02-06] MEDS: CitaloPRAM (CeleXA) 20 MG TAB PO SCH (09:09)
[2017-02-06] MEDS: TOPIRAMATE (TopAMAX) 25 MG TAB PO SCH (09:09)
[2017-02-06] MEDS: NICOTINE 21MG/24HR 1 EA TRANSDERMAL TD SCH (09:09)
[2017-02-06] MEDS: SODIUM CHLORIDE NASAL 0.65% SPRAY BTL (OCEAN) SCH (09:09)
[2017-02-06] MEDS: GABAPENTIN 400 MG CAP PO SCH (09:09)
[2017-02-06] MEDS: CETIRIZINE (ZyrTEC) 10 MG TAB PO SCH (09:10)
[2017-02-06] MEDS: AUGMENTIN 875 MG TAB PO SCH (09:10)
[2017-02-06] MEDS ORDERED: OLAN5ZYD PO (10:12)
[2017-02-06] MEDS ORDERED: FLUTISP (10:12)
[2017-02-06] MEDS ORDERED: GABA-283 PO (10:12)
[2017-02-06] MEDS ORDERED: CLONI1TA PO (10:12)
[2017-02-06] MEDS ORDERED: QUET5TAB PO (10:12)
[2017-02-06] MEDS ORDERED: NICO21PAT TD (10:12)
[2017-02-07] MEDS ORDERED: BUPRENORPHINE/NALOXONE 2-0.5MG SUBLINGUAL TABLET(SUBOXONE) SL SCH (09:00)
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
== END 2017-02-06 12:20 | disposition home or self-care (01) | DRG 750 ==
LOC: M ED 18:37 → M ED INP 22:47 → M PSY 23:55
PROVIDERS: ADMIT Psychiatry & Neurology Psychiatry; ATTEND Psychiatry & Neurology Psychiatry
DX: F25.9 Schizoaffective disorder, unspecified (principal); G93.5 Compression of brain; F60.3 Borderline personality disorder; Z79.899 Other long term (current) drug therapy; Z88.5 Allergy status to narcotic agent; F17.210 Nicotine dependence, cigarettes, uncomplicated; F11.90 Opioid use, unspecified, uncomplicated; F41.9 Anxiety disorder, unspecified; E66.9 Obesity, unspecified; M54.5 Low back pain; G43.909 Migraine, unspecified, not intractable, without status migrainosus; Z68.33 Body mass index [BMI] 33.0-33.9, adult; D72.829 Elevated white blood cell count, unspecified

== ENCOUNTER 2017-03-12 00:14 | Emergency (ER) | payer OTHER ==
[2017-03-12 01:19] LABS: HEMATOCRIT 40.9 % (36.0-47.0); HEMOGLOBIN 12.9 g/dl (12.0-16.0); MEAN CORPUSCULAR HEMOGLOBIN 26.6 pg (27.0-33.0); MEAN CORPUSCULAR HGB CONC 31.5 g/dl (32.0-36.5); MEAN CORPUSCULAR VOLUME 84.3 fl (80.0-96.0); PLATELET COUNT, AUTOMATED 310 10^3/uL (150-450); RED BLOOD COUNT 4.85 10^6/uL (4.00-5.40); RED CELL DISTRIBUTION WIDTH 13.3 % (11.5-14.5)
[2017-03-12 01:25] LABS: AMPHETAMINES LEVEL URINE POSITIVE (NEGATIVE); BARBITURATES URINE NEGATIVE (NEGATIVE); BENZODIAZEPINES URINE NEGATIVE (NEGATIVE); CANNABINOIDS URINE NEGATIVE (NEGATIVE); COCAINE METABOLITE URINE NEGATIVE (NEGATIVE); METHADONE URINE NEGATIVE (NEGATIVE); OPIATES URINE NEGATIVE (NEGATIVE); PHENCYCLIDINE URINE NEGATIVE (NEGATIVE)
[2017-03-12 01:51] LABS: CONTROL LINE HCG INT CTR LINE PRESENT; HCG, SERUM QUALITATIVE NEGATIVE (NEGATIVE)
[2017-03-12 01:55] LABS: ALBUMIN 3.5 GM/DL (3.2-5.2); ALKALINE PHOSPHATASE 69 U/L (45-117); ALT/SGPT 16 U/L (12-78); ANION GAP 7 MEQ/L (8-16); AST/SGOT 16 U/L (7-37); BILIRUBIN,DIRECT < 0.1 MG/DL (0.0-0.2); BILIRUBIN,TOTAL 0.3 MG/DL (0.2-1.0); BLOOD UREA NITROGEN 7 MG/DL (7-18); CALCIUM LEVEL 8.9 MG/DL (8.5-10.1); CARBON DIOXIDE LEVEL 26 MEQ/L (21-32); CHLORIDE LEVEL 107 MEQ/L (98-107); CREATININE FOR GFR 0.64 MG/DL (0.55-1.02); GLOMERULAR FILTRATION RATE > 60.0 (>60); GLUCOSE, FASTING 98 MG/DL (70-105); POTASSIUM SERUM 3.9 MEQ/L (3.5-5.1); SALICYLATE LEVEL 4.8 MG/DL (5.0-30.0); SODIUM LEVEL 140 MEQ/L (136-145); TOTAL PROTEIN 7.4 GM/DL (6.4-8.2)
[2017-03-12 01:56] LABS: ACETAMINOPHEN LEVEL < 2.0 UG/ML (10.0-30.0); ETHYL ALCOHOL (ETHANOL) < 0.003 % (0.000-0.010)
== END 2017-03-12 02:50 | disposition home or self-care (01) ==
LOC: M ED 00:14
DX: F43.0 Acute stress reaction (principal); F31.9 Bipolar disorder, unspecified; F17.210 Nicotine dependence, cigarettes, uncomplicated; Z79.51 Long term (current) use of inhaled steroids; Z79.899 Other long term (current) drug therapy; Z88.5 Allergy status to narcotic agent
CPT/HCPCS: 80320

== ENCOUNTER → 2017-04-12 | Outpatient (CLI) | payer MEDICAID | LOC: M OUTALCOH 10:43 | DX: F14.20 Cocaine dependence, uncomplicated (principal); F15.20 Other stimulant dependence, uncomplicated; F11.20 Opioid dependence, uncomplicated ==

== ENCOUNTER 2017-04-23 09:53 | Outpatient (RCR) | payer MEDICAID | END 2017-04-25 | LOC: M OUTALCOH 09:53 | DX: F11.20 Opioid dependence, uncomplicated (principal); F12.20 Cannabis dependence, uncomplicated; F17.200 Nicotine dependence, unspecified, uncomplicated ==

== ENCOUNTER 2017-05-09 01:44 | Inpatient (IN) | payer MEDICAID ==
[2017-05-09 02:46] LABS: BASO # 0.1 10^3/uL (0.0-0.2); BASO % 0.6 % (0.0-1.0); EOS # 0.3 10^3/uL (0.0-0.50); HEMATOCRIT 42.4 % (36.0-47.0); HEMOGLOBIN 13.6 g/dl (12.0-16.0); IMMATURE GRANULOCYTE % 0.3 % (0-3.0); LYMPH # 2.7 10^3/uL (1.5-6.5); MEAN CORPUSCULAR HGB CONC 32.1 g/dl (32.0-36.5); MEAN CORPUSCULAR VOLUME 81.1 fl (80.0-96.0); MONO # 0.8 10^3/uL (0.0-0.8); MONO % 6.1 % (0.0-5.0); NEUTROPHILS # 8.9 10^3/uL (1.8-7.7); PLATELET COUNT, AUTOMATED 300 10^3/uL (150-450); RED BLOOD COUNT 5.23 10^6/uL (4.00-5.40); RED CELL DISTRIBUTION WIDTH 14.4 % (11.5-14.5); WHITE BLOOD COUNT 12.7 10^3/uL (4.0-10.0)
[2017-05-09 02:51] LABS: CONTROL LINE HCG INT CTR LINE PRESENT; HCG, SERUM QUALITATIVE NEGATIVE (NEGATIVE)
[2017-05-09 02:56] LABS: POS COUNT POS FLAG
[2017-05-09] MEDS: NS 1,000 ML IV (03:00)
[2017-05-09 03:08] LABS: ALBUMIN 4.1 GM/DL (3.2-5.2); ALBUMIN/GLOBULIN RATIO 1.03 (1.00-1.93); ALKALINE PHOSPHATASE 89 U/L (45-117); ALT/SGPT 22 U/L (12-78); ANION GAP 10 MEQ/L (8-16); AST/SGOT 46 U/L (7-37); BILIRUBIN,DIRECT < 0.1 MG/DL (0.0-0.2); BILIRUBIN,TOTAL 0.3 MG/DL (0.2-1.0); BLOOD UREA NITROGEN 6 MG/DL (7-18); CARBON DIOXIDE LEVEL 23 MEQ/L (21-32); CHLORIDE LEVEL 106 MEQ/L (98-107); CPK CREATINE PHOSPHOKINASE 826 U/L (26-192); CREATININE FOR GFR 0.88 MG/DL (0.55-1.30); GLOMERULAR FILTRATION RATE > 60.0 (>60); GLUCOSE, FASTING 105 MG/DL (70-100); POTASSIUM SERUM 4.3 MEQ/L (3.5-5.1); SALICYLATE LEVEL 4.3 MG/DL (5.0-30.0); SODIUM LEVEL 139 MEQ/L (136-145); TOTAL PROTEIN 8.1 GM/DL (6.4-8.2)
[2017-05-09 03:09] LABS: ACETAMINOPHEN LEVEL < 2.0 UG/ML (10.0-30.0); ETHYL ALCOHOL (ETHANOL) < 0.003 % (0.000-0.010)
[2017-05-09 04:56] LABS: AMPHETAMINES LEVEL URINE NEGATIVE (NEGATIVE); BARBITURATES URINE NEGATIVE (NEGATIVE); BENZODIAZEPINES URINE NEGATIVE (NEGATIVE); CANNABINOIDS URINE NEGATIVE (NEGATIVE); COCAINE METABOLITE URINE NEGATIVE (NEGATIVE); METHADONE URINE NEGATIVE (NEGATIVE); OPIATES URINE NEGATIVE (NEGATIVE); PHENCYCLIDINE URINE NEGATIVE (NEGATIVE)
[2017-05-09] MEDS: BUPRENORPHINE/NALOXONE 8-2MG SUBLINGUAL TABLET(SUBOXONE) SL ×2 (09:00→16:51)
[2017-05-09] MEDS ORDERED: buPROPion (WELLBUTRIN SR) 100 MG SR TAB PO (09:00)
[2017-05-09] MEDS ORDERED: ENTER DRUG NAME HERE (PATIENT'S OWN MED) TD (10:15)
[2017-05-09] MEDS ORDERED: MUPIROCIN 2% OINT 22 GM TUBE TOP (10:30)
[2017-05-09] MEDS: TOPIRAMATE (TopAMAX) 100 MG TAB PO (11:56)
[2017-05-09] MEDS: GABAPENTIN 400 MG CAP PO ×2 (11:56→21:16)
[2017-05-09] MEDS ORDERED: traZODone 50 MG TAB PO (12:00)
[2017-05-09] MEDS ORDERED: MOM 30ML SUSPENSION UDC PO (12:00)
[2017-05-09] MEDS ORDERED: MAALOX 30 ML SUSP *UDC PO (12:00)
[2017-05-09 12:01] LABS: HEPATITIS B SURFACE ANTIGEN NEGATIVE (NEGATIVE)
[2017-05-09 12:28] LABS: HEPATITIS C VIRUS ABY INDEX 0.1 INDEX (<0.8)
[2017-05-09 12:28] LABS: HEPATITIS B CORE ANTIBODY IGM NEGATIVE (NEGATIVE)
[2017-05-09 12:30] LABS: HEPATITIS A ANTIBODY IGM NEGATIVE (NEGATIVE)
[2017-05-09 16:05] LABS: KETONE, URINE AUTO RFX NEGATIVE (NEGATIVE); LEUKOCYTE ESTERASE UR AUTO RFX NEGATIVE (NEGATIVE); NITRITE, URINE AUTO RFX NEGATIVE (NEGATIVE); RBC, URINE AUTO RFX 3 /HPF (0-3); SPECIFIC GRAVITY UR AUTO RFX 1.011 (1.002-1.035); SQUAM EPITHELIAL CELL UR AURFX 4 /HPF (0-6); WBC, URINE AUTO RFX 1 /HPF (0-3)
[2017-05-09] MEDS: NICOTINE 21MG/24HR 1 EA TRANSDERMAL TD (16:52)
[2017-05-09] MEDS: ARIPiprazole 10 MG TAB PO (21:16)
[2017-05-09] MEDS: OLANZapine 5 MG TAB PO (21:16)
[2017-05-10 06:47] LABS: HEMATOCRIT 39.8 % (36.0-47.0); HEMOGLOBIN 12.7 g/dl (12.0-16.0); MEAN CORPUSCULAR HGB CONC 31.9 g/dl (32.0-36.5); MEAN CORPUSCULAR VOLUME 81.4 fl (80.0-96.0); PLATELET COUNT, AUTOMATED 296 10^3/uL (150-450); RED BLOOD COUNT 4.89 10^6/uL (4.00-5.40); RED CELL DISTRIBUTION WIDTH 14.7 % (11.5-14.5); WHITE BLOOD COUNT 9.1 10^3/uL (4.0-10.0)
[2017-05-10 07:05] LABS: ALBUMIN 3.5 GM/DL (3.2-5.2); ALBUMIN/GLOBULIN RATIO 1.06 (1.00-1.93); ALKALINE PHOSPHATASE 81 U/L (45-117); ALT/SGPT 17 U/L (12-78); ANION GAP 8 MEQ/L (8-16); AST/SGOT 16 U/L (7-37); BILIRUBIN,TOTAL 0.2 MG/DL (0.2-1.0); BLOOD UREA NITROGEN 10 MG/DL (7-18); CALCIUM LEVEL 8.6 MG/DL (8.5-10.1); CARBON DIOXIDE LEVEL 25 MEQ/L (21-32); CHLORIDE LEVEL 109 MEQ/L (98-107); CPK CREATINE PHOSPHOKINASE 208 U/L (26-192); CREATININE FOR GFR 0.87 MG/DL (0.55-1.30); GLOMERULAR FILTRATION RATE > 60.0 (>60); GLUCOSE, FASTING 92 MG/DL (70-100); POTASSIUM SERUM 4.1 MEQ/L (3.5-5.1); SODIUM LEVEL 142 MEQ/L (136-145); TOTAL PROTEIN 6.8 GM/DL (6.4-8.2)
[2017-05-10] MEDS: TOPIRAMATE (TopAMAX) 100 MG TAB PO (10:03)
[2017-05-10] MEDS: GABAPENTIN 400 MG CAP PO ×2 (10:03→20:18)
[2017-05-10] MEDS: BUPRENORPHINE/NALOXONE 8-2MG SUBLINGUAL TABLET(SUBOXONE) SL (10:03)
[2017-05-10] MEDS: NICOTINE 21MG/24HR 1 EA TRANSDERMAL TD (10:04)
[2017-05-10] MEDS: ULIPRISTAL ACETATE 30 MG TAB (ELLA) PO (14:22)
[2017-05-10] MEDS: traZODone 100 MG TAB PO (20:18)
[2017-05-10] MEDS: OLANZapine 5 MG TAB PO (20:18)
[2017-05-10] MEDS: ARIPiprazole 10 MG TAB PO (20:18)
[2017-05-10] MEDS: ACETAMINOPHEN TAB 650MG DOSE (2X325MG) PO (20:19)
[2017-05-11] MEDS: NICOTINE 21MG/24HR 1 EA TRANSDERMAL TD (08:38)
[2017-05-11] MEDS: GABAPENTIN 400 MG CAP PO (08:38)
[2017-05-11] MEDS: TOPIRAMATE (TopAMAX) 100 MG TAB PO (08:38)
[2017-05-11] MEDS: BUPRENORPHINE/NALOXONE 8-2MG SUBLINGUAL TABLET(SUBOXONE) SL (08:38)
== END 2017-05-11 13:15 | disposition home or self-care (01) | DRG 885 ==
LOC: M ED 01:44 → M ED INP 07:49 → M PSY 08:55
PROVIDERS: Psychiatry & Neurology Psychiatry
DX: F31.9 Bipolar disorder, unspecified (principal); F25.9 Schizoaffective disorder, unspecified; F19.159 Other psychoactive substance abuse with psychoactive substance-induced psychotic disorder, unspecified; S51.811A Laceration without foreign body of right forearm, initial encounter; S51.812A Laceration without foreign body of left forearm, initial encounter; G43.709 Chronic migraine without aura, not intractable, without status migrainosus; M54.2 Cervicalgia; R94.5 Abnormal results of liver function studies; F17.210 Nicotine dependence, cigarettes, uncomplicated; Z79.899 Other long term (current) drug therapy; Z88.5 Allergy status to narcotic agent; Z91.5 Personal history of self-harm; X58.XXXA Exposure to other specified factors, initial encounter; Y93.9 Activity, unspecified

== ENCOUNTER 2017-06-19 10:34 | Emergency (ER) | payer OTHER, MEDICAID ==
[2017-06-19 12:25] LABS: HEMATOCRIT 43.6 % (36.0-47.0); MEAN CORPUSCULAR HEMOGLOBIN 26.1 pg (27.0-33.0); MEAN CORPUSCULAR HGB CONC 32.1 g/dl (32.0-36.5); MEAN CORPUSCULAR VOLUME 81.3 fl (80.0-96.0); PLATELET COUNT, AUTOMATED 327 10^3/uL (150-450); RED BLOOD COUNT 5.36 10^6/uL (4.00-5.40); RED CELL DISTRIBUTION WIDTH 15.2 % (11.5-14.5); WHITE BLOOD COUNT 11.8 10^3/uL (4.0-10.0)
[2017-06-19 12:50] LABS: CONTROL LINE HCG INT CTR LINE PRESENT; HCG, SERUM QUALITATIVE NEGATIVE (NEGATIVE)
[2017-06-19 13:06] LABS: ALBUMIN 3.7 GM/DL (3.2-5.2); ALBUMIN/GLOBULIN RATIO 0.93 (1.00-1.93); ALKALINE PHOSPHATASE 73 U/L (45-117); ALT/SGPT 16 U/L (12-78); ANION GAP 9 MEQ/L (8-16); AST/SGOT 17 U/L (7-37); BILIRUBIN,DIRECT < 0.1 MG/DL (0.0-0.2); BILIRUBIN,TOTAL 0.3 MG/DL (0.2-1.0); BLOOD UREA NITROGEN 9 MG/DL (7-18); CARBON DIOXIDE LEVEL 23 MEQ/L (21-32); CHLORIDE LEVEL 109 MEQ/L (98-107); ETHYL ALCOHOL (ETHANOL) < 0.003 % (0.000-0.010); GLOMERULAR FILTRATION RATE > 60.0 (>60); GLUCOSE, FASTING 76 MG/DL (70-100); SALICYLATE LEVEL 4.8 MG/DL (5.0-30.0); SODIUM LEVEL 141 MEQ/L (136-145); TOTAL PROTEIN 7.7 GM/DL (6.4-8.2)
[2017-06-19 13:11] LABS: AMPHETAMINES LEVEL URINE NEGATIVE (NEGATIVE); BARBITURATES URINE NEGATIVE (NEGATIVE); BENZODIAZEPINES URINE POSITIVE (NEGATIVE); CANNABINOIDS URINE NEGATIVE (NEGATIVE); COCAINE METABOLITE URINE NEGATIVE (NEGATIVE); METHADONE URINE NEGATIVE (NEGATIVE); OPIATES URINE NEGATIVE (NEGATIVE); PHENCYCLIDINE URINE NEGATIVE (NEGATIVE)
[2017-06-19 13:35] LABS: ACETAMINOPHEN LEVEL < 2.0 UG/ML (10.0-30.0)
== END 2017-06-19 14:08 | disposition home or self-care (01) ==
LOC: M ED 10:34
DX: L03.113 Cellulitis of right upper limb (principal); F25.9 Schizoaffective disorder, unspecified; F17.200 Nicotine dependence, unspecified, uncomplicated; Z79.899 Other long term (current) drug therapy; Z88.5 Allergy status to narcotic agent
CPT/HCPCS: 80320

== ENCOUNTER 2017-07-25 13:20 | Inpatient (IN) | payer MEDICAID, OTHER ==
[2017-07-25 23:34] LABS: AMPHETAMINES LEVEL URINE POSITIVE (NEGATIVE); BARBITURATES URINE NEGATIVE (NEGATIVE); BENZODIAZEPINES URINE POSITIVE (NEGATIVE); CANNABINOIDS URINE NEGATIVE (NEGATIVE); COCAINE METABOLITE URINE NEGATIVE (NEGATIVE); METHADONE URINE NEGATIVE (NEGATIVE); OPIATES URINE NEGATIVE (NEGATIVE); PHENCYCLIDINE URINE NEGATIVE (NEGATIVE)
[2017-07-25 23:35] LABS: ALBUMIN 3.4 GM/DL (3.2-5.2); ALBUMIN/GLOBULIN RATIO 0.85 (1.00-1.93); ALKALINE PHOSPHATASE 71 U/L (45-117); ALT/SGPT 18 U/L (12-78); ANION GAP 7 MEQ/L (8-16); AST/SGOT 20 U/L (7-37); BILIRUBIN,TOTAL 0.4 MG/DL (0.2-1.0); BLOOD UREA NITROGEN 8 MG/DL (7-18); CALCIUM LEVEL 8.6 MG/DL (8.5-10.1); CARBON DIOXIDE LEVEL 26 MEQ/L (21-32); CHLORIDE LEVEL 106 MEQ/L (98-107); CREATININE FOR GFR 0.62 MG/DL (0.55-1.30); GLOMERULAR FILTRATION RATE > 60.0 (>60); GLUCOSE, FASTING 80 MG/DL (70-100); POTASSIUM SERUM 4.5 MEQ/L (3.5-5.1); SALICYLATE LEVEL 4.5 MG/DL (5.0-30.0); SODIUM LEVEL 139 MEQ/L (136-145); THYROID STIMULATING HORMONE 0.835 uIU/ML (0.358-3.740); TOTAL PROTEIN 7.4 GM/DL (6.4-8.2)
[2017-07-25 23:36] LABS: ACETAMINOPHEN LEVEL < 2.0 UG/ML (10.0-30.0); CONTROL LINE HCG INT CTR LINE PRESENT; ETHYL ALCOHOL (ETHANOL) < 0.003 % (0.000-0.010); HCG, SERUM QUALITATIVE NEGATIVE (NEGATIVE)
[2017-07-26] MEDS ORDERED: MOM 30ML SUSPENSION UDC PO (00:15)
[2017-07-26] MEDS ORDERED: ACETAMINOPHEN TAB 650MG DOSE (2X325MG) PO (00:15)
[2017-07-26] MEDS ORDERED: OLANZapine ORAL DISINTEGRATING TAB 5MG PO (00:15)
[2017-07-26] MEDS ORDERED: MAALOX 30 ML SUSP *UDC PO (00:15)
[2017-07-26 02:41] LABS: HEMATOCRIT 39.6 % (36.0-47.0); HEMOGLOBIN 12.7 g/dl (12.0-15.5); MEAN CORPUSCULAR HEMOGLOBIN 27.1 pg (27.0-33.0); MEAN CORPUSCULAR HGB CONC 32.1 g/dl (32.0-36.5); MEAN CORPUSCULAR VOLUME 84.4 fl (80.0-96.0); PLATELET COUNT, AUTOMATED 257 10^3/uL (150-450); RED BLOOD COUNT 4.69 10^6/uL (4.00-5.40); RED CELL DISTRIBUTION WIDTH 14.1 % (11.5-14.5); WHITE BLOOD COUNT 10.4 10^3/uL (4.0-10.0)
[2017-07-26 06:29] LABS: APPEARANCE, URINE HAZY (CLEAR); BACTERIA, URINE AUTO 1+ (NEGATIVE); BILIRUBIN, URINE AUTO NEGATIVE (NEGATIVE); BLOOD, URINE BLOOD NEGATIVE (NEGATIVE); COLOR, URINE YELLOW (YELLOW); GLUCOSE, URINE (UA) AUTO NEGATIVE (NEGATIVE); KETONE, URINE AUTO TRACE mg/dL (NEGATIVE); LEUKOCYTE ESTERASE, URINE AUTO NEGATIVE (NEGATIVE); MUCUS, URINE SMALL (NEGATIVE); NITRITE, URINE AUTO NEGATIVE (NEGATIVE); PROTEIN, URINE AUTO 1+ mg/dL (NEGATIVE); RBC, URINE AUTO 6 /HPF (0-3); SPECIFIC GRAVITY URINE AUTO 1.028 (1.002-1.035); SQUAMOUS EPITHELIAL CELL UR AU 21 /HPF (0-6); WBC, URINE AUTO 5 /HPF (0-3)
[2017-07-26] MEDS: NICOTINE 21MG/24HR 1 EA TRANSDERMAL TD (09:00)
[2017-07-26] MEDS ORDERED: ENTER DRUG NAME HERE (PATIENT'S OWN MED) TD (09:45)
[2017-07-26] MEDS ORDERED: MUPIROCIN 2% OINT 22 GM TUBE TOP (09:45)
[2017-07-26] MEDS: TOPIRAMATE (TopAMAX) 100 MG TAB PO (09:48)
[2017-07-26] MEDS: GABAPENTIN 400 MG CAP PO ×2 (09:48→21:12)
[2017-07-26] MEDS: CitaloPRAM (CeleXA) 20 MG TAB PO (15:30)
[2017-07-26] MEDS: BUPRENORPHINE/NALOXONE 8-2MG SUBLINGUAL TABLET(SUBOXONE) SL (15:31)
[2017-07-26] MEDS: traZODone 50 MG TAB PO (21:12)
[2017-07-26] MEDS: OLANZapine 5 MG TAB PO (21:12)
[2017-07-27] MEDS: TOPIRAMATE (TopAMAX) 100 MG TAB PO (08:34)
[2017-07-27] MEDS: CitaloPRAM (CeleXA) 20 MG TAB PO (08:34)
[2017-07-27] MEDS: NICOTINE 21MG/24HR 1 EA TRANSDERMAL TD (08:34)
[2017-07-27] MEDS: BUPRENORPHINE/NALOXONE 8-2MG SUBLINGUAL TABLET(SUBOXONE) SL (08:34)
[2017-07-27] MEDS: GABAPENTIN 400 MG CAP PO ×2 (08:34→20:54)
[2017-07-27] MEDS: traZODone 50 MG TAB PO (20:53)
[2017-07-27] MEDS: OLANZapine 5 MG TAB PO (20:54)
[2017-07-28] MEDS: BUPRENORPHINE/NALOXONE 8-2MG SUBLINGUAL TABLET(SUBOXONE) SL (10:13)
[2017-07-28] MEDS: TOPIRAMATE (TopAMAX) 100 MG TAB PO (10:13)
[2017-07-28] MEDS: GABAPENTIN 400 MG CAP PO ×2 (10:13→21:15)
[2017-07-28] MEDS: CitaloPRAM (CeleXA) 20 MG TAB PO (10:13)
[2017-07-28] MEDS: NICOTINE 21MG/24HR 1 EA TRANSDERMAL TD (10:14)
[2017-07-28] MEDS: traZODone 50 MG TAB PO (21:15)
[2017-07-28] MEDS: OLANZapine 5 MG TAB PO (21:15)
[2017-07-29] MEDS: NICOTINE 21MG/24HR 1 EA TRANSDERMAL TD (09:00)
[2017-07-29] MEDS: BUPRENORPHINE/NALOXONE 8-2MG SUBLINGUAL TABLET(SUBOXONE) SL (09:12)
[2017-07-29] MEDS: GABAPENTIN 400 MG CAP PO ×2 (09:12→21:12)
[2017-07-29] MEDS: TOPIRAMATE (TopAMAX) 100 MG TAB PO (09:12)
[2017-07-29] MEDS: CitaloPRAM (CeleXA) 20 MG TAB PO (09:12)
[2017-07-29] MEDS: OLANZapine 5 MG TAB PO (21:12)
[2017-07-29] MEDS: traZODone 50 MG TAB PO (21:13)
[2017-07-30] MEDS: CitaloPRAM (CeleXA) 20 MG TAB PO (08:27)
[2017-07-30] MEDS: GABAPENTIN 400 MG CAP PO (08:27)
[2017-07-30] MEDS: NICOTINE 21MG/24HR 1 EA TRANSDERMAL TD (08:27)
[2017-07-30] MEDS: TOPIRAMATE (TopAMAX) 100 MG TAB PO (08:27)
[2017-07-30] MEDS: BUPRENORPHINE/NALOXONE 8-2MG SUBLINGUAL TABLET(SUBOXONE) SL (08:27)
== END 2017-07-30 13:00 | disposition home or self-care (01) | DRG 885 ==
LOC: M ED 13:20 → M PSY 07-26 01:52
DX: F25.0 Schizoaffective disorder, bipolar type (principal); F19.94 Other psychoactive substance use, unspecified with psychoactive substance-induced mood disorder; Z79.899 Other long term (current) drug therapy; Z88.5 Allergy status to narcotic agent; F41.9 Anxiety disorder, unspecified; E66.9 Obesity, unspecified; M54.5 Low back pain; G43.909 Migraine, unspecified, not intractable, without status migrainosus; Z68.35 Body mass index [BMI] 35.0-35.9, adult; F17.200 Nicotine dependence, unspecified, uncomplicated; M54.2 Cervicalgia; D72.829 Elevated white blood cell count, unspecified

== ENCOUNTER 2018-03-03 01:27 | Emergency (ER) | payer MEDICAID, OTHER ==
[~2018-03-03] VITALS: Ht 170.2 cm; Wt 106.8 kg
[~2018-03-03 01:27] MED LIST changes: +ARIP10TAB PO; +ARIP5TA PO; +ARIS2.4I IM; +BUPR100T3 PO; +CITA40TA4; +CITA40TA4 PO; -GABA-282 PO; +GABA-843 PO; +GABA-845 PO; -GABA600T PO; +GABA600T4 PO; +HYDR1CAP25 PO; +KEFL500C17 PO; +MUPI2OI TOP; +NAPR-885 PO; -NAPR250T45 PO; +NAPR250T82 PO; +NAPR375T4 PO; -NAPR500T3 PO; +NICO21PAT TD; +OLAN15TA; +OLAN15TA PO; +OLAN5TAB PO; +OLAN5ZYD PO; +QUET5TAB PO; +SERO1TAB2 PO; +STOO100C PO; +TOPI50TA9 PO; +TRAZ-160 PO; +TRAZ10TA PO; -TRAZ50TA11 PO; +XULA1DIS TD
[2018-03-03] MEDS ORDERED: ACETAMINOPHEN TAB 650MG DOSE (2X325MG) PO ONE (02:30)
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
[2018-03-03 05:00] VITALS: BP 115/72
[2018-03-03] MEDS ORDERED: IBUPROFEN 800 MG TAB PO ONE (05:00)
== END 2018-03-03 05:10 | disposition home or self-care (01) ==
LOC: M ED 01:27
DX: S00.83XA Contusion of other part of head, initial encounter (principal); Y04.8XXA Assault by other bodily force, initial encounter; Y07.01 Husband, perpetrator of maltreatment and neglect; Y92.89 Other specified places as the place of occurrence of the external cause; Z79.899 Other long term (current) drug therapy; Z88.5 Allergy status to narcotic agent

== ENCOUNTER 2018-06-10 19:37 | Inpatient (IN) | payer OTHER ==
[~2018-06-10] VITALS: Ht 170.2 cm; Wt 104.3 kg
[~2018-06-10 19:37] MED LIST changes: -/QUET10TA OR; -ACET50TA PO; -ARIP10TAB PO; +ARIP1TAB PO; +ARIP1TAB6 PO; -ARIP5TA PO; +MAPA500T17 PO; +SERO1TAB OR
[2018-06-10] MEDS ORDERED: mirtazapine (20:04)
[2018-06-10] MEDS ORDERED: CEPHALEXIN 500 MG CAP PO ONE (21:00)
[2018-06-10] MEDS ORDERED: CITA40TA4 PO (21:18)
[2018-06-10] MEDS ORDERED: TOPI100T9 PO (21:18)
[2018-06-10] MEDS ORDERED: REME30TA PO (21:18)
[2018-06-10] MEDS ORDERED: TRAM50TA2 PO (21:18)
[2018-06-10] MEDS ORDERED: NAPR-885 PO (21:18)
[2018-06-10] MEDS ORDERED: NEUR600T PO (21:18)
[2018-06-10 22:11] LABS: HCG, SERUM QUALITATIVE NEGATIVE (NEGATIVE)
[2018-06-10 22:29] LABS: ACETAMINOPHEN LEVEL < 2.0 UG/ML (10.0-30.0); ALBUMIN 3.9 GM/DL (3.2-5.2); ALT/SGPT 15 U/L (12-78); BILIRUBIN,DIRECT 0.1 MG/DL (0.0-0.2); BILIRUBIN,TOTAL 0.4 MG/DL (0.2-1.0); BLOOD UREA NITROGEN 8 MG/DL (7-18); CALCIUM LEVEL 9.4 MG/DL (8.5-10.1); CARBON DIOXIDE LEVEL 24 MEQ/L (21-32); CHLORIDE LEVEL 105 MEQ/L (98-107); ETHYL ALCOHOL (ETHANOL) < 0.003 % (0.000-0.010); GLOMERULAR FILTRATION RATE > 60.0 (>60); GLUCOSE, FASTING 112 MG/DL (70-100); POTASSIUM SERUM 3.9 MEQ/L (3.5-5.1); SALICYLATE LEVEL 4.5 MG/DL (5.0-30.0); SODIUM LEVEL 136 MEQ/L (136-145); THYROID STIMULATING HORMONE 0.919 uIU/ML (0.358-3.740)
[2018-06-10 23:05] LABS: AMPHETAMINES LEVEL URINE POSITIVE (NEGATIVE); BARBITURATES URINE NEGATIVE (NEGATIVE); BENZODIAZEPINES URINE NEGATIVE (NEGATIVE); CANNABINOIDS URINE NEGATIVE (NEGATIVE); COCAINE METABOLITE URINE NEGATIVE (NEGATIVE); METHADONE URINE NEGATIVE (NEGATIVE); OPIATES URINE NEGATIVE (NEGATIVE); PHENCYCLIDINE URINE NEGATIVE (NEGATIVE)
[2018-06-11 00:08] LABS: HEMATOCRIT 38.8 % (36.0-47.0); HEMOGLOBIN 12.7 g/dl (12.0-15.5); MEAN CORPUSCULAR HEMOGLOBIN 26.6 pg (27.0-33.0); MEAN CORPUSCULAR HGB CONC 32.7 g/dl (32.0-36.5); MEAN CORPUSCULAR VOLUME 81.3 fl (80.0-96.0); PLATELET COUNT, AUTOMATED 413 10^3/uL (150-450); RED BLOOD COUNT 4.77 10^6/uL (4.00-5.40); WHITE BLOOD COUNT 8.1 10^3/uL (4.0-10.0)
[2018-06-11] MEDS ORDERED: MAALOX 30 ML SUSP *UDC PO PRN (00:30)
[2018-06-11] MEDS ORDERED: MOM 30ML SUSPENSION UDC PO PRN (00:30)
[2018-06-11] MEDS ORDERED: MIRTAZAPINE 15 MG TAB PO ONE (00:45)
[2018-06-11 01:14] VITALS: BP 142/92
[2018-06-11 06:53] VITALS: BP 135/67
[2018-06-11] MEDS: CitaloPRAM (CeleXA) 20 MG TAB PO SCH (09:28)
[2018-06-11] MEDS: NICOTINE 21MG/24HR 1 EA TRANSDERMAL TD SCH (09:29)
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
[2018-06-11] MEDS ORDERED: PILL CRUSHER/CUTTER 1 EACH XX PRN (12:45)
[2018-06-11] MEDS: BUPRENORPHINE/NALOXONE 8-2MG SUBLINGUAL TABLET(SUBOXONE) SL SCH (14:46)
[2018-06-11] MEDS: LACTOBACILLUS ACIDOPHILUS CAP (BACID) PO SCH (18:28)
[2018-06-11] MEDS: CEPHALEXIN 500 MG CAP PO SCH ×2 (18:28→21:00)
[2018-06-11 18:36] VITALS: BP 125/85
--- NOTE | 2018-06-11 20:01 | CR.PDOC ---
General Date of Consultation: Jun 11, 2018 Referring Provider: LAYNE RODRIGUES MD Consultation REASON FOR CONSULTATION/CHIEF COMPLAINT: Right hand/forearm cellulitis HISTORY OF PRESENT ILLNESS: The patient is a 32-year-old female with a previous history of polysubstance abuse, schizoaffective disorder, borderline personality disorder, bipolar disorder who is currently admitted to inpatient mental health unit after she cut her neck with a knife to "release pain and stress". She also has been using methamphetamine as well as ecstasyreports last use was about a week ago. She also has cut castañeda over her upper extremities. She was also noted to have erythema/cellulitis for which consultation is being requested. The patient reports having chronic problems with eczema in both handsreports she uses topical betamethasone for the sameshe is unsure of the strength. She reports the redness in her both upper extremities has been present for about a couple of weeks. Denies any associated fevers chills or sweats. Denies any problems with nausea or vomiting. Denies any headache. No chest pain or shortness of breath. No abdominal pain. No change in her bladder or bowel habits. ALLERGIES: Codeine HOME MEDICATIONS: Please see below. PAST MEDICAL HISTORY: Bipolar disorder, borderline personality disorder, polysubstance abuse, chronic back pain/shoulder pain, chronic headaches, Chiari malformation, astigmatism, obesity with a BMI of 35.9 PAST SURGICAL HISTORY: None FAMILY HISTORY: Paternal grandmother has schizophrenia SOCIAL HISTORY: Smokes one pack per dayhas been smoking for around 10-15 years. Denies any alcohol use to me although apparently had reported social alcohol use on admission. In addition to use of methamphetamine ecstasy as noted above, patient also has remote history of cocaine use as well as remote history of heroin use and is currently on Suboxone. Also a remote history of synthetic marijuana REVIEW OF SYSTEMS: Negative for 10 systems except as noted under history of present illness PHYSICAL EXAMINATION: VITAL SIGNS: Please see below. GENERAL APPEARANCE: Sitting up in bed. No distress Eyes: PERRL HENT: Oral mucosa is moist RESPIRATORY: Clear to auscultation bilaterally. No wheeze, no crackles. No distress. CARDIOVASCULAR: S1, S2 heard. Regular rate rhythm. No rubs or gallops ABDOMEN: Soft, nontender EXTREMITIES: Eczematous changes involving bilateral hands. Slight erythematous changes involving the dorsal aspect of both hands. Also smaller area of erythema as well as slight warmth on the right forearm. NEUROLOGICAL: Awake, alert, oriented 3. Answering questions appropriately although occasionally was slow to respond and seemed to stare off into the distance at times. Moving all 4 extremities. Able to ambulate. No lateralizing deficit. Skin examination: As noted above. In addition, patient has cut castañeda on her neck as well as on her upper extremities. LABORATORY DATA: Please see below. ASSESSMENT/PLAN: Bilateral hand cellulitis and eczema: -WBC normal and patient is afebrile -I will treat with 5 days of Keflex and lactobacillus -Topical betamethasone -Outpatient follow-up with dermatology or a primary care provider on discharge for further management of the eczema and cellulitis Cigarette smoking/nicotine abuse: -Counseled patient regarding quitting smoking -Currently has a nicotine patch Bipolar disorder, schizoaffective disorder, borderline personality disorder, polysubstance abuse: -Management per psychiatry Thank you for the consultation. I will sign off for now. Please call with any questions. Vital Signs/I&O Vital Signs Date Time Temp Pulse Resp B/P (MAP) Pulse Ox O2 Delivery O2 Flow Rate FiO2 06/11/18 06:53 98.0 77 16 135/67 (89) 06/10/18 23:44 99 Room Air Laboratory Data Labs 24H Laboratory Tests 2 06/10/18 21:52: Anion Gap 7L, Glomerular Filtration Rate > 60.0, Calcium Level 9.4, Aspartate Amino Transf (AST/SGOT) 21, Alanine Aminotransferase (ALT/SGPT) 15, Alkaline Phosphatase 80, Total Bilirubin 0.4, Direct Bilirubin 0.1, Total Protein 8.0, Albumin 3.9, Albumin/Globulin Ratio 0.95L, Thyroid Stimulating Hormone (TSH) 0.919, Human Chorionic Gonadotropin, Qual NEGATIVE, Salicylates Level 4.5L, Acetaminophen Level < 2.0L, Ethyl Alcohol Level < 0.003 06/10/18 22:38: Urine Amphetamines Screen POSITIVEH, Urine Benzodiazepines Screen NEGATIVE, Urine Opiates Screen NEGATIVE, Urine Methadone Screen NEGATIVE, Urine Barbiturates Screen NEGATIVE, Urine Phencyclidine Screen NEGATIVE, Urine Cocaine Metabolite Screen NEGATIVE, Urine Cannabinoids Screen NEGATIVE 06/10/18 23:38: Nucleated Red Blood Cells % (auto) 0.0 CBC/BMP Laboratory Tests 06/10/18 21:52 06/10/18 23:38 Red Blood Count 4.77, Mean Corpuscular Volume 81.3, Mean Corpuscular Hemoglobin 26.6 L, Mean Corpuscular Hemoglobin Concent 32.7, Red Cell Distribution Width 13.6 Allergies Coded Allergies: codeine (Verified Allergy, Unknown, SWELLING, 06/11/18) Home Medications Scheduled Aripiprazole Lauroxil (Aristada) 882 Mg/3.2 Ml Inj, 882 MG IM MTHLY, (Reported) Buprenorphine HCl/Naloxone HCl (Suboxone 8 mg-2 mg Sl Film) 1 Mis Mis, 1.5 MIS SL DAILY, (Reported) Citalopram Hydrobromide (Citalopram HBr) 40 Mg Tablet, 40 MG PO DAILY, (Reported) Gabapentin (Neurontin) 600 Mg Tablet, 600 MG PO BID, (Reported) Mirtazapine (Remeron) 30 Mg Tablet, 30 MG PO DAILY, (Reported) Norelgestromin/Ethin.estradiol (Xulane Patch) 1 Dis Dis, 1 PATCH TD ASDIRECTED, (Reported) 3 WEEKS ON, 1 WEEK OFF. PATIENT CURRENTLY DOES NOT HAVE PATCH ON. Topiramate (Topiramate) 100 Mg Tablet, 100 MG PO DAILY, (Reported) Scheduled PRN Naproxen (Naproxen) 500 Mg Tablet, 500 MG PO BID PRN for PAIN, (Reported) Tramadol HCl (Tramadol HCl) 50 Mg Tablet, 50 MG PO QID PRN for PAIN, (Reported) CEZAR BURNETTE MD Jun 11, 2018 17:32
[2018-06-11] MEDS ORDERED: MIRTAZAPINE 15 MG TAB PO SCH (21:00)
[2018-06-11] MEDS: MIRTAZAPINE 15 MG TAB PO SCH (21:00)
[2018-06-11] MEDS: BETAMETHASONE VAL 0.1% CR 15 GM TOP SCH (21:44)
[2018-06-12] MEDS: OLANZapine ORAL DISINTEGRATING TAB 5MG PO PRN ×2 (05:10→05:13)
[2018-06-12 07:04] VITALS: BP 140/73
[2018-06-12 07:39] LABS: CHOLESTEROL RISK RATIO 4.265 (<5)
[2018-06-12 08:05] LABS: HEMOGLOBIN A1c 5.5 %
[2018-06-12] MEDS ORDERED: BUPRENORPHINE/NALOXONE 8-2MG SUBLINGUAL TABLET(SUBOXONE) SL SCH (09:00)
[2018-06-12] MEDS: BUPRENORPHINE/NALOXONE 8-2MG SUBLINGUAL TABLET(SUBOXONE) SL SCH (09:00)
[2018-06-12] MEDS: NICOTINE 21MG/24HR 1 EA TRANSDERMAL TD SCH (09:00)
[2018-06-12] MEDS: LACTOBACILLUS ACIDOPHILUS CAP (BACID) PO SCH ×2 (09:47→17:02)
[2018-06-12] MEDS: CEPHALEXIN 500 MG CAP PO SCH ×4 (09:47→21:00)
[2018-06-12] MEDS: CitaloPRAM (CeleXA) 20 MG TAB PO SCH (09:47)
[2018-06-12] MEDS: BETAMETHASONE VAL 0.1% CR 15 GM TOP SCH ×2 (09:47→21:00)
[2018-06-12] MEDS ORDERED: cloNIDine 0.1 MG TAB PO PRN (11:00)
[2018-06-12 18:00] VITALS: BP 120/62
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
[2018-06-12] MEDS: MIRTAZAPINE 15 MG TAB PO SCH (21:00)
[2018-06-13 07:13] VITALS: BP 114/78
[2018-06-13] MEDS: CEPHALEXIN 500 MG CAP PO SCH ×4 (08:55→20:40)
[2018-06-13] MEDS: LACTOBACILLUS ACIDOPHILUS CAP (BACID) PO SCH ×2 (08:55→17:23)
[2018-06-13] MEDS: CitaloPRAM (CeleXA) 20 MG TAB PO SCH (08:55)
[2018-06-13] MEDS: BETAMETHASONE VAL 0.1% CR 15 GM TOP SCH ×2 (08:56→20:40)
[2018-06-13] MEDS: NICOTINE 21MG/24HR 1 EA TRANSDERMAL TD SCH (08:57)
--- NOTE | 2018-06-13 15:45 | ECGEPIP ---
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 Decreased heart rate and improved repolarization compared with 05/09/2017. Electronically Signed On 06-13-2018 15:45:31 EDT by Nicholas Hughes
[2018-06-13 18:11] VITALS: BP 122/63
--- NOTE | 2018-06-13 19:25 | MHIPNPDOC ---
[facility] Progress Note Progress Note DATE OF SERVICE: 06/13/18 HISTORY: Patient is a 32 -year-old Other, female, with a history of polysubstance use, schizoaffective disorder, borderline personality disorder, bipolar disorder who presents with cuts on her neck and withdrawal symptoms from methamphetamine and "sofia" use, positive on urine toxicology. During initial interview she has starring spells and appears as if she is repsonding to internal stimuli, but denies this on questioning. She has psychomotor slowing and poor concentration, but is alert and oriented. She has multiple admissions to [facility], last admission Jul 26 2017 with similar presentation, cuts on neck and after methamphetamine use. Says the power was shut off at home since the bills were not paid and she has been taking methamphetamine for a couple days. Says she had an argument with her possibly over money, but that her memory is "hazy". States that her called the police to get her out of the house after she intentionally cut her neck with a knife "to release pain and stress". During [facility] evaluation she stated that she did not cut her neck intentionally and was hearing command AH. She denies using other drugs apart from the methamphetamine and "sofia". She is on maintenance therapy with suboxone confirmed with her pharmacy. She sees Dr. Deepak Lockett and that her last appointment was approximately 1 month ago. Says she is being set up for her initial therapy session at the end of May with a counselor named "Dale" at [facility]. Currently denies SI/HI, denies AVH, maddy. VITAL SIGNS: See below. NEW TEST RESULTS: see below CURRENT MEDICATIONS: See below. MENTAL STATUS EXAMINATION: General Appearance: unkempt, disheveled, hospital scubs/clothing, healed scars, other (scars bilateral hands from needle use) Build: overweight Demeanor: withdrawn, absent minded Eye Contact: the patient keeps looking at the window and at the wall, not to me. Activity: slowed Behavior: Absent minded, withdrawn Speech: slow, low in volume, non-spontaneous Mood: depressed, disorganized Affect: flat, labile, disorganized Thought Process: logical/linear, depressed, slow Thought Content (Delusions): denies SI, HI, AVH. she denies AV hallucinations but she is responding to internal stimuli Thought Content (Other): guarded, internal-stimuli Thought Content (Aggressive): none reported Perception (Hallucinations): none reported Perception (Other): none reported Cognition (Impairment of): attention/concentration Cognition(Intelligence Est.): average Oriented: Awake, Alert Insight: poor Judgment: Poor Psychosis: Denies DIAGNOSES: 1. Schizophrenia vs Substance induced psychotic disorder 2. Substance induced mood disorder 3. Borderline personality disorder 4. Stimulant use disorder, severe (methamphetamine and "sofia") 5. Tobacco use disorder 6. Opioid use disorder (suboxone maintenance therapy discontinued) 7. R/O Bipolar disorder, current episode depressed 8. R/O Schizoaffective disorder, Bipolar I/II disorder ASSESSMENT: Patient continues to exhibit bizarre behavior, her speech is nonsensical, she doesn't establish eye contact, her eyes are just wandering around the room. She was sitting on her bed when i came to see her and she barely answered my questions, she stood up and sat on the floor. She said she was OK. She is still psychotic. MANAGEMENT PLAN: see above TIME SPENT: 15 minutes. Vital Signs Vital Signs Date Time Temp Pulse Resp B/P (MAP) Pulse Ox O2 Delivery O2 Flow Rate FiO2 06/13/18 18:11 99.1 65 14 122/63 (82) 06/13/18 11:24 Room Air 06/12/18 18:00 99 Current Medications Current Medications Acetaminophen (Tylenol Tab) 650 mg Q6HP PRN PO HEADACHE or DISCOMFORT; Start 06/11/18 at 00:30 Al Hydrox/Mg Hydrox/Simethicone (Mylanta) 30 ml Q4HP PRN PO HEARTBURN/INDIGESTION; Start 06/11/18 at 00:30 Aripiprazole (AbiLIFY) 5 mg BID PO Last administered on 06/13/18at 08:55; Start 06/12/18 at 09:00 Aripiprazole (AbiLIFY) 5 mg QHS PO ; Start 06/11/18 at 21:00; Stop 06/12/18 at 13:17; Status DC Betamethasone Valerate (Valisone) 1 dose BID TOP Last administered on 06/13/18at 08:56; Start 06/11/18 at 21:00 Buprenorphine/ Naloxone (Suboxone 8/2mg) 1.5 tab DAILY SL Last administered on 06/11/18at 14:46; Start 06/11/18 at 13:45; Stop 06/12/18 at 11:00; Status DC Buprenorphine/ Naloxone (Suboxone 8/2mg) 1.5 tab DAILY SL ; Start 06/12/18 at 09:00; Stop 06/12/18 at 09:00; Status DC Cephalexin Monohydrate (Keflex) 500 mg QID PO Last administered on 06/13/18at 17:23; Start 06/11/18 at 17:00; Stop 06/16/18 at 16:59 Citalopram Hydrobromide (CeleXA) 20 mg QAM PO Last administered on 06/13/18at 08:55; Start 06/11/18 at 09:00 Clonidine HCl (Catapres) 0.1 mg BIDP PRN PO ANXIETY/AGITATION; Start 06/12/18 at 11:00 Home Med (Med Rec Complete!) ASDIRECTED XX ; Start 06/10/18 at 21:30; Stop 06/10/18 at 21:30; Status DC Lactobacillus Acidophilus (Bacid) 1 ea BIDWM PO Last administered on 06/13/18at 17:23; Start 06/11/18 at 18:00; Stop 06/16/18 at 17:59 Magnesium Hydroxide (Milk Of Magnesia) 30 ml DAILYPRN PRN PO CONSTIPATION; Start 06/11/18 at 00:30 Mirtazapine (Remeron) 15 mg QHS PO ; Start 06/11/18 at 21:00; Stop 06/11/18 at 21:00; Status DC Mirtazapine (Remeron) 30 mg QHS PO ; Start 06/11/18 at 21:00 Nicotine (Nicoderm Cq 21mg) 1 patch DAILY TD Last administered on 06/11/18at 09:29; Start 06/11/18 at 09:00 Olanzapine (ZyPREXA ZYDIS) 5 mg Q6HP PRN PO ANXIETY/AGITATION; Start 06/11/18 at 00:30 Trazodone HCl (Desyrel) 50 mg QHSP PRN PO INSOMNIA; Start 06/12/18 at 11:00 Allergies Coded Allergies: codeine (Verified Allergy, Unknown, SWELLING, 06/11/18) LAYNE RODRIGUES MD Jun 13, 2018 19:25
[2018-06-13] MEDS: MIRTAZAPINE 15 MG TAB PO SCH (20:40)
[2018-06-14 07:00] VITALS: BP 135/70
[2018-06-14] MEDS: CEPHALEXIN 500 MG CAP PO SCH ×4 (08:38→20:36)
[2018-06-14] MEDS: LACTOBACILLUS ACIDOPHILUS CAP (BACID) PO SCH ×2 (08:38→17:19)
[2018-06-14] MEDS: CitaloPRAM (CeleXA) 20 MG TAB PO SCH (08:38)
[2018-06-14] MEDS: BETAMETHASONE VAL 0.1% CR 15 GM TOP SCH ×2 (08:39→20:34)
[2018-06-14] MEDS: NICOTINE 21MG/24HR 1 EA TRANSDERMAL TD SCH (08:39)
--- NOTE | 2018-06-14 13:49 | MHIPNPDOC ---
[facility] Progress Note Progress Note DATE OF SERVICE: 06/14/18 HISTORY: Patient is a 32 -year-old Other, female, with a history of polysubstance use, schizoaffective disorder, borderline personality disorder, bipolar disorder who presents with cuts on her neck and withdrawal symptoms from methamphetamine and "sofia" use, positive on urine toxicology. During initial interview she has starring spells and appears as if she is repsonding to internal stimuli, but denies this on questioning. She has psychomotor slowing and poor concentration, but is alert and oriented. She has multiple admissions to [facility], last admission Jul 26 2017 with similar presentation, cuts on neck and after methamphetamine use. Says the power was shut off at home since the bills were not paid and she has been taking methamphetamine for a couple days. Says she had an argument with her possibly over money, but that her memory is "hazy". States that her called the police to get her out of the house after she intentionally cut her neck with a knife "to release pain and stress". During [facility] evaluation she stated that she did not cut her neck intentionally and was hearing command AH. She denies using other drugs apart from the methamphetamine and "sofia". She is on maintenance therapy with suboxone confirmed with her pharmacy. She sees Dr. Deepak Lockett and that her last appointment was approximately 1 month ago. Says she is being set up for her initial therapy session at the end of May with a counselor named "Dale" at [facility]. Currently denies SI/HI, denies AVH, maddy. VITAL SIGNS: See below. NEW TEST RESULTS: see below CURRENT MEDICATIONS: See below. MENTAL STATUS EXAMINATION: General Appearance: unkempt, disheveled, personal clothes, healed scars, other (scars bilateral hands from needle use) Build: overweight Demeanor: guarded, paranoid Eye Contact: Intense, she looks at me as if she is suspicious Activity: slowed Behavior: Superficially cooperative, guarded, paranoid Speech: slow, low in volume, non-spontaneous Mood: depressed/irritable Affect: congruent with mood Thought Process: logical/linear, depressed, slow Thought Content (Delusions): denies SI, HI, AVH. she denies AV hallucinations but she is responding to internal stimuli Thought Content (Other): guarded, internal-stimuli Thought Content (Aggressive): none reported Perception (Hallucinations): none reported Perception (Other): none reported Cognition (Impairment of): attention/concentration Cognition(Intelligence Est.): average Oriented: Awake, Alert Insight: poor Judgment: Poor Psychosis: Denies DIAGNOSES: 1. Schizophrenia vs Substance induced psychotic disorder 2. Substance induced mood disorder 3. Borderline personality disorder 4. Stimulant use disorder, severe (methamphetamine and "sofia") 5. Tobacco use disorder 6. Opioid use disorder (suboxone maintenance therapy discontinued) 7. R/O Bipolar disorder, current episode depressed 8. R/O Schizoaffective disorder, Bipolar I/II disorder ASSESSMENT: Patient was asleep when I walked inside of her room and woke her up. she immediately got up and said she was fine. Her demeanor was different from yesterday, her eye contact was intense and she seemed to be paranoid/suspicious even when she had denied thought delusions and denied AV hallucinations. MANAGEMENT PLAN: Increase Abilify to 5 mgs in AM and 7.5 mgs in HS ( she was on 5 mgs PO BID) TIME SPENT: 15 minutes. Vital Signs Vital Signs Date Time Temp Pulse Resp B/P (MAP) Pulse Ox O2 Delivery O2 Flow Rate FiO2 06/14/18 07:00 97.5 61 14 135/70 (91) 06/13/18 11:24 Room Air 06/12/18 18:00 99 Current Medications Current Medications Acetaminophen (Tylenol Tab) 650 mg Q6HP PRN PO HEADACHE or DISCOMFORT; Start 06/11/18 at 00:30 Al Hydrox/Mg Hydrox/Simethicone (Mylanta) 30 ml Q4HP PRN PO HEARTBURN/INDIGESTION; Start 06/11/18 at 00:30 Aripiprazole (AbiLIFY) 5 mg BID PO Last administered on 06/14/18at 08:38; Start 06/12/18 at 09:00 Aripiprazole (AbiLIFY) 5 mg QHS PO ; Start 06/11/18 at 21:00; Stop 06/12/18 at 13:17; Status DC Betamethasone Valerate (Valisone) 1 dose BID TOP Last administered on 06/14/18at 08:39; Start 06/11/18 at 21:00 Buprenorphine/ Naloxone (Suboxone 8/2mg) 1.5 tab DAILY SL Last administered on 06/11/18at 14:46; Start 06/11/18 at 13:45; Stop 06/12/18 at 11:00; Status DC Buprenorphine/ Naloxone (Suboxone 8/2mg) 1.5 tab DAILY SL ; Start 06/12/18 at 09:00; Stop 06/12/18 at 09:00; Status DC Cephalexin Monohydrate (Keflex) 500 mg QID PO Last administered on 06/14/18at 12:42; Start 06/11/18 at 17:00; Stop 06/16/18 at 16:59 Citalopram Hydrobromide (CeleXA) 20 mg QAM PO Last administered on 06/14/18at 08:38; Start 06/11/18 at 09:00 Clonidine HCl (Catapres) 0.1 mg BIDP PRN PO ANXIETY/AGITATION; Start 06/12/18 at 11:00 Home Med (Med Rec Complete!) ASDIRECTED XX ; Start 06/10/18 at 21:30; Stop 06/10/18 at 21:30; Status DC Lactobacillus Acidophilus (Bacid) 1 ea BIDWM PO Last administered on 06/14/18at 08:38; Start 06/11/18 at 18:00; Stop 06/16/18 at 17:59 Magnesium Hydroxide (Milk Of Magnesia) 30 ml DAILYPRN PRN PO CONSTIPATION; Start 06/11/18 at 00:30 Mirtazapine (Remeron) 15 mg QHS PO ; Start 06/11/18 at 21:00; Stop 06/11/18 at 21:00; Status DC Mirtazapine (Remeron) 30 mg QHS PO Last administered on 06/13/18at 20:40; Start 06/11/18 at 21:00 Nicotine (Nicoderm Cq 21mg) 1 patch DAILY TD Last administered on 06/11/18at 09:29; Start 06/11/18 at 09:00 Olanzapine (ZyPREXA ZYDIS) 5 mg Q6HP PRN PO ANXIETY/AGITATION; Start 06/11/18 at 00:30 Trazodone HCl (Desyrel) 50 mg QHSP PRN PO INSOMNIA; Start 06/12/18 at 11:00 Allergies Coded Allergies: codeine (Verified Allergy, Unknown, SWELLING, 06/11/18) LAYNE RODRIGUES MD Jun 14, 2018 13:49
[2018-06-14 18:10] VITALS: BP 127/84
[2018-06-14] MEDS: MIRTAZAPINE 15 MG TAB PO SCH (20:36)
[2018-06-14] MEDS: ACETAMINOPHEN TAB 650MG DOSE (2X325MG) PO PRN (20:37)
[2018-06-14] MEDS: ARIPiprazole 15 MG TAB (AbiLIFY) PO SCH (20:37)
[2018-06-15 07:16] VITALS: BP 120/58
[2018-06-15] MEDS: NICOTINE 21MG/24HR 1 EA TRANSDERMAL TD SCH (09:00)
[2018-06-15] MEDS: LACTOBACILLUS ACIDOPHILUS CAP (BACID) PO SCH ×2 (09:10→17:02)
[2018-06-15] MEDS: CitaloPRAM (CeleXA) 20 MG TAB PO SCH (09:10)
[2018-06-15] MEDS: CEPHALEXIN 500 MG CAP PO SCH ×4 (09:10→20:29)
[2018-06-15] MEDS: BETAMETHASONE VAL 0.1% CR 15 GM TOP SCH ×2 (09:11→20:30)
[2018-06-15 18:00] VITALS: BP 108/75
[2018-06-15] MEDS: MIRTAZAPINE 15 MG TAB PO SCH (20:29)
[2018-06-15] MEDS: ARIPiprazole 15 MG TAB (AbiLIFY) PO SCH (20:30)
[2018-06-15] MEDS: traZODone 50 MG TAB PO PRN (21:03)
[2018-06-16 06:42] VITALS: BP 114/62
[2018-06-16] MEDS: LACTOBACILLUS ACIDOPHILUS CAP (BACID) PO SCH (07:29)
[2018-06-16] MEDS: NICOTINE 21MG/24HR 1 EA TRANSDERMAL TD SCH (08:28)
[2018-06-16] MEDS: CitaloPRAM (CeleXA) 20 MG TAB PO SCH (08:30)
[2018-06-16] MEDS: CEPHALEXIN 500 MG CAP PO SCH ×2 (08:30→12:14)
[2018-06-16] MEDS: BETAMETHASONE VAL 0.1% CR 15 GM TOP SCH ×2 (08:30→20:24)
[2018-06-16] MEDS: ACETAMINOPHEN TAB 650MG DOSE (2X325MG) PO PRN (15:59)
[2018-06-16 18:00] VITALS: BP 106/60
[2018-06-16] MEDS: traZODone 50 MG TAB PO PRN (20:23)
[2018-06-16] MEDS: ARIPiprazole 15 MG TAB (AbiLIFY) PO SCH (20:23)
[2018-06-16] MEDS: MIRTAZAPINE 15 MG TAB PO SCH (20:23)
[2018-06-17 06:19] VITALS: BP 109/67
[2018-06-17] MEDS: NICOTINE 21MG/24HR 1 EA TRANSDERMAL TD SCH (09:06)
[2018-06-17] MEDS: CitaloPRAM (CeleXA) 20 MG TAB PO SCH (09:06)
[2018-06-17] MEDS: BETAMETHASONE VAL 0.1% CR 15 GM TOP SCH ×2 (09:08→20:13)
[2018-06-17] MEDS: ACETAMINOPHEN TAB 650MG DOSE (2X325MG) PO PRN (13:24)
--- NOTE | 2018-06-17 15:29 | MHIPNPDOC ---
[facility] Progress Note Progress Note DATE OF SERVICE: 06/17/18 HISTORY: Patient is a 32 -year-old Other, female, with a history of polysubstance use, schizoaffective disorder, borderline personality disorder, bipolar disorder who presents with cuts on her neck and withdrawal symptoms from methamphetamine and "sofia" use, positive on urine toxicology. During initial interview she has starring spells and appears as if she is repsonding to internal stimuli, but denies this on questioning. She has psychomotor slowing and poor concentration, but is alert and oriented. She has multiple admissions to [facility], last admission Jul 26 2017 with similar presentation, cuts on neck and after methamphetamine use. Says the power was shut off at home since the bills were not paid and she has been taking methamphetamine for a couple days. Says she had an argument with her possibly over money, but that her memory is "hazy". States that her called the police to get her out of the house after she intentionally cut her neck with a knife "to release pain and stress". During [facility] evaluation she stated that she did not cut her neck intentionally and was hearing command AH. She denies using other drugs apart from the methamphetamine and "sofia". She is on maintenance therapy with suboxone confirmed with her pharmacy. She sees Dr. Deepak Lockett and that her last appointment was approximately 1 month ago. Says she is being set up for her initial therapy session at the end of May with a counselor named "Dale" at [facility]. Currently denies SI/HI, denies AVH, maddy. VITAL SIGNS: See below. NEW TEST RESULTS: see below CURRENT MEDICATIONS: See below. MENTAL STATUS EXAMINATION: General Appearance: unkempt, disheveled, personal clothes, healed scars, other (scars bilateral hands from needle use) Build: overweight Demeanor: Less guarded, less paranoid Eye Contact: Less intense, less suspicious Activity: slowed Behavior: Superficially cooperative, a little guarded Speech: slow, low in volume, non-spontaneous Mood: depressed Affect: congruent with mood Thought Process: logical/linear, depressed, slow Thought Content (Delusions): denies SI, HI. She reports she has been experiencing auditory hallucinations but they are less intense, less frequent, less severe than they were last week. They are still commanding in nature but she says she is able to block them off Thought Content (Other): she denies being extremely paranoid but admits some paranoia Thought Content (Aggressive): none reported Perception (Hallucinations): none reported Perception (Other): none reported Cognition (Impairment of): attention/concentration Cognition(Intelligence Est.): average Oriented: Awake, Alert Insight: poor Judgment: Poor Psychosis: she admits to experience auditory hallucinations, she still has some paranoid thoughts DIAGNOSES: 1. Schizophrenia vs Substance induced psychotic disorder 2. Substance induced mood disorder 3. Borderline personality disorder 4. Stimulant use disorder, severe (methamphetamine and "sofia") 5. Tobacco use disorder 6. Opioid use disorder (suboxone maintenance therapy discontinued) 7. R/O Bipolar disorder, current episode depressed 8. R/O Schizoaffective disorder, Bipolar I/II disorder ASSESSMENT: the patient shows some improvement. She is not as suspicious as she was last week. she is able to establish eye contact and her eyes don't show such an intense look as she did last week. she says she can remember what brought her to the Hospital. she says she was hearing voices because she had stopped taking her medications. She says she remembers when she has laid on the floor for hours and she said she did it because the voices were telling her to do that. This inspector automatic typewriter increased her Abilify on Sunday. I will increase it again, since she is beginning to respond to it.. This inspector automatic typewriter told her that if she continues to improve, she might be discharged tomorrow. MANAGEMENT PLAN: Increase Abilify to 7.5 mgs in AM and 10 mgs in HS TIME SPENT: 15 minutes. Vital Signs Vital Signs Date Time Temp Pulse Resp B/P (MAP) Pulse Ox O2 Delivery O2 Flow Rate FiO2 06/17/18 06:19 97.2 62 14 109/67 (81) 06/13/18 11:24 Room Air 06/12/18 18:00 99 Current Medications Current Medications Acetaminophen (Tylenol Tab) 650 mg Q6HP PRN PO HEADACHE or DISCOMFORT Last administered on 06/17/18at 13:24; Start 06/11/18 at 00:30 Al Hydrox/Mg Hydrox/Simethicone (Mylanta) 30 ml Q4HP PRN PO HEARTBURN/INDIGESTION; Start 06/11/18 at 00:30 Aripiprazole (AbiLIFY) 5 mg BID PO Last administered on 06/14/18at 08:38; Start 06/12/18 at 09:00; Stop 06/14/18 at 13:49; Status DC Aripiprazole (AbiLIFY) 5 mg QAM PO Last administered on 06/17/18at 09:06; Start 06/15/18 at 09:00 Aripiprazole (AbiLIFY) 5 mg QHS PO ; Start 06/11/18 at 21:00; Stop 06/12/18 at 13:17; Status DC Aripiprazole (AbiLIFY) 7.5 mg QHS PO Last administered on 06/16/18at 20:23; Start 06/14/18 at 21:00 Betamethasone Valerate (Valisone) 1 dose BID TOP Last administered on 06/17/18at 09:08; Start 06/11/18 at 21:00 Buprenorphine/ Naloxone (Suboxone 8/2mg) 1.5 tab DAILY SL Last administered on 06/11/18at 14:46; Start 06/11/18 at 13:45; Stop 06/12/18 at 11:00; Status DC Buprenorphine/ Naloxone (Suboxone 8/2mg) 1.5 tab DAILY SL ; Start 06/12/18 at 09:00; Stop 06/12/18 at 09:00; Status DC Cephalexin Monohydrate (Keflex) 500 mg QID PO Last administered on 06/16/18at 12:14; Start 06/11/18 at 17:00; Stop 06/16/18 at 16:59; Status DC Citalopram Hydrobromide (CeleXA) 20 mg QAM PO Last administered on 06/17/18at 09:06; Start 06/11/18 at 09:00 Clonidine HCl (Catapres) 0.1 mg BIDP PRN PO ANXIETY/AGITATION; Start 06/12/18 at 11:00 Home Med (Med Rec Complete!) ASDIRECTED XX ; Start 06/10/18 at 21:30; Stop 06/10/18 at 21:30; Status DC Lactobacillus Acidophilus (Bacid) 1 ea BIDWM PO Last administered on 06/16/18at 07:29; Start 06/11/18 at 18:00; Stop 06/16/18 at 17:59; Status DC Magnesium Hydroxide (Milk Of Magnesia) 30 ml DAILYPRN PRN PO CONSTIPATION; Start 06/11/18 at 00:30 Mirtazapine (Remeron) 15 mg QHS PO ; Start 06/11/18 at 21:00; Stop 06/11/18 at 21:00; Status DC Mirtazapine (Remeron) 30 mg QHS PO Last administered on 06/16/18at 20:23; Start 06/11/18 at 21:00 Nicotine (Nicoderm Cq 21mg) 1 patch DAILY TD Last administered on 06/17/18at 09:06; Start 06/11/18 at 09:00 Olanzapine (ZyPREXA ZYDIS) 5 mg Q6HP PRN PO ANXIETY/AGITATION; Start 06/11/18 at 00:30 Trazodone HCl (Desyrel) 50 mg QHSP PRN PO INSOMNIA Last administered on 06/16/18at 20:23; Start 06/12/18 at 11:00 Allergies Coded Allergies: codeine (Verified Allergy, Unknown, SWELLING, 06/11/18) LAYNE RODRIGUES MD Jun 17, 2018 15:29
[2018-06-17 18:12] VITALS: BP 98/54
[2018-06-17] MEDS: MIRTAZAPINE 15 MG TAB PO SCH (20:12)
[2018-06-17] MEDS: traZODone 50 MG TAB PO PRN (20:23)
[2018-06-17] MEDS ORDERED: ARIPiprazole 10 MG TAB PO SCH (21:00)
[2018-06-18 06:12] VITALS: BP 126/58
[2018-06-18] MEDS ORDERED: ARIPiprazole 15 MG TAB (AbiLIFY) PO SCH (09:00)
[2018-06-18] MEDS: BETAMETHASONE VAL 0.1% CR 15 GM TOP SCH (09:00)
[2018-06-18] MEDS: NICOTINE 21MG/24HR 1 EA TRANSDERMAL TD SCH (09:00)
[2018-06-18] MEDS: CitaloPRAM (CeleXA) 20 MG TAB PO SCH (09:15)
[2018-06-18] MEDS: ACETAMINOPHEN TAB 650MG DOSE (2X325MG) PO PRN (10:53)
[2018-06-18] MEDS ORDERED: BETA115CR TOP (11:08)
[2018-06-18] MEDS ORDERED: TOPI100T9 PO (11:08)
[2018-06-18] MEDS ORDERED: TRAZO50TA PO (11:08)
[2018-06-18] MEDS ORDERED: NICO21PAT TD (11:08)
[2018-06-18] MEDS ORDERED: CLONI1TA PO (11:08)
[2018-06-18] MEDS ORDERED: REME30TA PO (11:08)
[2018-06-18] MEDS ORDERED: CELE20TA PO (11:08)
[2018-06-18] MEDS ORDERED: NEUR600T PO (11:08)
[2018-06-18] MEDS ORDERED: NAPR-885 PO (11:08)
[2018-06-18] MEDS ORDERED: ABIL20TA5 PO (11:25)
[2018-06-19] MEDS ORDERED: ARIPiprazole 10 MG TAB PO SCH (09:00)
--- NOTE | 2018-06-25 09:06 | MHDSPDOC ---
[facility] Discharge Summary Discharge Summary DATE OF ADMISSION: Jun 11, 2018 at 00:30 DATE OF DISCHARGE: Jun 18, 2018 at 13:15 DISCHARGE DIAGNOSES: 1. Schizophrenia 2. Substance induced mood disorder 3. Borderline personality disorder 4. Stimulant use disorder, severe (methamphetamine and "sofia") 5. Tobacco use disorder 6. Opioid use disorder 7. 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 During initial interview she has starring spells and appears as if she is repsonding to internal stimuli, but denies this on questioning. She has psychomotor slowing and poor concentration, but is alert and oriented. She has multiple admissions to [facility], last admission Jul 26 2017 with similar presentation, cuts on neck and after methamphetamine use. Says the power was shut off at home since the bills were not paid and she has been taking methamphetamine for a couple days. Says she had an argument with her pos jules over money, but that her memory is "hazy". States that her called the police to get her out of the house after she intentionally cut her neck with a knife "to release pain and stress". During [facility] mental health evaluation she stated that she did not cut her neck intentionally and was hearing command AH. She denies using other drugs apart from the methamphetamine and "sofia". She is on maintenance therapy with suboxone confirmed with her pharmacy. She sees Dr. Deepak Lockett and that her last appointment was approximately 1 month ago. Says she is being set up for her initial therapy session at the end of May with a counselor named "Dale" at [facility]. Currently denies SI/HI, denies AVH, maddy. CONSULTANTS INVOLVED: Medicine for medical work up and treatment of cellulitis R hand arm and eczema. TREATMENT AND PROGRESS ON THE UNIT : Patient admitted on a 9.39 involuntary status. CBC unremarkable, CMP unremarkable, hba1c was 5.5%, hcg negative, tsh within normal range at 0.919, lipid panel showed elevated total cholesterol at 209 mg/dl, LDL 128 mg/dl, tag at 158 mg/dl, EKG within normal limits QTc 443 ms and sinus rhythm. Toxicology was positive for amphetamines. She was restarted on home medications including Suboxone 8-2 mg daily for maintenance therapy (was discontinued during stay as she was overly sedated and stated she did not need the medication), xulane oral contraceptive patch, topiramate 100 mg daily gabapentin 600 mg twice daily. She was seen by medicine who noted cellulitis on R hand/arm and was given 5 days keflex and lactobacillus and topical betamethasone for eczema. Initially she was disorganized paranoid and hearing negative auditory hallucinations, she also had superficial cuts bilaterally on her anterior neck all in context of recent methamphetamine and "sofia use" after argument with . She endorsed depressed mood and affect was flat. She endorsed psychotic symptoms in absence of substance prior. She was suspicious with intense eye contact. She was started on mirtazapine 30 mg nightly for sleep and mood. She was started on abilify 5 mg twice daily for psychosis which was titrated up to 20 mg daily. She attended some therapy groups during stay and received individual therapy and counselling including education regarding polysubstance abuse, tobacco use. She was made aware of risk for and worsening of psychotic symptoms when using synthetic drugs, stimulants, opioids. Her mood improved, she became more organized and denied hallucinations with treatment during stay. Her eye-contact became normal. HOSPITAL COURSE: see above DISCHARGE ASSESSMENT: On discharge patient not suicidal or homicidal, denies hallucinations, paranoia, delusions, maddy. Denies common or rare medication side effects. States she is ready to leave and amenable to outpatient treatment. She requires outpatient followup with dermatology or primary care for treatment of eczema, follow up of lipids and monitoring blood sugars. MENTAL STATUS EXAMINATION ON DISCHARGE: General Appearance: Improved hygiene, hospital scrubs/clothing, healed scars, other (scars bilateral hands from needle use) Build: overweight Demeanor: less withdrawn, less fidgety Eye Contact: normal Activity: less slowed Behavior: cooperative Speech: normal rate, volume, spontaneous Mood: euthymic Mood "better" Affect: euthymic, organized Thought Process: logical/linear Thought Content (Delusions): denies SI, HI, AH, VH, paranoia Thought Content (Other): ready to return home Thought Content (Aggressive): none reported Perception (Hallucinations): none reported Perception (Other): none reported Cognition (Impairment of): none Cognition(Intelligence Est.): average Oriented: Awake, Alert Insight: fair Judgment: fair Psychosis: Denies MEDICATIONS ON DISCHARGE: Scheduled Aripiprazole (Abilify) 20 Mg Tablet, 1 TAB PO DAILY for mood/psychosis for 7 Days The patient must split tablet in half and take half in am and half in hs Aripiprazole Lauroxil (Aristada) 882 Mg/3.2 Ml Inj, 882 MG IM MTHLY Betamethasone Talia (Betamethasone Valerate) 15 Gm Cream..g., 1 DOSE TOP BID for eczema Buprenorphine HCl/Naloxone HCl (Suboxone 8 mg-2 mg Sl Film) 1 Mis Mis, 1.5 MIS SL DAILY Citalopram Hydrobromide (Celexa) 20 Mg Tablet, 20 MG PO QAM for depression Gabapentin (Neurontin) 600 Mg Tablet, 600 MG PO BID for anxiety/pain Mirtazapine (Remeron) 30 Mg Tablet, 30 MG PO DAILY for insomnia Nicotine (Nicotine Patch) 21 Mg Patch.td24, 1 PATCH TD DAILY for nicotine cravings Norelgestromin/Ethin.estradiol (Xulane Patch) 1 Dis Dis, 1 PATCH TD ASDIRECTED 3 WEEKS ON, 1 WEEK OFF. PATIENT CURRENTLY DOES NOT HAVE PATCH ON. Topiramate (Topiramate) 100 Mg Tablet, 100 MG PO DAILY for migraines/ mood stabilizer Scheduled PRN Clonidine Hcl (Clonidine HCl) 0.1 Mg Tablet, 0.1 MG PO BIDP PRN for ANXIETY/AGITATION Naproxen (Naproxen) 500 Mg Tablet, 500 MG PO BID PRN for PAIN Tramadol HCl (Tramadol HCl) 50 Mg Tablet, 50 MG PO QID PRN for PAIN Trazodone HCl (Trazodone HCl) 50 Mg Tablet, 50 MG PO QHSP PRN for insomnia PLAN/FOLLOWUP ARRANGEMENTS: Follow Up Care Education Label * Mental Health Appt 1 * [facility] * Established With This Provider Yes * Therapist Wanda * Date Jun 24, 2018 * Time 15:30 * Follow Up Care Education Label * Care Coordination * Care Coordination/Case Management/Supervision [facility] * Established With This Provider Yes * Delivery Man Yaa * Follow Up Care Education Label * Chemical Dependency Appt1 * Chemical Dependency [facility] * Established With This Provider No * Address of Clinic or Practice [address] * * Additional information walk in hours Mon - Fri 8-4 Follow Up Care Education Label * Smoking Cessation * Smoking Cessation [facility] Smoking Cessation Follow Up Care Education Label * Probation * Established With This Provider Yes * Delivery Man Trinidad Turner * Date Jun 19, 2018 * Time 09:00 * Follow Up Care Education Label * Mental Health Appt 2 * [facility] * Established With This Provider Yes * Therapist Deepak * Date June 28, 2018 * Time 14:00 * Address of Clinic or Practice [facility] * * Additional information This apt. is for injection Follow Up Care Education Label * Mental Health Appt 3 * [facility] * Established With This Provider Yes * Therapist Deepak * Date July 17, 2018 * Time 15:00 * Follow Up Care Education Label * Medical * Medical Follow Up [facility] * Established With This Provider Yes DR RUBIO * Date July 04, 2018 * Time 15:00 * Phone Number [phone] The amount of time spent in the coordination of care for this patient was approximately 25 minutes. Vital Signs/I&Os Vital Signs Date Time Temp Pulse Resp B/P (MAP) Pulse Ox O2 Delivery O2 Flow Rate FiO2 06/18/18 06:12 98.2 60 12 126/58 (80) 06/13/18 11:24 Room Air 06/12/18 18:00 99 Medications Scheduled Aripiprazole (Abilify) 20 Mg Tablet, 1 TAB PO DAILY for mood/psychosis for 7 Days, #7 The patient must split tablet in half and take half in am and half in hs Aripiprazole Lauroxil (Aristada) 882 Mg/3.2 Ml Inj, 882 MG IM MTHLY, (Reported) Betamethasone Talia (Betamethasone Valerate) 15 Gm Cream..g., 1 DOSE TOP BID for eczema, #1 Buprenorphine HCl/Naloxone HCl (Suboxone 8 mg-2 mg Sl Film) 1 Mis Mis, 1.5 MIS SL DAILY, (Reported) Citalopram Hydrobromide (Celexa) 20 Mg Tablet, 20 MG PO QAM for depression, #7 Gabapentin (Neurontin) 600 Mg Tablet, 600 MG PO BID for anxiety/pain, #14 Mirtazapine (Remeron) 30 Mg Tablet, 30 MG PO DAILY for insomnia, #7 Nicotine (Nicotine Patch) 21 Mg Patch.td24, 1 PATCH TD DAILY for nicotine cravings, #7 Norelgestromin/Ethin.estradiol (Xulane Patch) 1 Dis Dis, 1 PATCH TD ASDIRECTED, (Reported) 3 WEEKS ON, 1 WEEK OFF. PATIENT CURRENTLY DOES NOT HAVE PATCH ON. Topiramate (Topiramate) 100 Mg Tablet, 100 MG PO DAILY for migraines/ mood stabilizer, #7 Scheduled PRN Clonidine Hcl (Clonidine HCl) 0.1 Mg Tablet, 0.1 MG PO BIDP PRN for ANXIETY/AGITATION, #14 Naproxen (Naproxen) 500 Mg Tablet, 500 MG PO BID PRN for PAIN, #14 Tramadol HCl (Tramadol HCl) 50 Mg Tablet, 50 MG PO QID PRN for PAIN, (Reported) Trazodone HCl (Trazodone HCl) 50 Mg Tablet, 50 MG PO QHSP PRN for INSOMNIA, #7 Allergies Coded Allergies: codeine (Verified Allergy, Unknown, SWELLING, 06/11/18) JAMAL FLORES PGY-1 Jun 18, 2018 14:01
== END 2018-06-18 13:15 | disposition home or self-care (01) | DRG 750 ==
LOC: M ED 19:37 → M ED INP 06-11 00:30 → M PSY 06-11 01:03
PROVIDERS: ADMIT Psychiatry & Neurology Psychiatry; ATTEND Psychiatry & Neurology Psychiatry
DX: F20.9 Schizophrenia, unspecified (principal); F19.94 Other psychoactive substance use, unspecified with psychoactive substance-induced mood disorder; F11.90 Opioid use, unspecified, uncomplicated; F17.200 Nicotine dependence, unspecified, uncomplicated; F15.90 Other stimulant use, unspecified, uncomplicated; F60.3 Borderline personality disorder; Z79.899 Other long term (current) drug therapy; Z88.5 Allergy status to narcotic agent

== ENCOUNTER 2018-08-27 10:18 | Emergency (ER) | payer OTHER ==
[~2018-08-27] VITALS: Ht 170.2 cm; Wt 102.3 kg
[~2018-08-27 10:18] MED LIST changes: +ABIL20TA5 PO; +BETA115CR TOP; +MM S100C PO; +NEUR600T PO; +REME30TA PO; -STOO100C PO; +TRAM50TA2 PO; -TRAZ-160 PO; +TRAZ-252 PO; +TRAZ1TAB10 PO; -TRAZO50TA PO; +mirtazapine
[2018-08-27 10:33] VITALS: BP 113/59
[2018-08-27] MEDS ORDERED: VENTAER INH (10:57)
[2018-08-27] MEDS ORDERED: BENZ200C70 PO (10:57)
== END 2018-08-27 11:03 | disposition home or self-care (01) ==
LOC: M ED 10:18
DX: L02.411 Cutaneous abscess of right axilla (principal); J20.9 Acute bronchitis, unspecified; R51 Headache; E03.9 Hypothyroidism, unspecified; M79.7 Fibromyalgia; F33.9 Major depressive disorder, recurrent, unspecified; F41.9 Anxiety disorder, unspecified; Z79.899 Other long term (current) drug therapy; Z88.5 Allergy status to narcotic agent; F17.210 Nicotine dependence, cigarettes, uncomplicated

== ENCOUNTER 2020-12-30 13:17 | Inpatient (IN) | payer OTHER ==
[~2020-12-30] VITALS: Ht 170.2 cm; Wt 99.6 kg
[~2020-12-30 13:17] MED LIST changes: +BENZ200C70 PO; -FLUO20CA19; -FLUO20CA19 PO; +FLUO20CA22; +FLUO20CA22 PO; +GABA-282 PO; +GABA-283 PO; -GABA-843 PO; -GABA-845 PO; +MIRT-60 PO; -OLAN15TA; -OLAN15TA PO; +OLAN15TA13; +OLAN15TA13 PO; +OLAN1TAB16 PO; -OLAN5TAB PO; +QUET100T2 PO; -QUET1TAB8 PO; +QUET50TA4 PO; -QUET5TAB PO; -REME30TA PO; -TRAZ10TA PO; +TRAZ1TAB12 PO; +VENTAER INH
[2020-12-30 14:18] LABS: HEMATOCRIT 39.4 % (36.0-47.0); HEMOGLOBIN 12.3 g/dl (12.0-15.5); MEAN CORPUSCULAR HEMOGLOBIN 26.3 pg (27.0-33.0); MEAN CORPUSCULAR HGB CONC 31.2 g/dl (32.0-36.5); MEAN CORPUSCULAR VOLUME 84.2 fl (80.0-96.0); PLATELET COUNT, AUTOMATED 161 10^3/uL (150-450); RED BLOOD COUNT 4.68 10^6/uL (4.00-5.40); WHITE BLOOD COUNT 5.6 10^3/uL (4.0-10.0)
[2020-12-30 14:58] LABS: ACETAMINOPHEN LEVEL < 2.0 UG/ML (10.0-30.0); ALBUMIN 3.4 GM/DL (3.2-5.2); ALT/SGPT 54 U/L (12-78); BILIRUBIN,DIRECT 0.1 MG/DL (0.0-0.2); BILIRUBIN,TOTAL 0.3 MG/DL (0.2-1.0); BLOOD UREA NITROGEN 7 MG/DL (7-18); CALCIUM LEVEL 9.2 MG/DL (8.5-10.1); CARBON DIOXIDE LEVEL 27 MEQ/L (21-32); CHLORIDE LEVEL 103 MEQ/L (98-107); CREATININE FOR GFR 0.83 MG/DL (0.55-1.30); ETHYL ALCOHOL (ETHANOL) < 0.003 % (0.000-0.010); GLOMERULAR FILTRATION RATE > 60.0 (>60); GLUCOSE, FASTING 114 MG/DL (70-100); POTASSIUM SERUM 3.8 MEQ/L (3.5-5.1); SALICYLATE LEVEL < 1.7 MG/DL (5.0-30.0); SODIUM LEVEL 139 MEQ/L (136-145); TOTAL PROTEIN 8.5 GM/DL (6.4-8.2)
[2020-12-30 15:27] LABS: HCG, SERUM QUALITATIVE NEGATIVE (NEGATIVE)
--- NOTE | 2020-12-30 16:19 | REP ---
INDICATION: altered mental status. COMPARISON: 03/03/2018. TECHNIQUE: CT brain performed in the axial plane. Coronal reconstruction images are performed. FINDINGS: The ventricles are normal in size and position.. There is no midline shift or mass effect. Short-white differentiation is well maintained. There is no acute intracranial hemorrhage or extra-axial fluid collection. Bone window examination is unremarkable. The visualized mastoid air cells and paranasal sinuses are clear. IMPRESSION: Negative noncontrast CT brain. <Electronically signed by Refugio Short > 12/30/20 [id number]
[2020-12-30 17:17] LABS: AMPHETAMINES LEVEL URINE POSITIVE (NEGATIVE); BARBITURATES URINE NEGATIVE (NEGATIVE); BENZODIAZEPINES URINE NEGATIVE (NEGATIVE); CANNABINOIDS URINE NEGATIVE (NEGATIVE); COCAINE METABOLITE URINE NEGATIVE (NEGATIVE); METHADONE URINE NEGATIVE (NEGATIVE); OPIATES URINE NEGATIVE (NEGATIVE); PHENCYCLIDINE URINE NEGATIVE (NEGATIVE)
[2020-12-30] MEDS ORDERED: NS 1,000 ML IV ONE (17:35)
[2020-12-30 17:49] LABS: ABG BASE EXCESS -0.3 (-2.0-2.0); ABG HCO3 24.9 MEQ/L (22.0-26.0); ABG O2 SATURATION 97.5 % (95.0-99.0); ABG PARTIAL PRESSURE CO2 42.7 mmHg (35.0-45.0); ABG PARTIAL PRESSURE O2 101.8 mmHg (75.0-100.0); ABG STANDARD HCO3 24.2 MEQ/L (22.0-26.0); ABG TOTAL CO2 26.2 MEQ/L (22.0-29.0); ABG pH (ARTERIAL) 7.383 UNITS (7.350-7.450)
[2020-12-30] MEDS ORDERED: ENOXAPARIN 40MG/0.4ML SYRINGE (J1650 PER 10MG) SC ONE (18:10)
--- NOTE | 2020-12-30 18:10 | HPEPDOC ---
[facility] Medical History & Physical Date of Admission Dec 30, 2020 Date of Service: Dec 30, 2020 History and Physical CHIEF COMPLAINT: Altered mental status HISTORY OF PRESENT ILLNESS: Due to altered mental status, patient could not participate with interview and provide review of system. History obtained from the patient's chart and medical records. 35-year-old female with history of self-mutilation substance abuse chronic back shoulder pain headaches with Chiari malformation astigmatism obesity eczema bilateral hand cellulitis nicotine cigarette abuse polysubstance abuse with ecstasy opioids methamphetamines heroin synthetic cannabis was brought in by police due to altered mental status but told police "just shoot me." Patient was brought into the emergency room behavioral unit. Due to altered mental status hospitalist was asked to admit the patient for further evaluation. In the emergency room, CBC metabolic panel liver function test were normal Urine toxicology screen was positive for methamphetamines. Patient was lethargic and could not participate with the interview or neurologic exam. PAST MEDICAL HISTORY: Polysubstance abuse with nicotine alcohol cocaine ecstasy mildly opioids methamphetamine heroin synthetic cannabis Chiari malformation chronic headaches chronic neck back shoulder pain astigmatism obesity eczema bilateral hand cellulitis PAST SURGICAL HISTORY: None SOCIAL HISTORY: nicotine cigarette abuse polysubstance abuse with ecstasy opioids methamphetamines heroin synthetic cannabis with 6-year-old daughter 9-year-old daughter lives with her mother who has custody finished high school took some nursing in college receives SSI FAMILY HISTORY: Paternal grandmother with schizophrenia ALLERGIES: Please see below. REVIEW OF SYSTEMS: 10 point review of system could not be obtained due to altered mental status HOME MEDICATIONS: Please see below. PHYSICAL EXAMINATION: Limited due to altered mental status VITAL SIGNS: See below GENERAL APPEARANCE: Disheveled lethargic HEENT: Unable to assess extraocular muscles pupils equally round reactive to light and accommodation no JVD no thyromegaly no cervical lymphadenopathy CARDIOVASCULAR: S1-S2 regular rate rhythm LUNGS: Clear to auscultation no wheezing rales or rhonchi ABDOMEN: Positive bowel sounds soft nontender nondistended EXTREMITIES: No cyanosis clubbing or pitting edema Neurologic: Lethargic does not follow commands opens eyes spontaneously answers questions at times and goes back to sleep unable to fully examine neurologically due to altered mental status DTRs intact negative Babinski SKIN: Patient has cuts on the right upper extremity bruising, healed scars LABORATORY DATA: See below. IMAGING: See below MICROBIOLOGY: Please see below. ASSESSMENT: 35-year-old female with history of self-mutilation substance abuse chronic back shoulder pain headaches with Chiari malformation astigmatism obesity eczema bilateral hand cellulitis nicotine cigarette abuse polysubstance abuse with ecstasy opioids methamphetamines heroin synthetic cannabis was brought in by police due to altered mental status but told police "just shoot me." Patient was brought into the emergency room behavioral unit. Due to altered mental status hospitalist was asked to admit the patient for further evaluation. In the emergency room, CBC metabolic panel liver function test were normal Urine toxicology screen was positive for methamphetamines. Patient was lethargic and could not participate with the interview or neurologic exam. Amphetamine abuse/substance induced altered mental status/acute encephalopathy -Patient is lethargic we will obtain ammonia and ABG admit to telemetry unit with neuro checks every 4 hourly -CT head is negative. Obtain MRI of the brain due to history of Chiari malformation -No signs of aspiration per bedside NUTRIENT MANAGEMENT SPECIALIST. Suicide ideation -Patient was noted to state the police "just shoot me." -One-on-one observation -Once medically cleared [facility] admission psychiatric evaluation Social alcohol use -Unable to obtain the history. For now placed on CIWA protocol Tobacco abuse -Cessation counseling nicotine replacement therapy as needed Obesity Complicating care Polysubstance abuse - history of heroin, cocaine, mildly, ecstasy, methamphetamine, opioids, synthetic cannabis -Avoid sedatives hypnotics narcotics until mental status improves -Monitor for withdrawal symptoms Disposition: Once medically cleared, psychiatric consultation for possible admission. Vital Signs Vital Signs Date Time Temp Pulse Resp B/P (MAP) Pulse Ox O2 Delivery O2 Flow Rate FiO2 12/30/20 14:17 97.2 95 16 104/58 (73) 96 Room Air Laboratory Data Labs 24H Laboratory Tests 2 12/30/20 13:35: Urine Opiates Screen NEGATIVE, Urine Methadone Screen NEGATIVE, Urine Barbiturates Screen NEGATIVE, Urine Phencyclidine Screen NEGATIVE, Urine Amphetamines Screen POSITIVEH, Urine Benzodiazepines Screen NEGATIVE, Urine Cocaine Metabolite Screen NEGATIVE, Urine Cannabinoids Screen NEGATIVE 12/30/20 13:40: Nucleated Red Blood Cells % (auto) 0.0, Anion Gap 9, Glomerular Filtration Rate > 60.0, Calcium Level 9.2, Total Bilirubin 0.3, Direct Bilirubin 0.1, Aspartate Amino Transf (AST/SGOT) 49H, Alanine Aminotransferase (ALT/SGPT) 54, Alkaline Phosphatase 82, Total Protein 8.5H, Albumin 3.4, Albumin/Globulin Ratio 0.7L, Thyroid Stimulating Hormone (TSH) 2.760, Human Chorionic Gonadotropin, Qual NEGATIVE, Salicylates Level < 1.7L, Acetaminophen Level < 2.0L, Ethyl Alcohol Level < 0.003 12/30/20 16:27: Urine Color YELLOW, Urine Appearance CLEAR, Urine pH 6.0, Urine Specific [place] 1.006, Urine Protein NEGATIVE, Urine Glucose (UA) NEGATIVE, Urine Ketones NEGATIVE, Urine Blood NEGATIVE, Urine Nitrite NEGATIVE, Urine Bilirubin NEGATIVE, Urine Urobilinogen 0.2, Urine Leukocyte Esterase 2+H, Urine WBC (Auto) 6H, Urine RBC (Auto) 1, Urine Hyaline Casts (Auto) 0, Urine Bacteria (Auto) NEGATIVE, Urine Squamous Epithelial Cells 1, Urine Sperm (Auto) 12/30/20 17:27: Blood Gas Bicarbonate Standard 24.2, Arterial Blood pH 7.383, Arterial Blood Partial Pressure CO2 42.7, Arterial Blood Partial Pressure O2 101.8H, Arterial B lood Total CO2 26.2, Arterial Blood HCO3 24.9, Arterial Blood Base Excess -0.3, Arterial Blood Oxygen Saturation 97.5 CBC/BMP Laboratory Tests 12/30/20 13:40 Microbiology Microbiology 12/30/20 Urine Culture, Received Pending Home Medications Scheduled Aripiprazole Lauroxil (Aristada) 882 Mg/3.2 Ml Inj, 882 MG IM MTHLY Betamethasone Talia (Betamethasone Valerate) 15 Gm Cream..g., 1 DOSE TOP BID for eczema Buprenorphine HCl/Naloxone HCl (Suboxone 8 mg-2 mg Sl Film) 1 Mis Mis, 1.5 MIS SL DAILY Citalopram Hydrobromide (Celexa) 20 Mg Tablet, 20 MG PO QAM for depression Gabapentin (Neurontin) 600 Mg Tablet, 600 MG PO BID for anxiety/pain Mirtazapine (Remeron) 30 Mg Tablet, 30 MG PO DAILY for insomnia Norelgestromin/Ethin.estradiol (Xulane Patch) 1 Dis Dis, 1 PATCH TD ASDIRECTED 3 WEEKS ON, 1 WEEK OFF. PATIENT CURRENTLY DOES NOT HAVE PATCH ON. Topiramate (Topiramate) 100 Mg Tablet, 100 MG PO DAILY for migraines/ mood stabilizer Scheduled PRN Albuterol Sulfate (Ventolin Hfa) 18 Gm Hfa.aer.ad, 2 PUFF INH Q4-6HP PRN for wheezing Benzonatate (Benzonatate) 200 Mg Capsule, 200 MG PO TID PRN for COUGH Naproxen (Naproxen) 500 Mg Tablet, 500 MG PO BID PRN for PAIN Tramadol HCl (Tramadol HCl) 50 Mg Tablet, 50 MG PO QID PRN for PAIN Trazodone HCl (Trazodone HCl) 50 Mg Tablet, 50 MG PO QHSP PRN for INSOMNIA Allergies Coded Allergies: codeine (Verified Allergy, Unknown, SWELLING, 06/11/18) A-FIB/CHADSVASC A-FIB History Current/History of A-Fib/PAF?: No Current PO Anticoag Therapy: No Age/Risk Factor Scoring CHADSVASC: CHADSVASC Response (Comments) Value Age Risk Factor Age < 65 years old 0 Gender Risk Factor Female 1 Hx of CHF No 0 Hx of HTN No 0 Hx of Stroke/TIA/or VTE No 0 Hx of Diabetes No 0 Hx of Vascular Disease No 0 Total 1 Treatment Treatment ordered: NONE JAE MARQUEZ MD Dec 30, 2020 18:10
[2020-12-30] MEDS ORDERED: ACETAMINOPHEN TAB 650MG DOSE (2X325MG) PO PRN (18:15)
[2020-12-30] MEDS ORDERED: ONDANSETRON 4MG/2ML VIAL IV PRN (18:15)
[2020-12-30] MEDS ORDERED: NICOTINE POLACRILEX 2 MG GUM PO PRN (19:05)
--- NOTE | 2020-12-30 19:05 | REP ---
INDICATION: AMS. COMPARISON: 01/31/2017. TECHNIQUE: Single portable AP view of the chest was performed. FINDINGS: There is no acute infiltrate or pulmonary edema. Lungs are clear. The heart is not significantly enlarged. The mediastinal silhouette is unremarkable. The visualized osseous structures are intact. IMPRESSION: No acute pulmonary disease. <Electronically signed by Refugio Short > 12/30/20 [id number]
[2020-12-30 19:24] LABS: RSV AMPLIFICATION NEGATIVE (NEGATIVE)
--- NOTE | 2020-12-30 22:16 | REPVR ---
PROCEDURE INFORMATION: Exam: MR Head Without Contrast Exam date and time: 12/30/2020 9:43 PM Age: 35 years old Clinical indication: Altered mental status/memory loss; Other: Drug use; Additional info: AMS methamphetamine use TECHNIQUE: Imaging protocol: MR of the head without contrast. COMPARISON: CT Head without contrast 12/30/2020 4:05 PM FINDINGS: Limitations: Examination is limited by motion artifact. Brain: Few small scattered nonspecific T2/FLAIR hyperintensities of the periventricular and deep subcortical white matter. No intracranial hemorrhage or extra-axial fluid collection. No evidence of mass effect or midline shift. No restricted diffusion to suggest acute infarct. Cerebral ventricles: No ventriculomegaly. Bones/joints: Unremarkable. Paranasal sinuses: Normal as visualized. No acute sinusitis. Mastoid air cells: No mastoid effusion. Orbital cavity: Unremarkable. Soft tissues: Unremarkable. IMPRESSION: 1. No acute intracranial pathology. 2. Few small scattered nonspecific T2/FLAIR hyperintensities of the periventricular and deep subcortical white matter. Differential includes but is not limited to sequela of chronic small vessel ischemic change (though this would be greater than expected for patient's age), demyelinating disease, migraine, or other chronic inflammatory white matter process. Follow-up at the discretion of neurology. Electronically signed by: Sarkis Kamara On 12/30/2020 22:16:18 PM
[2020-12-31 08:00] LABS: HEMATOCRIT 40.4 % (36.0-47.0); HEMOGLOBIN 12.6 g/dl (12.0-15.5); MEAN CORPUSCULAR HEMOGLOBIN 26.2 pg (27.0-33.0); MEAN CORPUSCULAR HGB CONC 31.2 g/dl (32.0-36.5); RED BLOOD COUNT 4.81 10^6/uL (4.00-5.40); WHITE BLOOD COUNT 5.8 10^3/uL (4.0-10.0)
[2020-12-31] MEDS ORDERED: NS 1,000 ML IV ONE ×3 (08:00→18:35)
[2020-12-31 08:06] LABS: PLATELET COUNT, AUTOMATED 399 10^3/uL (150-450)
[2020-12-31 08:28] LABS: ALBUMIN 2.9 GM/DL (3.2-5.2); ALT/SGPT 52 U/L (12-78); BILIRUBIN,TOTAL 0.5 MG/DL (0.2-1.0); BLOOD UREA NITROGEN 5 MG/DL (7-18); CARBON DIOXIDE LEVEL 30 MEQ/L (21-32); CHLORIDE LEVEL 104 MEQ/L (98-107); CREATININE FOR GFR 0.71 MG/DL (0.55-1.30); GLOMERULAR FILTRATION RATE > 60.0 (>60); GLUCOSE, FASTING 84 MG/DL (70-100); POTASSIUM SERUM 4.3 MEQ/L (3.5-5.1); SODIUM LEVEL 137 MEQ/L (136-145); TOTAL PROTEIN 7.7 GM/DL (6.4-8.2)
--- NOTE | 2020-12-31 08:41 | IPN ---
PROGRESS NOTE DATE: 12/31/2020 SUBJECTIVE: Patient was admitted yesterday due to altered mental status secondary to substance abuse with urine toxicology screen being positive for methamphetamine. Patient was lethargic, unable to complete review of systems, but was noted on records to have made suicidal comments to Police saying "just shoot me." Patient was kept overnight on the medical floor, sitter was placed, she was given intravenous fluids. Patient is much more awake and alert this morning. She is irritable and yelling out at the gauge and weigh machine operator to "don't touch me." This morning she otherwise denies any headaches, chest pain, pressure. Refused blood work this morning. Patient's blood pressure is 108/74 at the bedside. She has no I.V. site and refuses phlebotomy and saline lock to be placed. She otherwise has not been noted to be coughing, vomiting. OBJECTIVE: Vital signs: Temperature 98.6, pulse 79, respiratory rate 18, blood pressure 108/74, 98% on room air. General: Awake, alert, oriented to herself. She is not very cooperative with the interview, refuses to do review of systems otherwise she allows examination of her heart and lungs only. HEENT: Unable to assess HEENT as the patient refuses. Lungs: Clear to auscultation, no wheezes, rhonchi or rales. Heart: S1 and S2 sinus rhythm. Abdomen: Soft, nontender, nondistended, positive bowel sounds. Extremities: Patient refused her legs to be examined. LABORATORY DATA/IMAGING STUDIES/MICROBIOLOGY: Have been reviewed. Please see the chart. MRI of the brain shows no acute intracranial pathology. ASSESSMENT: This is a 35-year-old female with a history of schizoaffective disorder, self mutilation, polysubstance abuse with methamphetamine, Eboni, cocaine, tobacco abuse, opioid disorder, cocaine use in remission, substance induced mood disorder, borderline personality disorder and schizophrenia brought in by ambulance yesterday because of altered mental status with comments of "just shoot me." CURRENT ISSUES/PLAN: 1. Suicidal ideation: Patient was noted to say "just shoot me" to Police yesterday when they were called in due to altered mental status. Patient's urine toxicology screen was positive for methamphetamines. She was given I.V. fluids last night, but this morning refused saline lock and phlebotomy. Patient's psychiatrist previously diagnosed her with schizophrenia and substance induced mood disorder with borderline personality disorder. No psychiatric meds have been resumed. We have consulted psychiatrist Dr. Lee today to evaluate the patient for possible involuntary [facility] admission for adjustment of her medications for schizophrenia, mood disorder and borderline personality disorder. 2. Positive urine toxicology screen for methamphetamine with history of opioid abuse, cocaine abuse, Eboni and heroin abuse in the past: Patient is medically stable, currently no issues on telemetry. She will be medically discharged. 3. Hypotension: Patient did receive 1 liter of normal saline yesterday. Current blood pressure is stable at 102/66 and 108/74. No signs of infection. No signs of distress. CBC, metabolic panel have been reviewed. 4. History of Chiari malformation: Per neurologist on-call Dr. Urbina yesterday the Chiari malformation is very small and patient does not need to be seen as an inpatient. No changes in her home medications. History of social alcohol use, heroin abuse, opioids, methamphetamine, Eboni and cocaine in the past. 5. Altered mental status secondary to substance abuse with urine positive for methamphetamine: Resolved. 6. Obesity: Complicating care. 7. Hypotension map 65: adequate bp for now. pt refuses saline lock for ivf. midodrine 10 tid. no signs of bacterial infection or volume loss. 8. enterovirus/rhinovirus: common cold. contact isolation Disposition: Await psychiatric evaluation. Patient will most likely be discharged to Inpatient Mental Health Unit, but we will wait for recommendations from the psychiatrist. MTDD
[2020-12-31] MEDS: ENOXAPARIN 40MG/0.4ML SYRINGE (J1650 PER 10MG) SC SCH (09:00)
[2020-12-31 09:04] LABS: EOSINOPHILS 4 % (0-3); LYMPHOCYTES 43 % (16-44); MONOCYTES 4 % (0-5); NEUTROPHILS 49 % (28-66)
[2020-12-31 09:05] LABS: PLATELET ESTIMATE NORMAL (NORMAL)
[2020-12-31] MEDS: MIDODRINE 5 MG TAB PO SCH ×3 (09:21→21:45)
[2020-12-31] MEDS ORDERED: NEUR100C PO (10:24)
[2020-12-31] MEDS ORDERED: HYDR50TA70 PO (10:24)
[2020-12-31] MEDS ORDERED: CELE40TA PO (10:24)
[2020-12-31] MEDS ORDERED: ZYPR5TAB31 PO (10:24)
[2020-12-31] MEDS ORDERED: REME15TA2 PO (10:24)
[2020-12-31] MEDS ORDERED: BUPR1FIL3 SL (10:24)
[2020-12-31] MEDS ORDERED: ISIB1TAB PO (10:36)
[2020-12-31] MEDS ORDERED: MED NOTE (10:37)
[2020-12-31] MEDS ORDERED: HOME MED LIST COMPLETE! XX SCH (10:40)
[2020-12-31] MEDS ORDERED: NS 1,000 ML IV SCH (12:00)
[2020-12-31] MEDS ORDERED: MIDO10TA PO (13:20)
[2020-12-31] MEDS ORDERED: LINEZOLID 600MG TABLET (ZYVOX) PO ONE (13:30)
[2020-12-31] MEDS ORDERED: LevoFLOXacin 750 MG TABLET PO ONE (13:30)
[2020-12-31] MEDS ORDERED: VANCOMYCIN HCL 1,000 MG, VIAL MATE ADAPTER 1 EACH in NS 250 ML IV SCH (13:30)
--- NOTE | 2020-12-31 14:18 | REP ---
INDICATION: left le abscess. COMPARISON: None. TECHNIQUE: Sonographic evaluation of the left lower extremity in the area of focal swelling and erythema. Color imaging was also performed. FINDINGS: In the medial left calf area with the palpable and visible swelling there is a 2.6 x 1.3 x 3 cm zone which is quite superficial and has edematous appearance in the subcutaneous fat there is color flow within it. No drainable fluid collection is seen. No visible lymph nodes in this field of view. IMPRESSION: 1. Findings suggest cellulitis or very early phlegmonous changes but no drainable abscess at this time in the medial left calf in the area of the palpable and visible abnormality. <Electronically signed by Demar Vail > 12/31/20 [id number]
[2020-12-31 14:22] LABS: C REACTIVE PROTEIN QUANTITATIV 1.27 MG/DL (0.00-0.30)
[2020-12-31] MEDS ORDERED: LIDOCAINE 1% MDV 20ML VIAL As Ordered ONE (14:36)
[2020-12-31 15:23] LABS: ERYTHROCYTE SEDIMENTATION RATE 43 mm/hr (0-20)
[2020-12-31] MEDS: cefTRIAXone SOD 2 GM in D5W MINI-BAG PLUS 50 ML IV SCH (15:39)
--- NOTE | 2020-12-31 15:56 | IPNPDOC ---
Date Seen The patient was seen on 12/31/20. Progress Note ADDENDUM TO PROGRESS NOTE: HYPOTENSION LLE CELLULITIS/?EARLY ABSCESS POOR IV ACCESS / H/O POLYSUBSTANCE ABUSE W COCAINE/HEROIN/GEORGE/OPIOID PLAN: discharge postponed due to persistent hypotension picc LINE PLACED 12/31/20 ns iv BOLUS X 3 LITERS given zyvox and levaquin prior to picc line placement no drainable absces on ultrasound checked MRSA screen iv vanco and iv ceftriaxone until clinically improves x 2-3 days dc plans Sunday if clinically improves and can be changed to po meds. midodrine 1o mg tid surgical consult if abscess worsens. VS, I&O, 24H, Fishbone Vital Signs/I&O Vital Signs Date Time Temp Pulse Resp B/P (MAP) Pulse Ox O2 Delivery O2 Flow Rate FiO2 12/31/20 15:11 52 18 100 Room Air 12/31/20 14:55 99.0 12/31/20 13:37 97/53 (68) I&O- Last 24 Hours up to 6 AM 12/31/20 06:00 Output Total 500 ml Balance -500 ml Laboratory Data 24H LABS Laboratory Tests 2 12/30/20 16:27: Urine Color YELLOW, Urine Appearance CLEAR, Urine pH 6.0, Urine Specific [place] 1.006, Urine Protein NEGATIVE, Urine Glucose (UA) NEGATIVE, Urine Ketones NEGATIVE, Urine Blood NEGATIVE, Urine Nitrite NEGATIVE, Urine Bilirubin NEGATIVE, Urine Urobilinogen 0.2, Urine Leukocyte Esterase 2+H, Urine WBC (Auto) 6H, Urine RBC (Auto) 1, Urine Hyaline Casts (Auto) 0, Urine Bacteria (Auto) NEGATIVE, Urine Squamous Epithelial Cells 1, Urine Sperm (Auto) 12/30/20 17:27: Blood Gas Bicarbonate Standard 24.2, Arterial Blood pH 7.383, Arterial Blood Partial Pressure CO2 42.7, Arterial Blood Partial Pressure O2 101.8H, Arterial Blood Total CO2 26.2, Arterial Blood HCO3 24.9, Arterial Blood Base Excess -0.3, Arterial Blood Oxygen Saturation 97.5 12/30/20 17:39: Coronavirus (COVID-19)(PCR) NEGATIVE, Influenza Type A (RT-PCR) NEGATIVE, Influenza Type B (RT-PCR) NEGATIVE, Respiratory Syncytial Virus (PCR) NEGATIVE 12/31/20 07:41: Neutrophils (%) (Auto) , Nucleated Red Blood Cells % (auto) 0.3H, Neutrophils 49, Lymphocytes (Manual) 43, Monocytes (Manual) 4, Eosinophils (Manual) 4H, Platelet Estimate NORMAL, Erythrocyte Sedimentation Rate 43H, Anion Gap 3L, Glomerular Filtration Rate > 60.0, Calcium Level 9.0, Total Bilirubin 0.5#, Aspartate Amino Transf (AST/SGOT) 48H, Alanine Aminotransferase (ALT/SGPT) 52, Alkaline Phosphatase 75, Ammonia 22, C-Reactive Protein, Quantitative 1.27H, Total Protein 7.7, Albumin 2.9L, Albumin/Globulin Ratio 0.6L CBC/BMP Laboratory Tests 12/31/20 07:41 Microbiology Microbiology 12/30/20 Respiratory Virus Panel (PCR) ([place]) - Final, Complete Human Rhinovirus/Enterovirus 12/30/20 Urine Culture - Final, Complete JAE MARQUEZ MD Dec 31, 2020 15:56
--- NOTE | 2020-12-31 17:19 | REP ---
INDICATION: hypotension for ivf/abx.double lumen. COMPARISON: None. TECHNIQUE: The procedure was performed under the direct supervision of Dr. Short. The risks and benefits of the procedure were explained to the patient and informed consent was obtained. The right brachial vein was localized using ultrasound guidance. The skin was prepped and draped in a sterile fashion. 1 mL of 1% lidocaine was used as a local anesthetic. Using ultrasound guidance the brachial vein was cannulated and a 0.018 guidewire was inserted and advanced to the SVC using fluoroscopic guidance, and last image hold technology. The needle was removed and a 5.5 [place] dilator and peel-away sheath was inserted over the guide wire. A 5.5 [place] dual lumen catheter was cut to length of 45 cm. The dilator was removed and the catheter was inserted over the guide wire with the tip ending in the SVC. The peel-away sheath was removed and the catheter was flushed with heparinized saline as per Hospital protocol. The catheter was affixed to the skin and a sterile dressing was applied. Estimated blood loss: Less than 1 mL The patient tolerated the procedure well and there were no immediate complications. 0.1 minutes of fluoro time was utilized for this procedure. FINDINGS: None IMPRESSION: PICC line insertion right brachial vein with the tip ending in the SVC. <Electronically signed by Matt Paige > 12/31/20 1532 <Electronically signed by Refugio Short > 12/31/20 [id number]
[2020-12-31 18:51] VITALS: BP 105/55
[2020-12-31 18:53] VITALS: BP 105/55
[2020-12-31] MEDS ORDERED: VANCOMYCIN HCL 1,000 MG, VIAL MATE ADAPTER 1 EACH in NS 250 ML IV ONE ×2 (20:00→21:00)
--- NOTE | 2020-12-31 20:44 | ECGEPIP ---
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
[2020-12-31 20:45] VITALS: BP 100/58
[2020-12-31] MEDS: NS 1,000 ML IV SCH ×3 (21:45→22:55)
[2020-12-31] MEDS: SODIUM CHLORIDE 0.9% INJ 10 ML SYR IV PRN ×2 (21:54)
[2020-12-31 22:55] VITALS: BP 100/58
[2021-01-01] VITALS (7 sets, daily range): BP systolic 99–121; BP diastolic 49–71
[2021-01-01] MEDS: SODIUM CHLORIDE 0.9% INJ 10 ML SYR IV PRN ×4 (00:05→06:24)
[2021-01-01] MEDS: NS 1,000 ML IV SCH ×2 (00:05→06:23)
[2021-01-01] MEDS ORDERED: LORazepam 2 MG TAB PO PRN (02:15)
[2021-01-01] MEDS: VANCOMYCIN HCL 750 MG, VIAL MATE ADAPTER 1 EACH in NS 250 ML IV SCH ×4 (03:34→13:47)
[2021-01-01] MEDS: SODIUM CHLORIDE 0.9% INJ 10 ML SYR IV SCH ×2 (06:24→18:45)
[2021-01-01 07:00] LABS: BASO % 0.6 % (0.0-1.0); EOS # 0.2 10^3/uL (0.0-0.5); EOS % 3.8 % (0.0-3.0); HEMATOCRIT 30.2 % (36.0-47.0); LYMPH # 2.1 10^3/uL (1.5-5.0); LYMPH % 40.9 % (24.0-44.0); MEAN CORPUSCULAR HEMOGLOBIN 26.3 pg (27.0-33.0); MEAN CORPUSCULAR HGB CONC 30.5 g/dl (32.0-36.5); MEAN CORPUSCULAR VOLUME 86.3 fl (80.0-96.0); MONO # 0.4 10^3/uL (0.0-0.8); MONO % 8.1 % (2.0-8.0); NEUTROPHILS # 2.3 10^3/uL (1.5-8.5); NEUTROPHILS % 46.4 % (36.0-66.0)
[2021-01-01 07:06] LABS: HEMOGLOBIN 9.2 g/dl (12.0-15.5)
[2021-01-01 07:07] LABS: PLATELET COUNT, AUTOMATED 272 10^3/uL (150-450)
[2021-01-01 07:23] LABS: BLOOD UREA NITROGEN 5 MG/DL (7-18); C REACTIVE PROTEIN QUANTITATIV 0.79 MG/DL (0.00-0.30); CALCIUM LEVEL 6.8 MG/DL (8.5-10.1); CARBON DIOXIDE LEVEL 22 MEQ/L (21-32); CHLORIDE LEVEL 116 MEQ/L (98-107); GLOMERULAR FILTRATION RATE > 60.0 (>60); GLUCOSE, FASTING 88 MG/DL (70-100); POTASSIUM SERUM 3.6 MEQ/L (3.5-5.1); SODIUM LEVEL 145 MEQ/L (136-145)
[2021-01-01] MEDS ORDERED: NS 1,000 ML IV SCH (09:15)
[2021-01-01 09:30] LABS: ERYTHROCYTE SEDIMENTATION RATE 28 mm/hr (0-20)
[2021-01-01] MEDS: MIDODRINE 5 MG TAB PO SCH ×3 (09:58→16:00)
[2021-01-01] MEDS: ENOXAPARIN 40MG/0.4ML SYRINGE (J1650 PER 10MG) SC SCH (09:59)
[2021-01-01] MEDS: KETOROLAC 30 MG/ML 1ML VIAL IV SCH ×2 (09:59→16:27)
--- NOTE | 2021-01-01 10:41 | IPN ---
PROGRESS NOTE DATE: 01/01/2021 SUBJECTIVE: The patient complains of left lower extremity pain, 5/10 on a pain scale, no fever or chills overnight, with purulent bloody drainage at the site. No complaints of shortness of breath, chest pain, pressure or tightness. Awake, alert and oriented to herself, again answering questions appropriately and more cooperative today. PHYSICAL EXAMINATION: LUNGS: Clear to auscultation. No wheezing or rales. HEART: S1, S2, sinus rhythm with episodes of bradycardia. Ventricular rate of 55 to 62. ABDOMEN: Soft, nontender, non-distended. Positive bowel sounds. EXTREMITIES: Left medial calf has a 5.5 x 6 cm indurated mobile fluctuant mass with bloody and purulent drainage. Multiple scabs bilateral lower extremities, track castañeda. LABORATORY DATA/IMAGING STUDIES/MICROBIOLOGY: Have been reviewed. ASSESSMENT AND PLAN: This is a 32-year-old female with history of schizoaffective disorder, self mutilation, polysubstance abuse with opioids, methamphetamine, sofia, heroin, cocaine, social alcohol use, tobacco abuse, substance induced mood disorder, borderline personality disorder, schizophrenia, brought in by ambulance due to altered mental status and comments of well just shoot me. Patient was seen by psychiatrist, who felt that patient can be discharged home, however she became hypotensive, requiring Midodrine and I.V. fluid hydration, found to have an abscess in the left lower extremity and positive for rhinovirus and Enterovirus. IMPRESSION: 1. Severe depression with suicidal ideation; patient was seen by psychiatrist and had discharged the patient. Does not require a sitter or suicide precautions. Psychiatrist said she could be discharged home with outpatient follow-up with [facility] and psychiatrist. 2. Altered mental status secondary to substance abuse with urine positive for methamphetamine; resolved. 3. Polysubstance abuse with methamphetamine positive in the urine with history of cocaine, heroin, opioid, sofia, tobacco and alcohol abuse. Avoid opioids for pain control. 4. Hypotension secondary to infection on Midodrine and I.V. fluids; broadly covered with Vanco and Ceftriaxone. CRP is decreased from 1.27 to 0.79. 5. Hemodilutional anemia; patient received 5.4 liters of fluids yesterday and 2.3 liters from midnight due to severe hypotension. DISPOSITION: Patient will need 2-3 more days of I.V. antibiotics, incision and drainage by surgery, await wound culture results. Human rhinovirus, Enterovirus contact precautions. MTDD
[2021-01-01] MEDS: cefTRIAXone SOD 2 GM in D5W MINI-BAG PLUS 50 ML IV SCH (15:03)
--- NOTE | 2021-01-01 20:10 | ECGEPIP ---
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
--- NOTE | 2021-01-02 16:54 | MHCR ---
[facility] CONSULTATION DATE: 12/31/2020 HISTORY OF PRESENT ILLNESS: The patient is seen via Telepsychiatry due to the current coronavirus crisis. I was asked to evaluate a 31-year-old woman with a significant psychiatric history, last hospitalized at the inpatient mental health unit in 2018. She is diagnosed as schizoaffective, bipolar type, and polysubstance substance use disorder and the patient was admitted to the medical service for altered mental status. She had been using methamphetamines, according to her urine toxicology. Apparently, she was brought in by the police, and she made a statement to the police that they should "just shoot me." When I saw the patient today, she said she could not recall having said anything like that. She insisted that she had no suicidal thoughts. She does not remember at all how she got to the hospital. She says that she is okay, that she is not depressed at this time.. She attends [facility] for psychiatric treatment and she takes multiple medications, including Zyprexa, Remeron, Suboxone, Celexa and hydroxyzine. PAST PSYCHIATRIC HISTORY: Please refer to her past psychiatric admission notes for details of her past psychiatric treatment. MENTAL STATUS EXAMINATION: The patient is alert and oriented times three. She is a little bit groggy, but she is cooperative. There is no formal thought disorder noted. She says her mood is okay and affect appears to be appropriate. She is not psychotic, suicidal or homicidal. Concentration and memory is good. Insight and judgment is good. DIAGNOSES: 1. Schizoaffective disorder, bipolar type. 2. Polysubstance abuse history. TREATMENT RECOMMENDATION: At this point, from a psychiatric point of view, the patient is stable. She is not suicidal. I think it is safe to discharge her home, and apparently, she has her followup appointment scheduled for next week at [facility]. [place]
[2021-01-04 16:13] LABS: Lyme Disease IgG/IgM Antibodie <0.91 ISR (0.00-0.90); Lyme Disease IgM Ab Quantitati <0.80 index (0.00-0.79)
== END 2021-01-01 19:05 | disposition left against medical advice (07) | DRG 770 ==
LOC: M ED 13:17 → M ED INP 13:18 → INTOOBSV 12-31 13:38 → OBSVTOIN 12-31 13:38 → ENRESERV 12-31 16:48 → M MSPAV 12-31 18:40
PROVIDERS: ADMIT General Practice; ATTEND General Practice
PROC: 02HV33Z Insertion of Infusion Device into Superior Vena Cava, Percutaneous Approach (ICD-10-PCS; principal; 2020-12-31 14:35)
DX: F15.14 Other stimulant abuse with stimulant-induced mood disorder (principal); G93.5 Compression of brain; R45.851 Suicidal ideations; I95.9 Hypotension, unspecified; F25.0 Schizoaffective disorder, bipolar type; L03.116 Cellulitis of left lower limb; E66.9 Obesity, unspecified; R41.82 Altered mental status, unspecified; F17.210 Nicotine dependence, cigarettes, uncomplicated; Z79.899 Other long term (current) drug therapy; Z88.5 Allergy status to narcotic agent; F12.10 Cannabis abuse, uncomplicated; F60.3 Borderline personality disorder

== ENCOUNTER 2022-03-05 15:44 | Emergency (ER) | payer OTHER ==
[~2022-03-05] VITALS: Ht 170.2 cm; Wt 99.3 kg
[~2022-03-05 15:44] MED LIST changes: +BUPR-70 PO; -BUPR100T3 PO; +BUPR1FIL3 SL; -CITA40TA4; -CITA40TA4 PO; +CITA40TA7; +CITA40TA7 PO; +HYDR50TA70 PO; +ISIB1TAB PO; +MED NOTE; +MIDO10TA PO; +NEUR100C PO; +REME15TA2 PO; +ZYPR5TAB31 PO
[2022-03-05] MEDS ORDERED: METH5TA PO (15:54)
[2022-03-05] MEDS ORDERED: NS 1,000 ML IV ONE (16:30)
[2022-03-05] MEDS ORDERED: DERMABOND TOPICAL SKIN ADHESIVE TOP ONE (16:35)
[2022-03-05] MEDS ORDERED: ACETAMINOPHEN 500 MG TAB PO ONE (16:50)
[2022-03-05] MEDS ORDERED: LIDOCAINE 1% MDV 20ML VIAL SC ONE (17:40)
[2022-03-05 17:57] LABS: HCG, SERUM QUALITATIVE NEGATIVE (NEGATIVE)
[2022-03-05 18:12] LABS: HEPATITIS B SURFACE ANTIGEN NEGATIVE (NEGATIVE)
[2022-03-05] MEDS ORDERED: CHLO0.124 MT (18:49)
[2022-03-05 19:11] VITALS: BP 134/93
[2022-03-05 19:15] LABS: HEPATITIS C VIRUS ABY INDEX > 11.0 INDEX (<0.8)
[2022-03-05 19:17] LABS: HIV SCREEN CENTAUR SOURCE NEGATIVE (NEGATIVE)
== END 2022-03-05 19:16 | disposition home or self-care (01) ==
LOC: M ED 16:01
DX: S01.81XA Laceration without foreign body of other part of head, initial encounter (principal); S01.319A Laceration without foreign body of unspecified ear, initial encounter; S00.83XA Contusion of other part of head, initial encounter; S06.0X0A Concussion without loss of consciousness, initial encounter; S05.11XA Contusion of eyeball and orbital tissues, right eye, initial encounter; S01.512A Laceration without foreign body of oral cavity, initial encounter; W18.30XA Fall on same level, unspecified, initial encounter; Y92.149 Unspecified place in prison as the place of occurrence of the external cause; G93.40 Encephalopathy, unspecified; F20.9 Schizophrenia, unspecified; F32.9 Major depressive disorder, single episode, unspecified; R45.851 Suicidal ideations; F17.200 Nicotine dependence, unspecified, uncomplicated; Z88.5 Allergy status to narcotic agent